=== PATIENT | male | born 1950 | race Caucasian/White ===

== ENCOUNTER 2021-11-30 15:18 | Inpatient (IN) ==
--- NOTE | 2021-11-30 16:04 | XRay Report ---
XR chest 1V portable CLINICAL HISTORY: Atypical chest pain TECHNIQUE: Single frontal radiograph of the chest was obtained. Comparison: Comparison is made to CT abdomen pelvis 07/10/2015 FINDINGS: No lines and tubes are seen. Cardiomegaly is noted. There is prominence and cephalization of the vasc ulature with Portia B lines seen. No evidence of pleural effusion or pneumothorax. IMPRESSION: Moderate pulmonary edema. Cardiomegaly. ACT 112: Negative or not required by law. Electronically signed by: Henok Queen M.D. 11/30/2021 4:03 PM
[2021-11-30] MEDS ORDERED: STAT IV Infusion **Titration per Protocol STA (16:05)
[2021-11-30] MEDS ORDERED: dilTIAZem HCl 5 MG/ML 5 ML VIAL IV STA (16:05)
--- NOTE | 2021-11-30 16:05 | Emergency Department Note ---
Impression & Plan Atrial tachycardia, Acute CHF ED Provider Note NAME: VIANNEY GLYNN AGE: 71 SEX: M : 1950 ARRIVES VIA: Walk-In INFORMANT: Patient ED PROVIDER(S): Daniel Bowman DO CHIEF COMPLAINT: Shortness of breath HPI: Patient is a 71-year-old male who presents to ER for shortness of breath. He notes this has been present for the past week. He follows with [facility] cardiology. Previous bypass. He notes he is more short of breath with lying flat or anytime he is up walking around. Denies any chest pain. No belly pain, nausea, vomiting, or diarrhea. No dysuria, urgency, or frequency. He does have persistent swelling of his left lower extremities which is unchanged. No other exacerbating or remitting factors. Patient was referred in from urgent care. ROS: See above HPI for pertinent positives & negatives. A total of 10 systems reviewed and were otherwise negative. PAST MEDICAL HISTORY:See Below PAST SURGICAL HISTORY:See Below FAMILY HISTORY:See Below SOCIAL HISTORY:See Below HOME MEDICATIONS:See Below ALLERGIES:See Below VITALS:See Below PHYSICAL EXAMINATION: GENERAL: Sitting up in bed, alert, well appearing, well nourished, no distress, non-toxic, obese EYE EXAM: normal conjunctiva. PERRL and EOM's grossly intact. OROPHARYNX: no exudate, no erythema, lips, buccal mucosa, and tongue normal and mucous membranes are moist NECK: supple, no nuchal rigidity, no adenopathy, non-tender LUNGS: Clear to auscultation. Normal chest wall mechanics HEART: no murmurs, S1 normal and S2 normal ABDOMEN: abdomen soft, non-tender, normo-active bowel sounds, no masses, no rebound or guarding. UPPER EXTREMITIES: upper extremities are grossly normal. LOWER EXTREMITIES: Pitting edema in the lower extremities NEURO EXAM: Normal sensorium, cranial nerves II-XII grossly intact, normal speech, no gross weakness of arms, no gross weakness of legs. MEDICAL DECISION MAKING: Patient is a 71-year-old male who presents ER for above-stated complaint. IV was established blood work was obtained. Labs show no significant leukocytosis or anemia. INR was unremarkable. BMP with a slightly elevated chloride. LFTs bilirubin was unremarkable. proBNP was elevated at 4000. Troponin was detectable but not positive. Covid influenza and RSV were negative. Chest x- ray with some cephalization. His EKG x2 initial appear to be A. fib versus atrial tachycardia with/sinus rhythm with intermittent SVT and the repeat showed a sinus rhythm with questionable SVT. This was reviewed with Dr. Landin who was also unclear as to the true underlying rhythm. Initially after the first EKG patient was given a Cardizem bolus and drip. I did stop this following the repeat EKG and discussed with cardiology. They recommended IV Lopressor 5 mg. They also recommended IV heparin drip in case this is intermittent A. fib. Patient had no bleeding risk factors I discussed this with him at bedside. Discussed with Isabella Sutton patient was admitted for further work-up. Patient remained on heparin upon mission. Triage Nursing notes reviewed. Limited review of prior medical records performed Vital Signs: reviewed and remarkable for HTN Differential diagnosis: Differential diagnoses includes but is not limited to pneumonia, bronchitis, COPD/Asthma exacerbation, pneumothorax, pulmonary embolism, congestive heart failure, acute coronary syndrome ER treatment provided: See below Diagnostics interpreted by me: ECG: Atrial tachycardia rate 139 PVCs present QTC 483 Septal leads No old to compare to EKG #2 Sinus rhythm 112 with intermittent couplets and triplets, PVCs present, right bundle branch block QTC 529 Cardiac Monitoring: An order was placed for continuous cardiac monitoring. The monitor shows a rate of 122 with sinus rhythm. Laboratory studies: As stated above and show below. Imaging studies: Chest x-ray with cephalization Consultation(s): Discussed with cardiology as stated above Discussed with Isabella busch as stated above Procedures: none Critical Care: I have personally spent 31 minutes of critical care time in the direct management of this patient. This includes bedside care, interpretation of diagnostic studies, and testing, discussion with consultants, patient, and family members, and other required patient management activities. This 31 minutes is in excess of all separately billable procedures. Past Med/Surg History Medical History (Updated 11/30/21 @ 20:53 by Daniel Bowman DO) CAD (coronary artery disease) DM type 2 (diabetes mellitus, type 2) Dyslipidemia HTN (hypertension) Kidney stone on left side RBBB (right bundle branch block with left anterior fascicular block) Surgical History H/O neck surgery H/O shoulder surgery S/P CABG x 3 Family History Brother Diabetes Mother Diabetes Social History (Updated 11/30/21 @ 18:52 by LESLIE Rose) Smoking Status: Former smoker Hx Alcohol Use: No Feels Safe at Home: Yes Allergies Allergies Allergy/AdvReac Type Severity Reaction Status Date / Time lisinopril Allergy Intermediate DRY Verified 11/30/21 16:02 CONSISTENT COUGH Home Meds Home Medications Medication Instructions Recorded Confirmed aspirin 81 mg tablet,delayed 81 mg PO DAILY 11/30/21 11/30/21 release ezetimibe 10 mg tablet (Zetia) 10 mg PO PM 11/30/21 11/30/21 metformin 500 mg tablet,extended 1,500 mg PO PM 11/30/21 11/30/21 release 24 hr metoprolol succinate 50 mg 50 mg PO DAILY 11/30/21 11/30/21 tablet,extended release 24 hr simvastatin 80 mg tablet 80 mg PO PM 11/30/21 11/30/21 telmisartan 40 mg tablet 40 mg PO DAILY 11/30/21 11/30/21 Results & Data (ED) Vital Signs Vital Signs - 24 hr 11/30/21 15:29 11/30/21 15:35 11/30/21 15:57 Temperature 36.9 C Temperature Source Temporal Artery Scan Pulse Rate 76 120 H Pulse Rate [Apical] Pulse Rate from SpO2 Sensor 124 H Pulse Rhythm [Apical] Respiratory Rate 20 15 Respiratory Effort / Characteristics Non-Labored Spontaneous Respiratory Depth Normal Blood Pressure 144/89 H Blood Pressure [Right Arm] Blood Pressure Mean 107 Blood Pressure Mean [Right Arm] Blood Pressure Position Sitting Pulse Oximetry 98 94 99 Oxygen Delivery Method Room Air Room Air Sepsis Recent Fever Within 48 Hours No Sepsis New/Unexplained Change in Mental Status N/A Sepsis Action Taken by Nursing No Action Required 11/30/21 16:00 11/30/21 16:10 11/30/21 16:20 Temperature Temperature Source Pulse Rate 121 H 101 H 106 H Pulse Rate [Apical] 113 H Pulse Rate from SpO2 Sensor 122 H 75 76 Pulse Rhythm [Apical] Regular Respiratory Rate 29 H 22 28 H Respiratory Effort / Characteristics Non-Labored Respiratory Depth Normal Blood Pressure Blood Pressure [Right Arm] 113/80 Blood Pressure Mean Blood Pressure Mean [Right Arm] 91 Blood Pressure Position Pulse Oximetry 97 97 96 Oxygen Delivery Method Room Air Sepsis Recent Fever Within 48 Hours Sepsis New/Unexplained Change in Mental Status Sepsis Action Taken by Nursing 11/30/21 16:21 11/30/21 16:25 11/30/21 16:27 Temperature Temperature Source Pulse Rate 110 H 117 H 100 H Pulse Rate [Apical] Pulse Rate from SpO2 Sensor 53 L 111 H 45 L Pulse Rhythm [Apical] Respiratory Rate 23 26 H 28 H Respiratory Effort / Characteristics Respiratory Depth Blood Pressure 113/80 118/76 117/76 Blood Pressure [Right Arm] Blood Pressure Mean 91 90 89 Blood Pressure Mean [Right Arm] Blood Pressure Position Pulse Oximetry 96 96 93 Oxygen Delivery Method Sepsis Recent Fever Within 48 Hours Sepsis New/Unexplained Change in Mental Status Sepsis Action Taken by Nursing 11/30/21 16:30 11/30/21 16:40 Temperature Temperature Source Pulse Rate 112 H 90 Pulse Rate [Apical] Pulse Rate from SpO2 Sensor 71 69 Pulse Rhythm [Apical] Respiratory Rate 21 30 H Respiratory Effort / Characteristics Respiratory Depth Blood Pressure 114/70 Blood Pressure [Right Arm] Blood Pressure Mean 84 Blood Pressure Mean [Right Arm] Blood Pressure Position Pulse Oximetry 93 96 Oxygen Delivery Method Sepsis Recent Fever Within 48 Hours Sepsis New/Unexplained Change in Mental Status Sepsis Action Taken by Nursing Laboratory Data Result diagrams: 11/30/21 16:05 11/30/21 16:05 Lab Results 11/30/21 11/30/21 11/30/21 Range/Units 16:05 16:05 16:05 WBC 6.88 (4.8-10.8) K/uL RBC 4.42 L (4.7-6.1) M/uL Hgb 13.4 L (14.0-18.0) g/dL Hct 42.6 (42-52) % MCV 96.4 (80-100) fL MCH 30.3 (25-34) pg MCHC 31.5 L (32-36) g/dL RDW Std Deviation 50.0 H (36.4-46.3) fL RDW Coeff of Eleuterio 14.2 (11.5-14.5) % Plt Count 231 (130-400) K/uL MPV 10.2 (7.4-10.4) fL Immature Gran % (Auto) 0.0 % Neut % (Auto) 73.9 % Lymph % (Auto) 16.7 % Murray % (Auto) 6.8 % Eos % (Auto) 2.2 % Baso % (Auto) 0.4 % Neut # (Auto) 5.08 (1.4-6.5) K/uL Lymph # (Auto) 1.15 L (1.2-3.4) K/uL Murray # (Auto) 0.47 (0.11-0.59) K/uL Eos # (Auto) 0.15 (0-0.5) K/uL Baso # (Auto) 0.03 (0-0.2) K/uL Immature Gran # (Auto) 0.00 (0.00-0.02) K/uL PT 11.0 (9.0-12.0) Seconds INR 1.1 (0.9-1.1) APTT 22.7 (21.0-31.0) Seconds PTT Ratio 0.9 Sodium 140 (136-145) mmol/L Potassium 4.6 (3.5-5.1) mmol/L Chloride 111 H (98-107) mmol/L Carbon Dioxide 24 (21-32) mmol/L Anion Gap 5.0 (3-11) BUN 31 H (7-18) mg/dl Creatinine 1.33 (0.6-1.4) mg/dl Est Cr Clr Drug Dosing 62.1 ml/min Est GFR ( Amer) 61.5 ml/min Est GFR (Non-Af Amer) 53.0 ml/min BUN/Creatinine Ratio 23.2 H (10-20) Glucose 186 H (70-99) mg/dl Calcium 9.4 (8.5-10.1) mg/dl Total Bilirubin 0.5 (0.2-1) mg/dl AST 14 L (15-37) U/L ALT 39 (12-78) Alkaline Phosphatase 76 (45-117) U/L Troponin I 0.020 (0-0.045) ng/ml NT-Pro-B Natriuret Pep (0-900) pg/ml Total Protein 7.2 (6.4-8.2) gm/dl Albumin 3.7 (3.4-5.0) gm/dl Globulin 3.5 (2.5-4.0) gm/dl Albumin/Globulin Ratio 1.1 (0.9-2) SARS-CoV-2 (PCR) (Negative) Influenza Type A (PCR) (Neg) Influenza Type B (PCR) (Neg) RSV (RT-PCR) (Neg) 11/30/21 11/30/21 Range/Units 16:05 16:05 WBC (4.8-10.8) K/uL RBC (4.7-6.1) M/uL Hgb (14.0-18.0) g/dL Hct (42-52) % MCV (80-100) fL MCH (25-34) pg MCHC (32-36) g/dL RDW Std Deviation (36.4-46.3) fL RDW Coeff of Eleuterio (11.5-14.5) % Plt Count (130-400) K/uL MPV (7.4-10.4) fL Immature Gran % (Auto) % Neut % (Auto) % Lymph % (Auto) % Murray % (Auto) % Eos % (Auto) % Baso % (Auto) % Neut # (Auto) (1.4-6.5) K/uL Lymph # (Auto) (1.2-3.4) K/uL Murray # (Auto) (0.11-0.59) K/uL Eos # (Auto) (0-0.5) K/uL Baso # (Auto) (0-0.2) K/uL Immature Gran # (Auto) (0.00-0.02) K/uL PT (9.0-12.0) Seconds INR (0.9-1.1) APTT (21.0-31.0) Seconds PTT Ratio Sodium (136-145) mmol/L Potassium (3.5-5.1) mmol/L Chloride (98-107) mmol/L Carbon Dioxide (21-32) mmol/L Anion Gap (3-11) BUN (7-18) mg/dl Creatinine (0.6-1.4) mg/dl Est Cr Clr Drug Dosing ml/min Est GFR ( Amer) ml/min Est GFR (Non-Af Amer) ml/min BUN/Creatinine Ratio (10-20) Glucose (70-99) mg/dl Calcium (8.5-10.1) mg/dl Total Bilirubin (0.2-1) mg/dl AST (15-37) U/L ALT (12-78) Alkaline Phosphatase (45-117) U/L Troponin I (0-0.045) ng/ml NT-Pro-B Natriuret Pep 4271 H (0-900) pg/ml Total Protein (6.4-8.2) gm/dl Albumin (3.4-5.0) gm/dl Globulin (2.5-4.0) gm/dl Albumin/Globulin Ratio (0.9-2) SARS-CoV-2 (PCR) NEGATIVE (Negative) Influenza Type A (PCR) Negative (Neg) Influenza Type B (PCR) Negative (Neg) RSV (RT-PCR) Negative (Neg) Administered Medications Heparin Sodium/Dextrose (Heparin Iv Adult Wt-Based Low-Dose With Bolus Protocol) 1 ea IV Q1H [facility]; Protocol Stop: 12/30/21 18:29 Last Admin: 11/30/21 19:12 Dose: Not Given Documented by: [id number] Heparin Sodium/Dextrose (Heparin Sodium/Dextrose) 25,000 units in 500 mls @ 20 mls/hr IV .Q24H [facility]; Protocol Stop: 12/30/21 18:29 Last Admin: 11/30/21 18:45 Dose: 1,000 units/hr, 20 mls/hr Documented by: [id number] Cosigned by: [id number] Discontinued Medications Diltiazem HCl (Diltiazem Hcl 5 Mg/Ml 5 Ml Vial) 10 mg IV NOW STA Stop: 11/30/21 16:06 Last Admin: 11/30/21 16:22 Dose: 10 mg Documented by: [id number] Cosigned by: [id number] Furosemide (Furosemide Inj 20 Mg/2 Ml Vial) 20 mg IV ONE ONE Stop: 11/30/21 16:48 Last Admin: 11/30/21 17:35 Dose: 20 mg Documented by: [id number] Furosemide (Furosemide Inj 20 Mg/2 Ml Vial) 20 mg IV ONE ONE Stop: 11/30/21 18:26 Last Admin: 11/30/21 18:49 Dose: Not Given Documented by: [id number] Furosemide (Furosemide 40 Mg/4 Ml Vial) Confirm Administered Dose 40 mg IV .STK- MED ONE Stop: 11/30/21 18:48 Last Admin: 11/30/21 18:48 Dose: 20 mg Documented by: [id number] Heparin Sodium (Porcine) (Heparin Sod (Porcine) 1000 Unit/Ml) 1 units IV NOW ONE Stop: 11/30/21 18:31 Last Admin: 11/30/21 18:44 Dose: 4,000 units Documented by: [id number] Cosigned by: [id number] Heparin Sodium (Porcine) (Heparin Sod (Porcine) 1000 Unit/Ml) 4,000 units IV NOW ONE Stop: 11/30/21 19:01 Last Admin: 11/30/21 19:01 Dose: Not Given Documented by: [id number] Heparin Sodium/Dextrose (Heparin Iv Adult Wt-Based Low-Dose With Bolus Protocol) 1 ea N/A NOW STA; Protocol Stop: 11/30/21 18:16 Last Admin: 11/30/21 18:45 Dose: 1 ea Documented by: [id number] Diltiazem HCl 125 mg/ Dextrose 125 mls @ 5 mls/hr IV .Q24H [facility]; Protocol Stop: 12/30/21 16:14 Last Titration: 11/30/21 17:39 Dose: 0 mg/hr, 0 mls/hr Documented by: [id number] Cosigned by: [id number] Titration: 11/30/21 17:10 Dose: 0 mg/hr, 0 mls/hr Documented by: [id number] Cosigned by: [id number] Admin: 11/30/21 16:38 Dose: 5 mg/hr, 5 mls/hr Documented by: [id number] Cosigned by: [id number] Metoprolol Tartrate (Metoprolol Tartrate 1 Mg/Ml Vial) 5 mg IV NOW STA Stop: 11/30/21 18:09 Last Admin: 11/30/21 18:26 Dose: 5 mg Documented by: [id number] Miscellaneous (Stat Iv Infusion Titration Per Protocol) 1 ea N/A NOW STA Stop: 11/30/21 16:06 Last Admin: 11/30/21 16:42 Dose: 1 ea Documented by: [id number] Imaging Data Radiologist's Impression: Chest X-Ray 11/30/21 15:35 XR chest 1V portable CLINICAL HISTORY: Atypical chest pain TECHNIQUE: Single frontal radiograph of the chest was obtained. Comparison: Comparison is made to CT abdomen pelvis 07/10/2015 FINDINGS: No lines and tubes are seen. Cardiomegaly is noted. There is prominence and cephalization of the vasculature with Portia B lines seen. No evidence of p leural effusion or pneumothorax. IMPRESSION: Moderate pulmonary edema. Cardiomegaly. ACT 112: Negative or not required by law. Electronically signed by: Henok Queen M.D. 11/30/2021 4:03 PM Discharge Plan Visit Data Chief Complaint: Arrhythmia/Palpitations Stated Complaint: IRREGULAR HEART BEAT ED Provider: Daniel Bowman Discharge Problem: Atrial tachycardia, Acute CHF
[2021-11-30 16:15] LABS: Basophils # (auto) 0.03 K/uL (0-0.2); Basophils % (auto) 0.4 %; Eosinophils # (auto) 0.15 K/uL (0-0.5); Eosinophils % (auto) 2.2 %; Hematocrit (blood only) 42.6 % (42-52); Hemoglobin 13.4 g/dL (14.0-18.0); Lymphocytes # (auto) 1.15 K/uL (1.2-3.4); Lymphocytes % (auto) 16.7 %; Mean Corpuscular Hemoglobin 30.3 pg (25-34); Mean Corpuscular Hgb Conc 31.5 g/dL (32-36); Mean Corpuscular Volume 96.4 fL (80-100); Mean Platelet Volume 10.2 fL (7.4-10.4); Monocytes # (auto) 0.47 K/uL (0.11-0.59); Monocytes % (auto) 6.8 %; Neutrophils # (auto) 5.08 K/uL (1.4-6.5); Neutrophils % (auto) 73.9 %; Platelet Count 231 K/uL (130-400); RDW Coefficient of Variation 14.2 % (11.5-14.5); Red Blood Count 4.42 M/uL (4.7-6.1); White Blood Count 6.88 K/uL (4.8-10.8)
[2021-11-30] MEDS ORDERED: dilTIAZem HCL 125 MG in DEXTROSE 5% 100 ML IV SCH (16:15)
[2021-11-30 16:33] LABS: INR 1.1 (0.9-1.1); Partial Thromboplastin Ratio 0.9; Partial Thromboplastin Time 22.7 Seconds (21.0-31.0)
[2021-11-30 16:37] LABS: Albumin Level 3.7 gm/dl (3.4-5.0); BUN Creatinine Ratio 23.2 (10-20); Calcium 9.4 mg/dl (8.5-10.1); Creatinine Clr Calc Pharmacy 62.1 ml/min; Est GFR (African American) 61.5 ml/min; Potassium 4.6 mmol/L (3.5-5.1)
[2021-11-30 16:41] LABS: Albumin Globulin Ratio 1.1 (0.9-2); Bilirubin,Total 0.5 mg/dl (0.2-1); Globulin 3.5 gm/dl (2.5-4.0); Total Protein 7.2 gm/dl (6.4-8.2); Troponin I 0.02 ng/ml (0-0.045)
[2021-11-30] MEDS ORDERED: FUROSEMIDE INJ 20 MG/2 ML VIAL IV ONE ×2 (16:47→18:25)
[2021-11-30 16:54] LABS: Influenza A virus by PCR Negative (Neg); Influenza B virus by PCR Negative (Neg); RSV by PCR Negative (Neg); SARS CoV2 RNA(COVID-19) InHosp NEGATIVE (Negative)
[2021-11-30] MEDS ORDERED: METOPROLOL TARTRATE 1 MG/ML VIAL IV STA (18:08)
[2021-11-30] MEDS ORDERED: Heparin IV Adult Wt-Based Low-Dose WITH Bolus Protocol STA (18:15)
[2021-11-30] MEDS ORDERED: HEPARIN SODIUM/DEXTROSE 25,000 UNITS/500 ML BAG IV SCH (18:30)
[2021-11-30] MEDS ORDERED: HEPARIN SOD (PORCINE) 1000 UNIT/ML IV ONE ×2 (18:30→19:00)
[2021-11-30] MEDS ORDERED: FUROSEMIDE 40 MG/4 ML VIAL IV ONE (18:47)
--- NOTE | 2021-11-30 19:01 | History & Physical Report ---
Date of Service November 30, 2021 Assessment & Plan (1) Tachycardia: Plan: -Admit to telemetry -Patient presenting by referral of [facility] for evaluation of tachycardia -In the ED, patient's heart rate is in the 130s. EKG shows RBBB and frequent ectopy -Patient given diltiazem 10 mg IV bolus and started on a drip -Case was discussed with cardiology by ED provider. Recommends stopping diltiazem and giving metoprolol 5 mg IV x 1 and starting metoprolol tartrate 25 mg PO q6h (patient on metoprolol succinate 50 mg daily) -Given possible atrial fibrillation, patient will be started on IV heparin drip (2) RBBB (right bundle branch block with left anterior fascicular block): Plan: -History of chronic RBBB (3) Acute CHF: Plan: -CXR shows pulmonary edema, patient reporting exertional shortness of breath, orthopnea, lower extremity edema, proBNP 4200 -? Tachycardia induced vs other -s/p Lasix 20 mg IV in the ED, give an additional Lasix 20 mg IV now -Continue Lasix 40 mg IV daily -Echo (4) CAD (coronary artery disease): Plan: -No reports of chest pain -Continue ASA, statin, Zetia, beta-cassie (5) HTN (hypertension): Plan: -Hold telmisartan while titrating metoprolol (6) DM type 2 (diabetes mellitus, type 2): Plan: -Hgb A1c 7.7 07/2021 -Hold oral agents and utilize NovoLog per protocol while hospitalized (7) DVT prophylaxis: Plan: -On IV heparin drip History of Present Illness Chief Complaint: Shortness of breath Primary Care Provider: Anselmo Junior MD 71-year-old male with PMH DM type II, CAD s/p CABG x 3 in 1999, and other problems listed below who presents to the ED by referral of [facility] for evaluation of tachycardia and shortness of breath. Patient notes worsening exertional shortness of breath over the past week or so. Also reports orthopnea. Patient has some lower extremity edema on exam however patient feels this is near baseline for him towards the end of the day. At [facility], patient was noted to be tachycardic and was referred to the ED for further evaluation. Patient denies chest pain and palpitations. Reports some mild ligh theadedness when standing too quickly. Denies dizziness, diaphoresis, syncopal event. No abdominal pain, nausea, vomiting, diarrhea. Denies urinary symptoms. In the ED, patient was tachycardic in the 130s. EKG shows an unchanged RBBB however with frequent ectopy. CXR shows pulmonary edema. Labs are unremarkable. Patient was given diltiazem 10 mg bolus and started on a drip, Lasix 20 mg IV. Allergies Allergy/AdvReac Type Severity Reaction Status Date / Time lisinopril Allergy Intermediate DRY Verified 11/30/21 16:02 CONSISTENT COUGH Home Medications Medication Instructions Recorded Confirmed Type aspirin 81 mg tablet,delayed 81 mg PO DAILY 11/30/21 11/30/21 History release ezetimibe 10 mg tablet (Zetia) 10 mg PO PM 11/30/21 11/30/21 History metformin 500 mg tablet,extended 1,500 mg PO PM 11/30/21 11/30/21 History release 24 hr metoprolol succinate 50 mg 50 mg PO DAILY 11/30/21 11/30/21 History tablet,extended release 24 hr simvastatin 80 mg tablet 80 mg PO PM 11/30/21 11/30/21 History telmisartan 40 mg tablet 40 mg PO DAILY 11/30/21 11/30/21 History Past Med/Surg History Medical History (Updated 11/30/21 @ 20:53 by Daniel Bowman DO) CAD (coronary artery disease) DM type 2 (diabetes mellitus, type 2) Dyslipidemia HTN (hypertension) Kidney stone on left side RBBB (right bundle branch block with left anterior fascicular block) Surgical History H/O neck surgery H/O shoulder surgery S/P CABG x 3 Family History Brother Diabetes Mother Diabetes Social History (Updated 11/30/21 @ 18:52 by LESLIE Rose) Smoking Status: Former smoker Second Hand Exposure: No; Do You Dip or Chew Tobacco: No; Tobacco Cessation Education Requested by Patient: No Hx Alcohol Use: No Hx Substance Use: No Preferred Language: Samoan Communication Ability Comment: Not applicable Mask Former Required: No Beliefs That Will Affect Care: [place] Current Living Situation: Spouse Feels Safe at Home: Yes Assistive Devices: None Review of Systems Review of Systems: ROS per HPI, all other systems reviewed and negative Physical Exam Constitutional: WD/WN, vitals as above Eyes: PERRL, conjunctivae normal, anicteric sclerae ENMT: external ear and nose normal, oropharynx normal Respiratory: normal respiratory effort; no respiratory distress Auscultation: + crackles (Left base) Cardiovascular: Rate/Rhythm: + tachycardic and + irregularly irregular Vessels: normal peripheral pulses Extremities: + edema (+1 edema BLE) Gastrointestinal (Abdomen): normal bowel sounds, soft, nontender, no hepatosplenomegaly Musculoskeletal: no cyanosis or clubbing, extremities motor strength 5/5 Skin: no rashes, warm and dry Neurologic: PERRL, EOMI, accommodation nl, no face palsy, no dysarthria Psychiatric: A+Ox3, euthymic affect Results & Data Results & Data ([facility]) Vital Signs (Past 12 Hours) Vital Signs Temp Pulse Pulse Resp BP BP Pulse Ox 11/30/21 18:26 120 H 130/71 11/30/21 16:40 90 30 H 96 11/30/21 16:30 112 H 21 114/70 93 11/30/21 16:27 100 H 28 H 117/76 93 11/30/21 16:25 117 H 26 H 118/76 96 11/30/21 16:21 110 H 23 113/80 96 11/30/21 16:20 106 H 113 H 28 H 113/80 96 11/30/21 16:10 101 H 22 97 11/30/21 16:00 121 H 29 H 97 11/30/21 15:57 120 H 15 99 11/30/21 15:35 94 11/30/21 15:29 36.9 C 76 20 144/89 H 98 Laboratory Results Short CBC 11/30/21 Range/Units 16:05 WBC 6.88 (4.8-10.8) K/uL Hgb 13.4 L (14.0-18.0) g/dL Hct 42.6 (42-52) % Plt Count 231 (130-400) K/uL BMP 11/30/21 16:05 Sodium 140 Potassium 4.6 Chloride 111 H Carbon Dioxide 24 BUN 31 H Creatinine 1.33 Glucose 186 H Calcium 9.4 Cardiac Enzymes 11/30/21 Range/Units 16:05 Troponin I 0.020 (0-0.045) ng/ml Liver Function 11/30/21 Range/Units 16:05 Total Bilirubin 0.5 (0.2-1) mg/dl AST 14 L (15-37) U/L ALT 39 (12-78) Alkaline Phosphatase 76 (45-117) U/L Albumin 3.7 (3.4-5.0) gm/dl Diagnostic Findings Chest X-Ray 11/30/21 15:35 XR chest 1V portable CLINICAL HISTORY: Atypical chest pain TECHNIQUE: Single frontal radiograph of the chest was obtained. Comparison: Comparison is made to CT abdomen pelvis 07/10/2015 FINDINGS: No lines and tubes are seen. Cardiomegaly is noted. There is prominence and cephalization of the vasculature with Portia B lines seen. No evidence of pleural effusion or pneumothorax. IMPRESSION: Moderate pulmonary edema. Cardiomegaly. ACT 112: Negative or not required by law. Electronically signed by: Henok Queen M.D. 11/30/2021 4:03 PM Code Status & VTE Plan VTE Prophylaxis Plan VTE Prophylaxis will be ordered: Yes Supervising Physician Co-Signing Physician Notes Pt seen and examined by me, laura coordinated w/ L. LESLIE Strickland, pls refer to her note above for further detail. 71 yo M male w/DM type II, CAD s/p CABG x 3 in 1999, who presents to the ED by referral of [facility] for evaluation of tachycardia and shortness of breath. Patient notes worsening exertional shortness of breath over the past week or so. Also reports orthopnea. Patient has some lower extremity edema on exam however patient feels this is near baseline for him towards the end of the day. Patient denies chest pain and palpitations. Reports some mild lightheadedness when standing too quickly. Denies dizziness, diaphoresis, sy ncopal event. No abdominal pain, nausea, vomiting, diarrhea. Denies urinary symptoms. In the ED, patient was tachycardic in the 130s. EKG shows an unchanged RBBB however with frequent ectopy. CXR shows pulmonary edema. Labs are unremarkable. Patient was given diltiazem 10 mg bolus and started on a drip, Lasix 20 mg IV. Currently he is sitting up in the chair, in no acute distress, breathing comfortably on room air. States he cannot lay flat/ is uncomfortable in bed. Patient's is at the bedside, also states that he has been snoring/breathing abnormally at night. Patient reports no history of sleep apnea. Lungs are mostly clear to auscultation bilaterally, with minimal basilar crackles, no wheezing noted. 1+ lower extremity edema. Patient is tachycardic, in low 100s, irregular. Abdomen soft, nontender, obese, positive bowel sounds. Skin is warm dry, well perfused. Patient was started on IV heparin, and metoprolol. Will obtain echocardiogram, and will further discuss with cardiology. MD Sandhya
[2021-11-30] MEDS: Heparin IV Adult Wt-Based Low-Dose WITH Bolus Protocol IV SCH (19:12)
[2021-11-30] MEDS ORDERED: GLUCAGON FOR INJ 1 MG VIAL SQ PRN (20:43)
[2021-11-30] MEDS ORDERED: ACETAMINOPHEN 325 MG TAB PO PRN (20:43)
[2021-11-30] MEDS ORDERED: DEXTROSE 50% 50 ML SYRINGE IV PRN (20:43)
[2021-11-30] MEDS ORDERED: GLUCOSE 40% GEL 15 GM TUBE PO PRN (20:43)
[2021-11-30] MEDS ORDERED: GLUCOSE 10 TABS/TUBE PO PRN (20:43)
[2021-11-30] MEDS ORDERED: CARBOHYDRATES FOR HYPOGLYCEMIA PO PRN (20:43)
[2021-11-30] MEDS: EZETIMIBE 10 MG TABLET PO SCH (23:42)
[2021-11-30] MEDS: METOPROLOL TARTRATE 25 MG TAB PO SCH (23:43)
[2021-11-30] MEDS: SIMVASTATIN 80 MG TAB PO SCH (23:43)
[2021-11-30] MEDS: INSULIN ASPART PER UNIT SC SCH (23:52)
[2021-12-01 01:10] LABS: Partial Thromboplastin Ratio 1.1; Partial Thromboplastin Time 28.2 Seconds (21.0-31.0)
[2021-12-01] MEDS: Heparin IV Adult Wt-Based Low-Dose WITH Bolus Protocol IV SCH ×6 (02:56→07:27)
[2021-12-01] MEDS: METOPROLOL TARTRATE 25 MG TAB PO SCH ×4 (03:12→20:37)
[2021-12-01 06:51] LABS: Hematocrit (blood only) 37.9 % (42-52); Hemoglobin 12.3 g/dL (14.0-18.0); Mean Corpuscular Hemoglobin 30.8 pg (25-34); Mean Corpuscular Hgb Conc 32.5 g/dL (32-36); Platelet Count 199 K/uL (130-400); RDW Standard Deviation 48.8 fL (36.4-46.3); Red Blood Count 3.99 M/uL (4.7-6.1); White Blood Count 7.26 K/uL (4.8-10.8)
--- NOTE | 2021-12-01 07:02 | Hospitalist Progress Note ---
Date of Service December 01, 2021 Assessment & Plan (1) Tachycardia: Plan: -Admitted to telemetry -Patient presenting by referral of [place] for evaluation of tachycardia -In the ED, patient's heart rate is in the 130s. EKG on admission shows RBBB and frequent ectopy -Patient given diltiazem 10 mg IV bolus and started on a drip -Case was discussed with cardiology by ED provider. Recommends stopping diltiazem and giving metoprolol 5 mg IV x 1 and starting metoprolol tartrate 25 mg PO q6h (patient on metoprolol succinate 50 mg daily) -Given possible atrial fibrillation, patient was started on IV heparin drip, plan to start Eliquis on DC - Overnight telemetry reveals episodes of atrial fibrillation/flutter as well as periods of sinus rhythm with frequent PACs/PVCs. Echo obtained - LV is moderately dilated. Mild concentric LVH. EF 25 to 30%. Severe global hypokinesis of LV. RV systolic function is reduced. LA is moderately dilated. Moderate mitral regurg. Mild tricuspid regurg. Estimated systolic pulmonary pressure is 46 mmHg. Dilated inferior vena cava with reduced collapsibility with sniff indicates an elevated right atrial pressure of 15 mmHg. (2) RBBB (right bundle branch block with left anterior fascicular block): Plan: -History of chronic RBBB (3) Acute CHF: Plan: Acute decompensated heart failure with reduced ejection fraction -CXR shows pulmonary edema, patient reporting exertional shortness of breath, orthopnea, lower extremity edema, proBNP 4200 -? Tachycardia induced vs other -s/p Lasix 20 mg IV in the ED, give an additional Lasix 20 mg IV now -Continue Lasix 40 mg IV daily -Echo -shows significantly reduced LV syst. function, EF 25 to 30% -Continue diuresis with Lasix - Discontinue ARB in favor of Entresto twice daily. Consider addition of Aldactone during hospitalization as blood pressure allows. - monitor I/Os, daily weights (4) CAD (coronary artery disease): Plan: -No reports of chest pain -Continue ASA, statin, Zetia, beta-cassie (5) HTN (hypertension): Plan: -Hold telmisartan while titrating metoprolol - plan to stop ARB, and start Entresto (6) DM type 2 (diabetes mellitus, type 2): Plan: -Hgb A1c 7.7 07/2021 -Hold oral agents and utilize NovoLog per protocol while hospitalized (7) DVT prophylaxis: Plan: -On IV heparin drip Admission and Anticipated Discharge Date Admission Date: November 30, 2021 Subjective Patient seen in a follow-up of arrhythmia, CHF exacerbation Currently patient is lying in bed, actually flat, resting Yesterday he was only able to sit in a chair, and laying flat was uncomfortable, made him short of breath Currently denies any chest pain palpitations, but continues to feel short of breath No fevers, chills, abdominal pain, nausea vomiting Review of Systems Review of Systems: All systems reviewed & are unremarkable except as noted in Subjective Physical Exam Physical Exam: Constitutional:L WD/WN, obese M in NAD Eyes: PERRL, EOMI ENMT: external ear and n ose normal, oropha rynx normal Respiratory: normal respiratory effort; no respir atory distress Au scultation: + min. basilar crackles, no wheezing, good air movement Cardiovascular:L Regular w/ ectopy , Extremities: + e russell (+1 edema BLE ) Gastrointestinal ( Abdomen): normal bowel sound s, soft, nontender , obese Musculoskeletal: extremities motor strength 5/5 Skin: no rashes, warm an d dry Neurologic: PERRL, EOMI, no fa ce palsy, no dysar thria, moves extre mities Psychiatric: A+Ox3, euthymic af fect Results & Data Results & Data ([facility]) Vital Signs (Past 12 Hours) Vital Signs Temp Pulse Resp BP Pulse Ox Pulse Ox 12/01/21 05:53 36.5 C 60 18 101/70 93 12/01/21 03:11 73 106/66 95 12/01/21 02:00 88 22 101/67 96 97 12/01/21 01:13 36.7 C 48 L 18 104/55 L 96 11/30/21 23:33 97 11/30/21 23:32 118 H 18 135/60 97 11/30/21 19:28 105 H 16 93/72 L 98 11/30/21 19:27 98 Laboratory Results 12/01/21 12/01/21 12/01/21 Range/Units 07:42 06:40 06:40 WBC (4.8-10.8) K/uL RBC (4.7-6.1) M/uL Hgb (14.0-18.0) g/dL Hct (42-52) % MCV (80-100) fL MCH (25-34) pg MCHC (32-36) g/dL RDW Std Deviation (36.4-46.3) fL RDW Coeff of Eleuterio (11.5-14.5) % Plt Count (130-400) K/uL MPV (7.4-10.4) fL Immature Gran % (Auto) % Neut % (Auto) % Lymph % (Auto) % [place] % (Auto) % Eos % (Auto) % Baso % (Auto) % Neut # (Auto) (1.4-6.5) K/uL Lymph # (Auto) (1.2-3.4) K/uL [place] # (Auto) (0.11-0.59) K/uL Eos # (Auto) (0-0.5) K/uL Baso # (Auto) (0-0.2) K/uL Immature Gran # (Auto) (0.00-0.02) K/uL PT (9.0-12.0) Seconds INR (0.9-1.1) APTT 31.2 H (21.0-31.0) Seconds PTT Ratio 1.2 Sodium 137 (136-145) mmol/L Potassium 4.7 (3.5-5.1) mmol/L Chloride 106 (98-107) mmol/L Carbon Dioxide 23 (21-32) mmol/L Anion Gap 7.0 (3-11) BUN 31 H (7-18) mg/dl Creatinine 1.38 (0.6-1.4) mg/dl Est Cr Clr Drug Dosing 59.8 ml/min Est GFR ( Amer) 58.8 ml/min Est GFR (Non-Af Amer) 50.7 ml/min BUN/Creatinine Ratio 22.8 H (10-20) Glucose 171 H (70-99) mg/dl POC Glucose 173 H (70-99) mg/dl Calcium 8.6 (8.5-10.1) mg/dl Total Bilirubin (0.2-1) mg/dl AST (15-37) U/L ALT (12-78) Alkaline Phosphatase (45-117) U/L Troponin I (0-0.045) ng/ml NT-Pro-B Natriuret Pep (0-900) pg/ml Total Protein (6.4-8.2) gm/dl Albumin (3.4-5.0) gm/dl Globulin (2.5-4.0) gm/dl Albumin/Globulin Ratio (0.9-2) SARS-CoV-2 (PCR) (Negative) Influenza Type A (PCR) (Neg) Influenza Type B (PCR) (Neg) RSV (RT-PCR) (Neg) 12/01/21 12/01/21 11/30/21 Range/Units 06:40 00:41 23:39 WBC 7.26 (4.8-10.8) K/uL RBC 3.99 L (4.7-6.1) M/uL Hgb 12.3 L (14.0-18.0) g/dL Hct 37.9 L (42-52) % MCV 95.0 (80-100) fL MCH 30.8 (25-34) pg MCHC 32.5 (32-36) g/dL RDW Std Deviation 48.8 H (36.4-46.3) fL RDW Coeff of Eleuterio 14.0 (11.5-14.5) % Plt Count 199 (130-400) K/uL MPV 10.0 (7.4-10.4) fL Immature Gran % (Auto) % Neut % (Auto) % Lymph % (Auto) % [place] % (Auto) % Eos % (Auto) % Baso % (Auto) % Neut # (Auto) (1.4-6.5) K/uL Lymph # (Auto) (1.2-3.4) K/uL [place] # (Auto) (0.11-0.59) K/uL Eos # (Auto) (0-0.5) K/uL Baso # (Auto) (0-0.2) K/uL Immature Gran # (Auto) (0.00-0.02) K/uL PT (9.0-12.0) Seconds INR (0.9-1.1) APTT 28.2 (21.0-31.0) Seconds PTT Ratio 1.1 Sodium (136-145) mmol/L Potassium (3.5-5.1) mmol/L Chloride (98-107) mmol/L Carbon Dioxide (21-32) mmol/L Anion Gap (3-11) BUN (7-18) mg/dl Creatinine (0.6-1.4) mg/dl Est Cr Clr Drug Dosing ml/min Est GFR ( Amer) ml/min Est GFR (Non-Af Amer) ml/min BUN/Creatinine Ratio (10-20) Glucose (70-99) mg/dl POC Glucose 98 (70-99) mg/dl Calcium (8.5-10.1) mg/dl Total Bilirubin (0.2-1) mg/dl AST (15-37) U/L ALT (12-78) Alkaline Phosphatase (45-117) U/L Troponin I (0-0.045) ng/ml NT-Pro-B Natriuret Pep (0-900) pg/ml Total Protein (6.4-8.2) gm/dl Albumin (3.4-5.0) gm/dl Globulin (2.5-4.0) gm/dl Albumin/Globulin Ratio (0.9-2) SARS-CoV-2 (PCR) (Negative) Influenza Type A (PCR) (Neg) Influenza Type B (PCR) (Neg) RSV (RT-PCR) (Neg) 11/30/21 11/30/21 11/30/21 Range/Units 16:05 16:05 16:05 WBC (4.8-10.8) K/uL RBC (4.7-6.1) M/uL Hgb (14.0-18.0) g/dL Hct (42-52) % MCV (80-100) fL MCH (25-34) pg MCHC (32-36) g/dL RDW Std Deviation (36.4-46.3) fL RDW Coeff of Eleuterio (11.5-14.5) % Plt Count (130-400) K/uL MPV (7.4-10.4) fL Immature Gran % (Auto) % Neut % (Auto) % Lymph % (Auto) % [place] % (Auto) % Eos % (Auto) % Baso % (Auto) % Neut # (Auto) (1.4-6.5) K/uL Lymph # (Auto) (1.2-3.4) K/uL [place] # (Auto) (0.11-0.59) K/uL Eos # (Auto) (0-0.5) K/uL Baso # (Auto) (0-0.2) K/uL Immature Gran # (Auto) (0.00-0.02) K/uL PT (9.0-12.0) Seconds INR (0.9-1.1) APTT (21.0-31.0) Seconds PTT Ratio Sodium 140 (136-145) mmol/L Potassium 4.6 (3.5-5.1) mmol/L Chloride 111 H (98-107) mmol/L Carbon Dioxide 24 (21-32) mmol/L Anion Gap 5.0 (3-11) BUN 31 H (7-18) mg/dl Creatinine 1.33 (0.6-1.4) mg/dl Est Cr Clr Drug Dosing 62.1 ml/min Est GFR ( Amer) 61.5 ml/min Est GFR (Non-Af Amer) 53.0 ml/min BUN/Creatinine Ratio 23.2 H (10-20) Glucose 186 H (70-99) mg/dl POC Glucose (70-99) mg/dl Calcium 9.4 (8.5-10.1) mg/dl Total Bilirubin 0.5 (0.2-1) mg/dl AST 14 L (15-37) U/L ALT 39 (12-78) Alkaline Phosphatase 76 (45-117) U/L Troponin I 0.020 (0-0.045) ng/ml NT-Pro-B Natriuret Pep 4271 H (0-900) pg/ml Total Protein 7.2 (6.4-8.2) gm/dl Albumin 3.7 (3.4-5.0) gm/dl Globulin 3.5 (2.5-4.0) gm/dl Albumin/Globulin Ratio 1.1 (0.9-2) SARS-CoV-2 (PCR) NEGATIVE (Negative) Influenza Type A (PCR) Negative (Neg) Influenza Type B (PCR) Negative (Neg) RSV (RT-PCR) Negative (Neg) 11/30/21 11/30/21 Range/Units 16:05 16:05 WBC 6.88 (4.8-10.8) K/uL RBC 4.42 L (4.7-6.1) M/uL Hgb 13.4 L (14.0-18.0) g/dL Hct 42.6 (42-52) % MCV 96.4 (80-100) fL MCH 30.3 (25-34) pg MCHC 31.5 L (32-36) g/dL RDW Std Deviation 50.0 H (36.4-46.3) fL RDW Coeff of Eleuterio 14.2 (11.5-14.5) % Plt Count 231 (130-400) K/uL MPV 10.2 (7.4-10.4) fL Immature Gran % (Auto) 0.0 % Neut % (Auto) 73.9 % Lymph % (Auto) 16.7 % [place] % (Auto) 6.8 % Eos % (Auto) 2.2 % Baso % (Auto) 0.4 % Neut # (Auto) 5.08 (1.4-6.5) K/uL Lymph # (Auto) 1.15 L (1.2-3.4) K/uL [place] # (Auto) 0.47 (0.11-0.59) K/uL Eos # (Auto) 0.15 (0-0.5) K/uL Baso # (Auto) 0.03 (0-0.2) K/uL Immature Gran # (Auto) 0.00 (0.00-0.02) K/uL PT 11.0 (9.0-12.0) Seconds INR 1.1 (0.9-1.1) APTT 22.7 (21.0-31.0) Seconds PTT Ratio 0.9 Sodium (136-145) mmol/L Potassium (3.5-5.1) mmol/L Chloride (98-107) mmol/L Carbon Dioxide (21-32) mmol/L Anion Gap (3-11) BUN (7-18) mg/dl Creatinine (0.6-1.4) mg/dl Est Cr Clr Drug Dosing ml/min Est GFR ( Amer) ml/min Est GFR (Non-Af Amer) ml/min BUN/Creatinine Ratio (10-20) Glucose (70-99) mg/dl POC Glucose (70-99) mg/dl Calcium (8.5-10.1) mg/dl Total Bilirubin (0.2-1) mg/dl AST (15-37) U/L ALT (12-78) Alkaline Phosphatase (45-117) U/L Troponin I (0-0.045) ng/ml NT-Pro-B Natriuret Pep (0-900) pg/ml Total Protein (6.4-8.2) gm/dl Albumin (3.4-5.0) gm/dl Globulin (2.5-4.0) gm/dl Albumin/Globulin Ratio (0.9-2) SARS-CoV-2 (PCR) (Negative) Influenza Type A (PCR) (Neg) Influenza Type B (PCR) (Neg) RSV (RT-PCR) (Neg) Medications Administered Current Inpatient Medications Acetaminophen (Acetaminophen 325 Mg Tab) 650 mg PO Q4H PRN PRN Reason: Pain or Fever Stop: 12/30/21 20:42 Aspirin (Aspirin 81 Mg Ectab) 81 mg PO DAILY GINA Stop: 12/31/21 08:59 Dextrose (Dextrose 50% 50 Ml Syringe) 25 - 50 ml IV UD PRN; Protocol PRN Reason: Hypoglycemia Protocol Stop: 12/30/21 20:42 Ezetimibe (Ezetimibe 10 Mg Tablet) 10 mg PO PM GINA Stop: 12/30/21 20:59 Last Admin: 11/30/21 23:42 Dose: 10 mg Documented by: Furosemide (Furosemide 40 Mg/4 Ml Vial) 40 mg IV DAILY GINA Stop: 12/31/21 08:59 Glucagon (Glucagon For Inj 1 Mg Vial) 1 mg SQ UD PRN; Protocol PRN Reason: Hypoglycemia Protocol Stop: 12/30/21 20:42 Glucose (Glucose 10 Tabs/Tube) 4 - 8 tabs PO UD PRN; Protocol PRN Reason: Hypoglycemia Protocol Stop: 12/30/21 20:42 Glucose (Glucose 40% Gel 15 Gm Tube) 15 - 30 gm PO UD PRN; Protocol PRN Reason: Hypoglycemia Protocol Stop: 12/30/21 20:42 Heparin Sodium/Dextrose (Heparin Iv Adult Wt-Based Low-Dose With Bolus Protocol) 1 ea IV Q1H GINA; Protocol Stop: 12/30/21 18:29 Last Admin: 12/01/21 05:59 Dose: Not Given Documented by: Heparin Sodium/Dextrose (Heparin Sodium/Dextrose) 25,000 units in 500 mls @ 20 mls/hr IV .Q24H GINA; Protocol Stop: 12/30/21 18:29 Last Titration: 12/01/21 06:59 Dose: 1,000 units/hr, 20 mls/hr Documented by: Insulin Aspart (Insulin Aspart Per Unit) 0 units SC ACHS [facility] Stop: 12/30/21 20:59 Last Admin: 11/30/21 23:52 Dose: Not Given Documented by: Metoprolol Tartrate (Metoprolol Tartrate 25 Mg Tab) 25 mg PO Q6H [facility] Stop: 12/30/21 21:29 Last Admin: 12/01/21 03:12 Dose: 25 mg Documented by: Miscellaneous (Carbohydrates For Hypoglycemia ) 15 - 30 gm PO UD PRN PRN Reason: Hypoglycemia Protocol Stop: 12/30/21 20:42 Simvastatin (Simvastatin 80 Mg Tab) 80 mg PO PM [facility] Stop: 12/30/21 20:59 Last Admin: 11/30/21 23:43 Dose: 80 mg Documented by: (1) Acute CHF Heart failure type: unspecified Qualified Code(s): I50.9 - Heart failure, unspecified
[2021-12-01 07:13] LABS: BUN Creatinine Ratio 22.8 (10-20); Calcium 8.6 mg/dl (8.5-10.1); Creatinine Clr Calc Pharmacy 59.8 ml/min; Est GFR (African American) 58.8 ml/min; Est GFR (Non-African American) 50.7 ml/min; Potassium 4.7 mmol/L (3.5-5.1)
[2021-12-01 07:22] LABS: Partial Thromboplastin Ratio 1.2; Partial Thromboplastin Time 31.2 Seconds (21.0-31.0)
[2021-12-01] MEDS ORDERED: HEPARIN SOD (PORCINE) 1000 UNIT/ML IV ONE (07:40)
[2021-12-01] MEDS: ASPIRIN 81 MG ECTAB PO SCH (07:53)
[2021-12-01] MEDS: FUROSEMIDE 40 MG/4 ML VIAL IV SCH (07:53)
[2021-12-01] MEDS: INSULIN ASPART PER UNIT SC SCH ×5 (07:55→20:34)
--- NOTE | 2021-12-01 09:23 | XRay Report ---
XR chest 2V PA/lateral HISTORY: Congestive heart failure. Shortness of breath. Follow-up. COMPARISON: Chest 11/30/2021. FINDINGS: No pneumothorax. The heart remains enlarged. There are poststernotomy changes. There is mil d central pulmonary vascular congestion without overt edema. Trace bilateral pleural effusions have i mproved. Degenerative changes within the thoracic spine. IMPRESSION: Interval improvement in the mild pulmonary vascular congestion and trace bilateral pleural effusions. ACT 112: Negative or not required by law. Electronically signed by: Calderon Diop M.D. 12/01/2021 9:22 AM
--- NOTE | 2021-12-01 10:44 | Cardiology Consultation ---
Date of Consultation December 01, 2021 Assessment & Plan (1) Acute heart failure with reduced ejection fraction and diastolic dysfunction: (2) Paroxysmal atrial fibrillation: (3) CAD (coronary artery disease): (4) RBBB (right bundle branch block with left anterior fascicular block): 71-year-old patient admitted with acute decompensated heart failure with reduced ejection fraction. Echocardiogram demonstrating a marked decline in LV systolic function. Continue IV diuretic therapy. Metoprolol titrated to 25 mg every 6 to improve rate/rhythm control. Discontinue ARB in favor of Entresto twice daily. Consider addition of Aldactone during hospitalization as blood pressure allows. Monitor fluid balance, daily weight, GFR, and electrolytes. Long-term anticoagulation recommended due to new onset atrial fibrillation. Continue IV heparin. Transition to Eliquis at time of discharge. Repeat ECG in a.m. History of Present Illness Reason for Consultation: CHF, atrial fibrillation Requesting Physician: Dr. Arthur Attending Physician: Armando Arthur MD History of Present Illness 71-year-old patient present to the emergency department with 1 week of progressive dyspnea on exertion. Patient reports orthopnea without weight gain. Denies palpitations or chest discomfort. In the ER chest x-ray demonstrating pulmonary edema. ECG with evidence of sinus rhythm and short bursts of paroxysmal atrial flutter versus atrial tachycardia and frequent premature ventricular complexes. Initially treated with intravenous Cardizem infusion however discontinued in the ER. Ultimately given 5 mg of intravenous Lopressor and oral metoprolol tartrate 25 mg daily. His outpatient dose of Toprol-XL is 50 mg daily. This has been increased to 25 mg every 6. Overnight telemetry reveals episodes of atrial fibrillation/flutter as well as periods of sinus rhythm with frequent PACs/PVCs. Intravenous heparin infusing. Denies history of A. fib in the past. Currently, patient feeling better with more than 2 L diuresis. Orthopnea improved. Repeat x-ray demonstrating improvement of pulmonary vascular congestion. Preliminary review of bedside echocardiogram demonstrates severe LV systolic dysfunction with ejection fraction of 25-30%. Allergies Allergy/AdvReac Type Severity Reaction Status Date / Time lisinopril Allergy Intermediate DRY Verified 11/30/21 16:02 CONSISTENT COUGH Home Medications Medication Instructions Recorded Confirmed Type aspirin 81 mg tablet,delayed 81 mg PO DAILY 11/30/21 11/30/21 History release ezetimibe 10 mg tablet (Zetia) 10 mg PO PM 11/30/21 11/30/21 History metformin 500 mg tablet,extended 1,500 mg PO PM 11/30/21 11/30/21 History release 24 hr metoprolol succinate 50 mg 50 mg PO DAILY 11/30/21 11/30/21 History tablet,extended release 24 hr simvastatin 80 mg tablet 80 mg PO PM 11/30/21 11/30/21 History telmisartan 40 mg tablet 40 mg PO DAILY 11/30/21 11/30/21 History Patient History Medical History CAD (coronary artery disease) DM type 2 (diabetes mellitus, type 2) Dyslipidemia HTN (hypertension) Kidney stone on left side RBBB (right bundle branch block with left anterior fascicular block) Surgical History H/O neck surgery H/O shoulder surgery S/P CABG x 3 Family History Brother Diabetes Mother Diabetes Social History Smoking Status: Former smoker Second Hand Exposure: No; Do You Dip or Chew Tobacco: No; Tobacco Cessation Education Requested by Patient: No Hx Alcohol Use: No Hx Substance Use: No Preferred Language: Macedonian Communication Ability Comment: Not applicable Powderer Required: No Beliefs That Will Affect Care: Cheondoism Current Living Situation: Spouse Feels Safe at Home: Yes Assistive Devices: None Review of Systems Review of Systems: All systems reviewed & are unremarkable except as noted in Subjective Physical Exam Constitutional: well developed, well nourished and + ill appearing; no acute distress Respiratory: normal respiratory effort; no respiratory distress, no labored breathing and no retractions Auscultation: + rales (Bases bilateral); no crackles, no rhonchi and no wheezes Cardiovascular: Rate/Rhythm: regular rate and regular rhythm Heart Sounds: normal S1 and normal S2; no murmur Vessels: + JVD and radial pulses present; no carotid bruit Extremities: + edema (Trace to mild bilateral ankle edema) Gastrointestinal (Abdomen): Inspection/Auscultation: abdomen normal to inspection and normal bowel sounds; abdomen not distended Percussion/Palpation: abdomen soft; abdomen nontender, no guarding and abdomen not rigid Neurologic: CN's II-XI intact bilaterally and moves all extremities; no focal motor deficits Motor/Sensory: no tremor Psychiatric: A+Ox3, euthymic affect Results & Data ([facility]) Vital Signs (Past 12 Hours) Vital Signs Temp Pulse Pulse Resp BP Pulse Ox Pulse Ox 12/01/21 08:00 74 12/01/21 07:30 36.6 C 69 18 115/76 96 12/01/21 05:53 36.5 C 60 18 101/70 93 12/01/21 03:11 73 106/66 95 12/01/21 02:00 88 22 101/67 96 97 12/01/21 01:13 36.7 C 48 L 18 104/55 L 96 11/30/21 23:33 97 11/30/21 23:32 118 H 18 135/60 97
[2021-12-01 14:26] LABS: Partial Thromboplastin Ratio 1.3; Partial Thromboplastin Time 33.6 Seconds (21.0-31.0)
[2021-12-01] MEDS: HEPARIN SODIUM/DEXTROSE 25,000 UNITS/500 ML BAG IV SCH (15:19)
[2021-12-01] MEDS: VALSARTAN/SACUBITRIL 26/24MG TAB PO SCH (20:37)
[2021-12-01] MEDS: EZETIMIBE 10 MG TABLET PO SCH (20:37)
[2021-12-01] MEDS: SIMVASTATIN 80 MG TAB PO SCH (20:37)
[2021-12-01 22:47] LABS: Partial Thromboplastin Time 51.9 Seconds (21.0-31.0)
[2021-12-02] MEDS: METOPROLOL TARTRATE 25 MG TAB PO SCH ×4 (03:37→22:15)
--- NOTE | 2021-12-02 05:38 | Electrocardiogram Report ---
Test Reason : Blood Pressure : / mmHG Vent. Rate : 139 BPM Atrial Rate : 046 BPM P-R Int : 208 ms QRS Dur : 118 ms QT Int : 318 ms P-R-T Axes : 069 068 260 degrees QTc Int : 483 ms Sinus complexes with probable atrial runs and PVCs Right bundle branch block Abnormal ECG When compared with ECG of 03-JUN-2013 11:08, ST now depressed in Lateral leads Confirmed by Cameron Torres ([id number]) on 12/02/2021 5:38:31 AM Referred By: REFERRED SELF Confirmed By:Cameron Torres
--- NOTE | 2021-12-02 05:45 | Electrocardiogram Report ---
Test Reason : Blood Pressure : / mmHG Vent. Rate : 112 BPM Atrial Rate : 040 BPM P-R Int : 206 ms QRS Dur : 134 ms QT Int : 388 ms P-R-T Axes : 065 053 008 degrees QTc Int : 529 ms Sinus rhythm with Premature ventricular complexes and possible PACs with aberrant conduction Right bundle branch block Abnormal ECG When compared with ECG of 30-NOV-2021 15:40, No significant change Confirmed by Cameron Torres ([id number]) on 12/02/2021 5:44:47 AM Referred By: REFERRED SELF Confirmed By:Cameron Torres
[2021-12-02 05:52] LABS: Hemoglobin 12.6 g/dL (14.0-18.0); Mean Corpuscular Hemoglobin 30.5 pg (25-34); Mean Corpuscular Hgb Conc 32.3 g/dL (32-36); Mean Corpuscular Volume 94.4 fL (80-100); Mean Platelet Volume 10.3 fL (7.4-10.4); Platelet Count 214 K/uL (130-400); RDW Coefficient of Variation 13.9 % (11.5-14.5); Red Blood Count 4.13 M/uL (4.7-6.1); White Blood Count 6.56 K/uL (4.8-10.8)
--- NOTE | 2021-12-02 06:12 | Electrocardiogram Report ---
Test Reason : Blood Pressure : / mmHG Vent. Rate : 084 BPM Atrial Rate : 084 BPM P-R Int : 198 ms QRS Dur : 132 ms QT Int : 430 ms P-R-T Axes : 063 046 002 degrees QTc Int : 508 ms Sinus rhythm with occasional Premature ventricular complexes Possible Left atrial enlargement Right bundle branch block Nonspecific T wave abnormality Abnormal ECG When compared with ECG of 30-NOV-2021 17:03, Less ectopy is now present Confirmed by Cameron Torres ([id number]) on 12/02/2021 6:12:25 AM Referred By: REFERRED SELF Confirmed By:Cameron Torres
--- NOTE | 2021-12-02 06:27 | Electrocardiogram Report ---
Test Reason : Blood Pressure : / mmHG Vent. Rate : 107 BPM Atrial Rate : 084 BPM P-R Int : 196 ms QRS Dur : 126 ms QT Int : 316 ms P-R-T Axes : 074 054 127 degrees QTc Int : 422 ms Sinus rhythm with frequent Premature ventricular complexes Possible Left atrial enlargement Right bundle branch block Nonspecific T wave abnormality Abnormal ECG When compared with ECG of 01-DEC-2021 08:52, No significant change Confirmed by Cameron Torres ([id number]) on 12/02/2021 6:27:35 AM Referred By: REFERRED SELF Confirmed By:Cameron Torres
[2021-12-02 06:29] LABS: Creatinine Clr Calc Pharmacy 58.5 ml/min; Est GFR (African American) 57.3 ml/min; Est GFR (Non-African American) 49.4 ml/min; Magnesium 2.2 mg/dl (1.8-2.4); Phosphorus 3.5 mg/dl (2.5-4.9); Potassium 4.6 mmol/L (3.5-5.1)
[2021-12-02 06:37] LABS: Partial Thromboplastin Ratio 2.5; Partial Thromboplastin Time 65.1 Seconds (21.0-31.0)
[2021-12-02] MEDS: HEPARIN SODIUM/DEXTROSE 25,000 UNITS/500 ML BAG IV SCH ×2 (06:44→22:21)
[2021-12-02] MEDS: ASPIRIN 81 MG ECTAB PO SCH (08:03)
[2021-12-02] MEDS: VALSARTAN/SACUBITRIL 26/24MG TAB PO SCH ×2 (08:03→22:14)
[2021-12-02] MEDS: FUROSEMIDE 40 MG/4 ML VIAL IV SCH (08:08)
--- NOTE | 2021-12-02 08:22 | Electrocardiogram Report ---
Test Reason : Blood Pressure : / mmHG Vent. Rate : 084 BPM Atrial Rate : 084 BPM P-R Int : 198 ms QRS Dur : 132 ms QT Int : 430 ms P-R-T Axes : 063 046 002 degrees QTc Int : 508 ms Sinus rhythm with occasional Premature ventricular complexes Possible Left atrial enlargement Right bundle branch block Nonspecific T wave abnormality Abnormal ECG When compared with ECG of 30-NOV-2021 17:03, Less ectopy is now present Confirmed by Cameron Torres ([id number]) on 12/02/2021 6:12:25 AM Also confirmed by Cameron Torres ([id number]), city editor Danny Chung ([id number]) on 12/02/2021 8:21:51 AM Referred By: REFERRED SELF Confirmed By:Cameron Torres
[2021-12-02] MEDS: INSULIN ASPART PER UNIT SC SCH ×4 (08:40→22:25)
[2021-12-02] MEDS ORDERED: METOPROLOL TARTRATE 25 MG TAB PO ONE (10:34)
--- NOTE | 2021-12-02 10:42 | Cardiology Progress Note ---
Date of Service December 02, 2021 Assessment & Plan (1) Acute heart failure with reduced ejection fraction and diastolic dys function: (2) Paroxysmal atrial fibrillation: (3) CAD (coronary artery disease): (4) RBBB (right bundle branch block with left anterior fascicular block): Plan: 71-year-old patient admitted with acute decompensated heart failure with reduced ejection fraction. Echocardiogram demonstrating decline in LV systolic function. Patient will receive dose of IV Lasix this morning then hold IV diuretic therapy tomorrow pending review of a.m. labs. Titrate metoprolol to 37.5 mg every 6 hours. Monitor telemetry. ARB transition to low-dose Entresto. Consider addition of Aldactone pending clinical course and follow-up lab studies. Monitor fluid balance, daily weight, GFR, and electrolytes. Long-term anticoagulation recommended due to new onset atrial fibrillation. Continue IV heparin. Transition to Eliquis at time of discharge. Case management consultation requested to assess cost. Reduced ejection fraction and risk of sudden cardiac discussed. Recommend LifeVest placement at discharge. Patient reluctant to proceed at this time. He wishes to consider further and give me his decision within 24 hours. Admission and Anticipated Discharge Date Admission Date: November 30, 2021 Subjective Patient seen and examined at the bedside. Fluid balance -3 L. Creatinine relatively stable, although, trending upward slightly. Denies palpitations or chest discomfort. Dyspnea improved. Previously noted orthopnea has resolved. Lower extremity edema unchanged. Telemetry reveals sinus rhythm, frequent PACs, intermittent prolonged episodes of atrial fibrillation with heart rate in the low 100s. Review of Systems Review of Systems: All systems reviewed & are unremarkable except as noted in Subjective Physical Exam Constitutional: well developed, well nourished and + ill appearing; no acute distress Respiratory: normal respiratory effort; no respiratory distress, no labored breathing and no retractions Auscultation: + rales (Bases bilateral); no crackles, no rhonchi and no wheezes Cardiovascular: Rate/Rhythm: + tachycardic; not irregularly irregular Heart Sounds: normal S1 and normal S2; no murmur Vessels: + JVD and radial pulses present; no carotid bruit Extremities: + edema (Trace to mild bilateral ankle edema) Gastrointestinal (Abdomen): Inspection/Auscultation: abdomen normal to inspection and normal bowel sounds; abdomen not distended Percussion/Palpation: abdomen soft; abdomen nontender, no guarding and abdomen not rigid Neurologic: CN's II-XI intact bilaterally and moves all extremities; no focal motor deficits Motor/Sensory: no tremor Psychiatric: A+Ox3, euthymic affect Results & Data ([facility]) Vital Signs (Past 12 Hours) Vital Signs Temp Pulse Pulse Resp BP Pulse Ox Pulse Ox 12/02/21 08:14 37.0 C 75 18 103/58 L 94 12/02/21 07:20 112 H 12/02/21 04:30 36.7 C 12/02/21 03:35 36.7 C 79 20 117/60 96 12/02/21 01:53 95 12/01/21 23:43 37.2 C 78 16 97/59 L 95 12/01/21 23:42 108 H
--- NOTE | 2021-12-02 13:30 | Hospitalist Progress Note ---
Date of Service December 02, 2021 Assessment & Plan (1) Tachycardia: Plan: -Admitted to telemetry -Patient presenting by referral of [facility] for evaluation of tachycardia -In the ED, patient's heart rate is in the 130s. EKG on admission shows RBBB and frequent ectopy -Patient given diltiazem 10 mg IV bolus and started on a drip -Case was discussed with cardiology by ED provider. Recommends stopping diltiazem and giving metoprolol 5 mg IV x 1 and starting metoprolol tartrate 25 mg PO q6h - > increase to 37.5 Q6h (patient on metoprolol succinate 50 mg daily) -Given possible atrial fibrillation, patient was started on IV heparin drip, plan to start Eliquis on DC - Overnight telemetry reveals episodes of atrial fibrillation/flutter as well as periods of sinus rhythm with frequent PACs/PVCs. Echo obtained - LV is moderately dilated. Mild concentric LVH. EF 25 to 30%. Severe global hypokinesis of LV. RV systolic function is reduced. LA is moderately dilated. Moderate mitral regurg. Mild tricuspid regurg. Estimated systolic pulmonary pressure is 46 mmHg. Dilated inferior vena cava with reduced collapsibility with sniff indicates an elevated right atrial pressure of 15 mmHg. (2) RBBB (right bundle branch block with left anterior fascicular block): Plan: -History of chronic RBBB (3) Acute CHF: Plan: Acute decompensated heart failure with reduced ejection fraction -CXR shows pulmonary edema, patient reporting exertional shortness of breath, orthopnea, lower extremity edema, proBNP 4200 -? Tachycardia induced vs other -s/p Lasix 20 mg IV in the ED, give an additional Lasix 20 mg IV now -Continue Lasix 40 mg IV daily -Echo -shows significantly reduced LV syst. function, EF 25 to 30% -Continue diuresis with Lasix - Discontinue ARB in favor of Entresto twice daily. Consider addition of Aldactone during hospitalization as blood pressure allows. - monitor I/Os, daily weights (4) CAD (coronary artery disease): Plan: -No reports of chest pain -Continue ASA, statin, Zetia, beta-cassie (5) HTN (hypertension): Plan: -Hold telmisartan while titrating metoprolol -stopped ARB, and started Entresto (6) DM type 2 (diabetes mellitus, type 2): Plan: -Hgb A1c 7.7 07/2021 -Hold oral agents and utilize NovoLog per protocol while hospitalized (7) DVT prophylaxis: Plan: -On IV heparin drip Admission and Anticipated Discharge Date Admission Date: November 30, 2021 Subjective Patient seen in a follow-up of arrhythmia, CHF exacerbation Currently patient is sitting up in chair, in NAD Says he is feeling much better already, breathing better Reports he was able to ambulate in hallways, also able to lie flat in bed Patient's is at the bedside and updated Currently denies any chest pain or palpitations No fevers, chills, abdominal pain, nausea vomiting Review of Systems Review of Systems: All systems reviewed & are unremarkable except as noted in Subjective Physical Exam Physical Exam: Constitutional:L WD/WN, obese M in NAD Eyes: PERRL, EOMI ENMT: external ear and n ose normal, oropha rynx normal Respiratory: normal respiratory effort; no respir atory distress Au scultation: + min. basilar crackles, no wheezing, good air movement Cardiovascular:L Regular w/ ectopy , Extremities: + e russell (+1 edema BLE ) Gastrointestinal ( Abdomen): normal bowel sound s, soft, nontender , obese Musculoskeletal: extremities motor strength 5/5 Skin: no rashes, warm an d dry Neurologic: PERRL, EOMI, no fa ce palsy, no dysar thria, moves extre mities Psychiatric: A+Ox3, euthymic af fect Results & Data Results & Data ([facility]) Vital Signs (Past 12 Hours) Vital Signs Temp Pulse Pulse Resp BP Pulse Ox Pulse Ox 12/02/21 12:03 36.8 C 77 19 100/70 96 12/02/21 08:14 37.0 C 75 18 103/58 L 94 12/02/21 07:20 112 H 12/02/21 04:30 36.7 C 12/02/21 03:35 36.7 C 79 20 117/60 96 12/02/21 01:53 95 Laboratory Results 12/02/21 12/02/21 12/02/21 Range/Units 11:05 07:06 05:24 WBC (4.8-10.8) K/uL RBC (4.7-6.1) M/uL Hgb (14.0-18.0) g/dL Hct (42-52) % MCV (80-100) fL MCH (25-34) pg MCHC (32-36) g/dL RDW Std Deviation (36.4-46.3) fL RDW Coeff of Eleuterio (11.5-14.5) % Plt Count (130-400) K/uL MPV (7.4-10.4) fL APTT 65.1 H* (21.0-31.0) Seconds PTT Ratio 2.5 Sodium (136-145) mmol/L Potassium (3.5-5.1) mmol/L Chloride (98-107) mmol/L Carbon Dioxide (21-32) mmol/L Anion Gap (3-11) BUN (7-18) mg/dl Creatinine (0.6-1.4) mg/dl Est Cr Clr Drug Dosing ml/min Est GFR ( Amer) ml/min Est GFR (Non-Af Amer) ml/min BUN/Creatinine Ratio (10-20) Glucose (70-99) mg/dl POC Glucose 199 H 161 H (70-99) mg/dl Calcium (8.5-10.1) mg/dl Phosphorus (2.5-4.9) mg/dl Magnesium (1.8-2.4) mg/dl 12/02/21 12/02/21 12/01/21 Range/Units 05:24 05:24 20:50 WBC 6.56 (4.8-10.8) K/uL RBC 4.13 L (4.7-6.1) M/uL Hgb 12.6 L (14.0-18.0) g/dL Hct 39.0 L (42-52) % MCV 94.4 (80-100) fL MCH 30.5 (25-34) pg MCHC 32.3 (32-36) g/dL RDW Std Deviation 48.0 H (36.4-46.3) fL RDW Coeff of Eleuterio 13.9 (11.5-14.5) % Plt Count 214 (130-400) K/uL MPV 10.3 (7.4-10.4) fL APTT 51.9 H* (21.0-31.0) Seconds PTT Ratio 2.0 Sodium 138 (136-145) mmol/L Potassium 4.6 (3.5-5.1) mmol/L Chloride 106 (98-107) mmol/L Carbon Dioxide 26 (21-32) mmol/L Anion Gap 6.0 (3-11) BUN 27 H (7-18) mg/dl Creatinine 1.41 H (0.6-1.4) mg/dl Est Cr Clr Drug Dosing 58.5 ml/min Est GFR ( Amer) 57.3 ml/min Est GFR (Non-Af Amer) 49.4 ml/min BUN/Creatinine Ratio 19.0 (10-20) Glucose 151 H (70-99) mg/dl POC Glucose (70-99) mg/dl Calcium 9.0 (8.5-10.1) mg/dl Phosphorus 3.5 (2.5-4.9) mg/dl Magnesium 2.2 (1.8-2.4) mg/dl 12/01/21 12/01/21 12/01/21 Range/Units 20:12 16:19 13:58 WBC (4.8-10.8) K/uL RBC (4.7-6.1) M/uL Hgb (14.0-18.0) g/dL Hct (42-52) % MCV (80-100) fL MCH (25-34) pg MCHC (32-36) g/dL RDW Std Deviation (36.4-46.3) fL RDW Coeff of Eleuterio (11.5-14.5) % Plt Count (130-400) K/uL MPV (7.4-10.4) fL APTT 33.6 H (21.0-31.0) Seconds PTT Ratio 1.3 Sodium (136-145) mmol/L Potassium (3.5-5.1) mmol/L Chloride (98-107) mmol/L Carbon Dioxide (21-32) mmol/L Anion Gap (3-11) BUN (7-18) mg/dl Creatinine (0.6-1.4) mg/dl Est Cr Clr Drug Dosing ml/min Est GFR ( Amer) ml/min Est GFR (Non-Af Amer) ml/min BUN/Creatinine Ratio (10-20) Glucose (70-99) mg/dl POC Glucose 129 H 162 H (70-99) mg/dl Calcium (8.5-10.1) mg/dl Phosphorus (2.5-4.9) mg/dl Magnesium (1.8-2.4) mg/dl Medications Administered Current Inpatient Medications Acetaminophen (Acetaminophen 325 Mg Tab) 650 mg PO Q4H PRN PRN Reason: Pain or Fever Stop: 12/30/21 20:42 Aspirin (Aspirin 81 Mg Ectab) 81 mg PO DAILY [facility] Stop: 12/31/21 08:59 Last Admin: 12/02/21 08:03 Dose: 81 mg Documented by: Dextrose (Dextrose 50% 50 Ml Syringe) 25 - 50 ml IV UD PRN; Protocol PRN Reason: Hypoglycemia Protocol Stop: 12/30/21 20:42 Ezetimibe (Ezetimibe 10 Mg Tablet) 10 mg PO PM [facility] Stop: 12/30/21 20:59 Last Admin: 12/01/21 20:37 Dose: 10 mg Documented by: Furosemide (Furosemide 40 Mg/4 Ml Vial) 40 mg IV DAILY [facility] Stop: 12/31/21 08:59 Last Admin: 12/02/21 08:08 Dose: 40 mg Documented by: Glucagon (Glucagon For Inj 1 Mg Vial) 1 mg SQ UD PRN; Protocol PRN Reason: Hypoglycemia Protocol Stop: 12/30/21 20:42 Glucose (Glucose 10 Tabs/Tube) 4 - 8 tabs PO UD PRN; Protocol PRN Reason: Hypoglycemia Protocol Stop: 12/30/21 20:42 Glucose (Glucose 40% Gel 15 Gm Tube) 15 - 30 gm PO UD PRN; Protocol PRN Reason: Hypoglycemia Protocol Stop: 12/30/21 20:42 Heparin Sodium/Dextrose (Heparin Sodium/Dextrose) 25,000 units in 500 mls @ 31 mls/hr IV .Q16H8M [facility]; Protocol Stop: 12/31/21 14:59 Last Titration: 12/02/21 07:05 Dose: 1,550 units/hr, 31 mls/hr Documented by: Insulin Aspart (Insulin Aspart Per Unit) 0 units SC ACHS [facility] Stop: 12/30/21 20:59 Last Admin: 12/02/21 11:41 Dose: Not Given Documented by: Metoprolol Tartrate (Metoprolol Tartrate 25 Mg Tab) 37.5 mg PO Q6H [facility] Stop: 01/01/22 15:59 Miscellaneous (Carbohydrates For Hypoglycemia ) 15 - 30 gm PO UD PRN PRN Reason: Hypoglycemia Protocol Stop: 12/30/21 20:42 Sacubitril/Valsartan (Valsartan/Sacubitril 26/24mg Tab) 1 tab PO BID [facility] Stop: 12/31/21 20:59 Last Admin: 12/02/21 08:03 Dose: 1 tab Documented by: Simvastatin (Simvastatin 80 Mg Tab) 80 mg PO PM [facility] Stop: 12/30/21 20:59 Last Admin: 12/01/21 20:37 Dose: 80 mg Documented by: (1) Acute CHF Heart failure type: unspecified Qualified Code(s): I50.9 - Heart failure, unspecified
[2021-12-02] MEDS: SIMVASTATIN 80 MG TAB PO SCH (22:14)
[2021-12-02] MEDS: EZETIMIBE 10 MG TABLET PO SCH (22:14)
[2021-12-03] MEDS ORDERED: VALSARTAN/SACUBITRIL 26/24MG TAB PO SCH
[2021-12-03] MEDS: METOPROLOL TARTRATE 25 MG TAB PO SCH ×2 (04:24→07:49)
[2021-12-03 05:44] LABS: Hematocrit (blood only) 39.8 % (42-52); Hemoglobin 13.1 g/dL (14.0-18.0); Mean Corpuscular Hemoglobin 30.8 pg (25-34); Mean Corpuscular Hgb Conc 32.9 g/dL (32-36); Mean Corpuscular Volume 93.6 fL (80-100); Mean Platelet Volume 9.9 fL (7.4-10.4); Platelet Count 217 K/uL (130-400); RDW Coefficient of Variation 13.7 % (11.5-14.5); RDW Standard Deviation 47.3 fL (36.4-46.3); Red Blood Count 4.25 M/uL (4.7-6.1); White Blood Count 5.96 K/uL (4.8-10.8)
[2021-12-03 06:16] LABS: Partial Thromboplastin Ratio 2.4
[2021-12-03 06:29] LABS: Calcium 9.2 mg/dl (8.5-10.1); Creatinine Clr Calc Pharmacy 62.6 ml/min; Est GFR (African American) 62.6 ml/min; Magnesium 2.2 mg/dl (1.8-2.4); Potassium 4.8 mmol/L (3.5-5.1)
[2021-12-03 06:30] LABS: Phosphorus 3.6 mg/dl (2.5-4.9)
[2021-12-03] MEDS: VALSARTAN/SACUBITRIL 26/24MG TAB PO SCH (07:49)
[2021-12-03] MEDS: ASPIRIN 81 MG ECTAB PO SCH (07:49)
[2021-12-03] MEDS: INSULIN ASPART PER UNIT SC SCH ×3 (08:26→16:32)
--- NOTE | 2021-12-03 09:05 | Hospitalist Progress Note ---
Date of Service December 03, 2021 Assessment & Plan (1) Tachycardia: Plan: -Admitted to telemetry -Patient presenting by referral of [employer] for evaluation of tachycardia -In the ED, patient's heart rate is in the 130s. EKG on admission shows RBBB and frequent ectopy -Case was discussed with cardiology. Metoprolol was titrated while inpatient, (on metoprolol succinate 50 mg daily) Will discharge on metoprolol succinate 100 mg in the morning and 50 mg in the evening -Given possible atrial fibrillation, patient was started on IV heparin drip, now switched to Eliquis 5 mg BID -telemetry shows episodes of atrial fibrillation/flutter as well as periods of sinus rhythm with frequent PACs/PVCs. Echo obtained - LV is moderately dilated. Mild concentric LVH. EF 25 to 30%. Severe global hypokinesis of LV. RV systolic function is reduced. LA is moderately dilated. Moderate mitral regurg. Mild tricuspid regurg. Estimated systolic pulmonary pressure is 46 mmHg. Dilated inferior vena cava with reduced collapsibility with sniff indicates an elevated right atrial pressure of 15 mmHg. (2) RBBB (right bundle branch block with left anterior fascicular block): Plan: -History of chronic RBBB (3) Acute CHF: Plan: Acute decompensated heart failure with reduced ejection fraction -CXR shows pulmonary edema, patient reporting exertional shortness of breath, orthopnea, lower extremity edema, proBNP 4200 -? Tachycardia induced vs other -Echo -shows significantly reduced LV syst. function, EF 25 to 30% - treated with IV lasix - switch to PO lasix 40 mg daily - Discontinue ARB in favor of Entresto twice daily. Consider addition of Aldactone during hospitalization as blood pressure allows. - monitor I/Os, daily weights (4) CAD (coronary artery disease): Plan: -No reports of chest pain -Continue ASA, statin, Zetia, beta-cassie (5) HTN (hypertension): Plan: -Hold telmisartan while titrating metoprolol -stopped ARB, and started Entresto (6) DM type 2 (diabetes mellitus, type 2): Plan: -Hgb A1c 7.7 07/2021 -Hold oral agents and utilize NovoLog per protocol while hospitalized (7) DVT prophylaxis: Plan: -On IV heparin drip - now switched to Eliquis Admission and Anticipated Discharge Date Admission Date: November 30, 2021 Subjective Patient seen in a follow-up of arrhythmia, CHF exacerbation Currently patient is sitting up in chair, in NAD Says he is feeling much better already, breathing better Ambulates in hallways, also able to lie flat in bed Currently denies any chest pain or palpitations No fevers, chills, abdominal pain, nausea vomiting Review of Systems Review of Systems: All systems reviewed & are unremarkable except as noted in Subjective Physical Exam Physical Exam: Constitutional:L WD/WN, obese M in NAD Eyes: PERRL, EOMI ENMT: external ear and n ose normal, oropha rynx normal Respiratory: normal respiratory effort; no respir atory distress Au scultation: + min. basilar crackles, no wheezing, good air movement Cardiovascular:L Regular w/ ectopy , Extremities: + e russell (+1 edema BLE ) Gastrointestinal ( Abdomen): normal bowel sound s, soft, nontender , obese Musculoskeletal: extremities motor strength 5/5 Skin: no rashes, warm an d dry Neurologic: PERRL, EOMI, no fa ce palsy, no dysar thria, moves extre mities Psychiatric: A+Ox3, euthymic af fect Results & Data Results & Data ([facility]) Vital Signs (Past 12 Hours) Vital Signs Temp Pulse Pulse Resp BP Pulse Ox 12/03/21 07:52 36.5 C 89 16 116/62 12/03/21 03:33 36.8 C 60 16 108/70 97 12/03/21 02:15 78 12/02/21 23:05 36.8 C 73 18 111/75 94 Laboratory Results 12/03/21 12/03/21 12/03/21 Range/Units 07:12 05:32 05:32 WBC (4.8-10.8) K/uL RBC (4.7-6.1) M/uL Hgb (14.0-18.0) g/dL Hct (42-52) % MCV (80-100) fL MCH (25-34) pg MCHC (32-36) g/dL RDW Std Deviation (36.4-46.3) fL RDW Coeff of Eleuterio (11.5-14.5) % Plt Count (130-400) K/uL MPV (7.4-10.4) fL APTT 64.0 H* (21.0-31.0) Seconds PTT Ratio 2.4 Sodium 138 (136-145) mmol/L Potassium 4.8 (3.5-5.1) mmol/L Chloride 106 (98-107) mmol/L Carbon Dioxide 27 (21-32) mmol/L Anion Gap 5.0 (3-11) BUN 26 H (7-18) mg/dl Creatinine 1.31 (0.6-1.4) mg/dl Est Cr Clr Drug Dosing 62.6 ml/min Est GFR ( Amer) 62.6 ml/min Est GFR (Non-Af Amer) 54.0 ml/min BUN/Creatinine Ratio 20.0 (10-20) Glucose 153 H (70-99) mg/dl POC Glucose 156 H (70-99) mg/dl Calcium 9.2 (8.5-10.1) mg/dl Phosphorus 3.6 (2.5-4.9) mg/dl Magnesium 2.2 (1.8-2.4) mg/dl 12/03/21 12/02/21 12/02/21 Range/Units 05:32 19:53 16:16 WBC 5.96 (4.8-10.8) K/uL RBC 4.25 L (4.7-6.1) M/uL Hgb 13.1 L (14.0-18.0) g/dL Hct 39.8 L (42-52) % MCV 93.6 (80-100) fL MCH 30.8 (25-34) pg MCHC 32.9 (32-36) g/dL RDW Std Deviation 47.3 H (36.4-46.3) fL RDW Coeff of Eleuterio 13.7 (11.5-14.5) % Plt Count 217 (130-400) K/uL MPV 9.9 (7.4-10.4) fL APTT (21.0-31.0) Seconds PTT Ratio Sodium (136-145) mmol/L Potassium (3.5-5.1) mmol/L Chloride (98-107) mmol/L Carbon Dioxide (21-32) mmol/L Anion Gap (3-11) BUN (7-18) mg/dl Creatinine (0.6-1.4) mg/dl Est Cr Clr Drug Dosing ml/min Est GFR ( Amer) ml/min Est GFR (Non-Af Amer) ml/min BUN/Creatinine Ratio (10-20) Glucose (70-99) mg/dl POC Glucose 145 H 131 H (70-99) mg/dl Calcium (8.5-10.1) mg/dl Phosphorus (2.5-4.9) mg/dl Magnesium (1.8-2.4) mg/dl 12/02/21 Range/Units 11:05 WBC (4.8-10.8) K/uL RBC (4.7-6.1) M/uL Hgb (14.0-18.0) g/dL Hct (42-52) % MCV (80-100) fL MCH (25-34) pg MCHC (32-36) g/dL RDW Std Deviation (36.4-46.3) fL RDW Coeff of Eleuterio (11.5-14.5) % Plt Count (130-400) K/uL MPV (7.4-10.4) fL APTT (21.0-31.0) Seconds PTT Ratio Sodium (136-145) mmol/L Potassium (3.5-5.1) mmol/L Chloride (98-107) mmol/L Carbon Dioxide (21-32) mmol/L Anion Gap (3-11) BUN (7-18) mg/dl Creatinine (0.6-1.4) mg/dl Est Cr Clr Drug Dosing ml/min Est GFR ( Amer) ml/min Est GFR (Non-Af Amer) ml/min BUN/Creatinine Ratio (10-20) Glucose (70-99) mg/dl POC Glucose 199 H (70-99) mg/dl Calcium (8.5-10.1) mg/dl Phosphorus (2.5-4.9) mg/dl Magnesium (1.8-2.4) mg/dl Medications Administered Current Inpatient Medications Acetaminophen (Acetaminophen 325 Mg Tab) 650 mg PO Q4H PRN PRN Reason: Pain or Fever Stop: 12/30/21 20:42 Aspirin (Aspirin 81 Mg Ectab) 81 mg PO DAILY [facility] Stop: 12/31/21 08:59 Last Admin: 12/03/21 07:49 Dose: 81 mg Documented by: Dextrose (Dextrose 50% 50 Ml Syringe) 25 - 50 ml IV UD PRN; Protocol PRN Reason: Hypoglycemia Protocol Stop: 12/30/21 20:42 Ezetimibe (Ezetimibe 10 Mg Tablet) 10 mg PO PM [facility] Stop: 12/30/21 20:59 Last Admin: 12/02/21 22:14 Dose: 10 mg Documented by: Furosemide (Furosemide 40 Mg/4 Ml Vial) 40 mg IV DAILY [facility]INA Stop: 12/31/21 08:59 Last Admin: 12/02/21 08:08 Dose: 40 mg Documented by: Glucagon (Glucagon For Inj 1 Mg Vial) 1 mg SQ UD PRN; Protocol PRN Reason: Hypoglycemia Protocol Stop: 12/30/21 20:42 Glucose (Glucose 10 Tabs/Tube) 4 - 8 tabs PO UD PRN; Protocol PRN Reason: Hypoglycemia Protocol Stop: 12/30/21 20:42 Glucose (Glucose 40% Gel 15 Gm Tube) 15 - 30 gm PO UD PRN; Protocol PRN Reason: Hypoglycemia Protocol Stop: 12/30/21 20:42 Heparin Sodium/Dextrose (Heparin Sodium/Dextrose) 25,000 units in 500 mls @ 31 mls/hr IV .Q16H8M [facility]; Protocol Stop: 12/31/21 14:59 Last Titration: 12/03/21 07:07 Dose: 1,550 units/hr, 31 mls/hr Documented by: Insulin Aspart (Insulin Aspart Per Unit) 0 units SC ACHS [facility] Stop: 12/30/21 20:59 Last Admin: 12/03/21 08:26 Dose: Not Given Documented by: Metoprolol Tartrate (Metoprolol Tartrate 25 Mg Tab) 37.5 mg PO Q6H [facility] Stop: 01/01/22 15:59 Last Admin: 12/03/21 07:49 Dose: 37.5 mg Documented by: Miscellaneous (Carbohydrates For Hypoglycemia ) 15 - 30 gm PO UD PRN PRN Reason: Hypoglycemia Protocol Stop: 12/30/21 20:42 Sacubitril/Valsartan (Valsartan/Sacubitril 26/24mg Tab) 1 tab PO BID [facility] Stop: 12/31/21 20:59 Last Admin: 12/03/21 07:49 Dose: 1 tab Documented by: Simvastatin (Simvastatin 80 Mg Tab) 80 mg PO PM [facility] Stop: 12/30/21 20:59 Last Admin: 12/02/21 22:14 Dose: 80 mg Documented by: (1) Acute CHF Heart failure type: unspecified Qualified Code(s): I50.9 - Heart failure, unspecified
[2021-12-03] MEDS ORDERED: APIXABAN 5 MG TABLET PO SCH (09:45)
--- NOTE | 2021-12-03 09:56 | Cardiology Progress Note ---
Date of Service December 03, 2021 Assessment & Plan (1) Acute heart failure with reduced ejection fraction and diastolic dys function: (2) Paroxysmal atrial fibrillation: (3) CAD (coronary artery disease): (4) RBBB (right bundle branch block with left anterior fascicular block): Plan: Discontinue metoprolol tartrate. Transition to Toprol-XL 150 mg daily. He will take medication in divided doses, 100 mg in a.m., 50 mg in the evening. Discontinue IV heparin. Transition to Eliquis 5 mg twice daily. First dose now. Discontinue IV furosemide. Transition to oral furosemide 40 mg daily. Indication for LifeVest discussed. Risk of sudden cardiac reviewed. Patient declines at this time. Agreeable to medical therapy with titration of beta-cassie and addition of Entresto. Repeat basic metabolic panel in 1 week with close cardiology follow-up. Recommend further ischemic evaluation as an outpatient with Lexiscan nuclear stress testing. Admission and Anticipated Discharge Date Admission Date: November 30, 2021 Subjective Patient seen and examined at the bedside. Feeling better today. Fluid balance negative 1.8 L. Renal function remains stable. Heart rate improved with titration of metoprolol to 37.5 mg every 6 hours. Tolerating Entresto. Review of Systems Review of Systems: All systems reviewed & are unremarkable except as noted in Subjective Physical Exam Constitutional: well developed, well nourished and + ill appearing; no acute distress Respiratory: normal respiratory effort; no respiratory distress, no labored breathing and no retractions Auscultation: + rales (Bases bilateral); no crackles, no rhonchi and no wheezes Cardiovascular: Rate/Rhythm: regular rhythm (With ectopy) Heart Sounds: normal S1 and normal S2; no murmur Vessels: + JVD and radial pulses present; no carotid bruit Extremities: + edema (Trace to mild bilateral ankle edema) Gastrointestinal (Abdomen): Inspection/Auscultation: abdomen normal to inspection and normal bowel sounds; abdomen not distended Percussion/Palpation: abdomen soft; abdomen nontender, no guarding and abdomen not rigid Neurologic: CN's II-XI intact bilaterally and moves all extremities; no focal motor deficits Motor/Sensory: no tremor Psychiatric: A+Ox3, euthymic affect Results & Data ([facility]) Vital Signs (Past 12 Hours) Vital Signs Temp Pulse Pulse Resp BP Pulse Ox 12/03/21 09:34 68 12/03/21 07:52 36.5 C 89 16 116/62 12/03/21 03:33 36.8 C 60 16 108/70 97 12/03/21 02:15 78 12/02/21 23:05 36.8 C 73 18 111/75 94
[2021-12-03] MEDS ORDERED: METOPROLOL SUCC 50MG EXT REL TAB PO SCH ×2 (11:00→21:00)
--- NOTE | 2021-12-03 12:47 | Electrocardiogram Report ---
Test Reason : Blood Pressure : / mmHG Vent. Rate : 106 BPM Atrial Rate : 085 BPM P-R Int : 220 ms QRS Dur : 136 ms QT Int : 410 ms P-R-T Axes : 074 063 -10 degrees QTc Int : 544 ms Sinus rhythm with 1st degree A-V block with frequent , and consecutive Premature ventricular complexe s Left atrial enlargement Non-specific intra-ventricular conduction block Nonspecific T wave abnormality Abnormal ECG When compared with ECG of 02-DEC-2021 06:33, No significant change was found Confirmed by Deni Genao ([id number]) on 12/03/2021 12:46:59 PM Referred By: REFERRED SELF Confirmed By:Deni Genao
--- NOTE | 2021-12-03 14:57 | Discharge Summary ---
Date of Service December 03, 2021 Admission HPI Per Admitting Provider 71-year-old male with PMH DM type II, CAD s/p CABG x 3 in 1999, and other problems listed below who presents to the ED by [facility] for evaluation of tachycardia and shortness of breath. Patient notes worsening exertional shortness of breath over the past week or so. Also reports orthopnea. Patient has some lower extremity edema on exam however patient feels this is near baseline for him towards the end of the day. At [facility], patient was noted to be tachycardic and was referred to the ED for further evaluation. Patient denies chest pain and palpitations. Reports some mild lightheadedness when standing too quickly. Denies dizziness, diaphoresis, syncopal event. No abdominal pain, nausea, vomiting, diarrhea. Denies urinary symptoms. In the ED, patient was tachycardic in the 130s. EKG shows an unchanged RBBB however with frequent ectopy. CXR shows pulmonary edema. Labs are unremarkable. Patient was given diltiazem 10 mg bolus and started on a drip, Lasix 20 mg IV. Admission Exam Per Admitting Provider Constitutional: WD/WN, vitals as above Eyes: PERRL, conjunctivae normal, anicteric sclerae ENMT: external ear and nose normal, oropharynx normal Respiratory: normal respiratory effort; no respiratory distress Auscultation: + crackles (Left base) Cardiovascular: Rate/Rhythm: + tachycardic and + irregularly irregular Vessel s: normal peripheral pulses Extremities: + edema (+1 edema BLE) Gastrointestinal (Abdomen): normal bowel sounds, soft, nontender, no hepatosplenomegaly Musculoskeletal: no cyanosis or clubbing, extremities motor strength 5/5 Skin: no rashes, warm and dry Neurologic: PERRL, EOMI, accommodation nl, no face palsy, no dysarthria Psychiatric: A+Ox3, euthymic affect Principal Diagnosis Acute heart failure with reduced ejection fraction and diastolic dysfunction Paroxysmal atrial fibrillation: CAD (coronary artery disease): RBBB (right bundle branch block with left anterior fascicular block): Discharge Exam Constitutional: WD/WN, obese M in NAD Eyes: PERRL, EOMI ENMT: external ear and nose normal, oropharynx normal Respiratory: normal respiratory effort; no respiratory distress Auscultation: + min. basilar crackles, no wheezing, good air movement Cardiovascular: Regular w/ ectopy , Extremities: + edema (+1 edema BLE) Gastrointestinal (Abdomen): normal bowel sounds, soft, nontender, obese Musculoskeletal: extremities motor strength 5/5 Skin: no rashes, warm and dry B Neurologic: PERRL, EOMI, no face palsy, no dysarthria, moves extremities Psychiatric: A+Ox3, euthymic affect Discharge Data Allergies Allergy/AdvReac Type Severity Reaction Status Date / Time lisinopril Allergy Intermediate DRY Verified 11/30/21 16:02 CONSISTENT COUGH Consultations 11/30/21 17:44 ED Decision to Admit Stat 11/30/21 20:43 Consult Cardiology Routine Hospital Course (1) Tachycardia: -Admitted to telemetry -Patient presenting by referral of [facility] for evaluation of tac hycardia -In the ED, patient's heart rate is in the 130s. EKG on admission shows RBBB and frequent ectopy -Case was discussed with cardiology. Metoprolol was titrated while inpatient, (on metoprolol succinate 50 mg daily) Will discharge on metoprolol succinate 100 mg in the morning and 50 mg in the evening -Given possible atrial fibrillation, patient was started on IV heparin drip, now switched to Eliquis 5 mg BID -telemetry shows episodes of atrial fibrillation/flutter as well as periods of sinus rhythm with frequent PACs/PVCs. Echo obtained - LV is moderately dilated. Mild concentric LVH. EF 25 to 30%. Severe global hypokinesis of LV. RV systolic function is reduced. LA is moderately dilated. Moderate mitral regurg. Mild tricuspid regurg. Estimated systolic pulmonary pressure is 46 mmHg. Dilated inferior vena cava with reduced collapsibility with sniff indicates an elevated right atrial pressure of 15 mmHg. (2) RBBB (right bundle branch block with left anterior fascicular block): -History of chronic RBBB (3) Acute CHF: Acute decompensated heart failure with reduced ejection fraction -CXR shows pulmonary edema, patient reporting exertional shortness of breath, orthopnea, lower extremity edema, proBNP 4200 -? Tachycardia induced vs other -Echo -shows significantly reduced LV syst. function, EF 25 to 30% - treated with IV lasix - switch to PO lasix 40 mg daily - Discontinue ARB in favor of Entresto twice daily. - monitor I/Os, daily weights After discharge, patient needs BMP in 1 week. (4) CAD (coronary artery disease): -No reports of chest pain -Continue ASA, statin, Zetia, beta-cassie (5) HTN (hypertension): -Hold telmisartan while titrating metoprolol -stopped ARB, and started Entresto (6) DM type 2 (diabetes mellitus, type 2): -Hgb A1c 7.7 07/2021 -Hold oral agents and utilize NovoLog per protocol while hospitalized (7) DVT prophylaxis: -On IV heparin drip - now switched to Eliquis Total Time Total Time Spent Total Time Spent (In Minutes): 40 Discharge Plan Discharge Items Patient Disposition: Home - Self-Care Reason For Visit: CHF Discharge Diagnosis: Acute heart failure with reduced ejection fraction and diastolic dysfunction Paroxysmal atrial fibrillation: CAD (coronary artery disease): RBBB (right bundle branch block with left anterior fascicular block): Activity: Per Instructions section Non-emergency contact: Primary Care Provider and Livestock Judging Coach Call non-emergency contact if: you have any medication questions and your symptoms worsen Follow-up/Referrals: Anselmo Junior MD [Primary Care Provider] - (Date & Time 12/06/2021 10:40 AM Provider Anselmo Junior MD Department Family [facility] ) Diet: Heart Healthy and Low Sodium (2gm) Fluids: 1800ml (7 cups) Addtl Attending Provider Instructions: Follow up with your primary care doctor, and skein dyer. The appointment with your primary care doctor was scheduled for December 06. You will be contacted about the appointment with cardiology. You were started on some new medications. Start taking Eliquis 5 mg twice a day, this is a blood thinner. Your metoprolol was increased, take 100 mg of metoprolol succinate in the morning and 50 mg of metoprolol succinate in the evening. Take furosemide 40 mg daily, and Entresto twice a day as prescribed. You will need your blood work, BMP, repeated in 1 week. Addtl Cytotechnologist Provider Instructions: Call your Primary Care doctor if any of the following symptoms or problems start or get worse: * Shortness of breath or difficulty breathing * Wake up at night short of breath * Chest pain * Cough * Swelling of your hands, feet, or legs * More fatigued or tired with your normal activity * Palpitations - sudden fast heart beats WEIGHT * Weigh yourself every morning after using the bathroom. * Use the same scale. * Wear the same amount of clothing. * Write your weight down on a chart. * Call your Primary Care doctor if you gain more than 2-3 pounds in 1-2 days. MEDICATIONS * Use this discharge instruction sheet for medication instructions. * Take your medications at the time your doctor ordered. * Do not skip a dose of your medicines. * If you miss a dose of medicine, take it as soon as possible, but DO NOT DOUBLE A DOSE. * Read your medicine information when you get home. * Know all of the side effects of your medicine. If in doubt, ask your pharmacist * Call your Primary Care doctor's office if you have any side effects. * Be sure all of your doctors know what medicine and herbs you take (including cold, flu, and herbal medicine). Take the following with you to your follow-up doctor appointments: * Weight Chart * Medication List * List of questions Do not drink excessive alcohol, beer or wine. Pending Studies at Discharge: No Stand-Alone Forms: [facility], Smoking Cessation Medications and DC Order Prescriptions: New Eliquis 5 mg Tablet 5 mg PO BID Qty: 60 RF: 0 Entresto 24-26 mg Tablet 1 tab PO BID Qty: 60 RF: 0 furosemide 40 mg Tablet 40 mg PO QAM Qty: 30 RF: 0 metoprolol succinate 50 mg Tablet Extended Release 24 Hr 100 mg PO QAM Qty: 30 RF: 0 Continued simvastatin 80 mg Tablet 80 mg PO PM RF: 0 aspirin 81 mg Tablet,Delayed Release (Dr/Ec) 81 mg PO DAILY RF: 0 metformin 500 mg Tablet Extended Release 24 Hr 1,500 mg PO PM RF: 0 ezetimibe [Zetia] 10 mg Tablet 10 mg PO PM RF: 0 Changed metoprolol succinate 50 mg tablet extended release 24 hr 50 mg PO HS Qty: 0 RF: 0 Discontinued telmisartan 40 mg tablet 40 mg PO DAILY RF: 0 Discharge Orders: Discharge Order (Routine); Ordered 12/03/21 Ordered By: Armando Arthur Admission Data Admit Date/Time: 11/30/21 17:54 Attending Provider: Armando Arthur Admit Provider: Armando Arthur Primary Care Provider: Anselmo Junior Other Providers: Armando Arthur ; Darin Landin Other Interventions: Discharge Summary Assessment (RN) Last Done: 12/03/21 13:40
[2021-12-04] MEDS ORDERED: FUROSEMIDE 40 MG TAB PO SCH (09:00)
== END 2021-12-03 17:29 | disposition home or self-care (01) | DRG 291 ==
LOC: ED 15:18 → EDINP 17:54 → 2S 12-01 05:53

== ENCOUNTER 2024-04-24 11:31 | Inpatient (IN) ==
--- OUTSIDE RECORDS SUMMARY | 2024-04-24 11:36 | External Medical Summary ---
Author Name Unknown Address Unknown Organization [facility] [address] [place] [address] Laboratory Report Ordering Provider Test Date Status NURIS SWANSON 01/04/2024 11:05:56 Final Observation Date Value Abnormality Reference (Units ) Status BUN 01/04/2024 11:05:56 32 Above high normal 6-20 (mg/dL) Final Creatinine 01/04/2024 11:05:56 1.6 Above high normal 0.6-1.2 (mg/dL) Final Glomerular filtration rate/1.73 sq M.predicted [Volume Rate/Area] in Serum, Plasma or Blood by Creatinine-based formula (CKD-EPI) 01/04/2024 11:05:56 46 Below low normal >=60 (mL/min) Final eGFR is calculated based on the CKD-EPI 2020 equation SODIUM 01/04/2024 11:05:56 141 135-146 (m mol/L) Final Potassium 01/04/2024 11:05:56 5.4 Above high normal 3. 5-5.1 (mmol/L) Final Cl 01/04/2024 11:05:56 104 98-107 (mm ol/L) Final CO2 01/04/2024 11:05:56 24 22-32 (mmo l/L) Final Anion gap 01/04/2024 11:05:56 13 7-15 (mmol /L) Final Glucose 01/04/2024 11:05:56 159 Above high normal 70 -120 (mg/dL) Final Calcium 01/04/2024 11:05:56 9.4 8.4-10.2 ( mg/dL) Final Performing Location [facility] [address] [place] [address]
--- OUTSIDE RECORDS SUMMARY | 2024-04-24 11:36 | External Medical Summary | Summary of Care ---
Author Name Unknown Organization [facility] Address [address] [facility] [place] [address] Phone [phone] Care Team Providers Care Flat Drier Name Role Phone Anselmo Junior MD Primary Care Provider + Reason for Visit * Reason Comments Outpatient Testing Encounter Details Date Type Department Care Team (Late st Contact Info) Description 01/04/2024 11:10 AM EST Laboratory Laboratory, [facility] [address] [facility] [place] [id number] [facility] [address] [place] [address] DM type 2 nursing care encounter (HCC); Type 2 diabetes mellitus with hemoglobin A1c goal of less than 8.0% ([facility]); Worsening renal function Allergies Active Allergy Reactions Criticality Noted Date Comments Lisinopril 08/09/2010 Nagging cough documented as of this encounter (statuses as of 01/04/2024) Medications Medication Sig Dispensed Refills Start Date End Date Status ASPIRIN 81 MG OR TBECIndications:Coron winston atherosclerosis 1 TABLET DAILY 30 0 08/08/2003 Active ONETOUCH ULTRASOFT LANCETS MISCIndications:DM type 2, goal A1c below 7 Use twice daily for type ll diabetes testing 1 Box Dosing Unit 11 02/06/2016 Active OneTouch Ultra In Vitro Strip (Glucose Blood)Indications:Typ e 2 diabetes mellitus with hemoglobin A1c goal of less than 8.0% ([facility]) USE TO TEST TWO TIMES A DAY 200 Strip 3 06/11/2023 07/18/202 4 Active Pioglitazone HCl 30 MG Oral Tablet (Actos)Indications:Ty pe 2 diabetes mellitus with hemoglobin A1c goal of less than 8.0% (HCC) Take 1 Tablet by mouth in the morning. 100 Tablet 1 10/07/2023 Active metFORMIN HCl ER 500 MG Oral Tablet Extended Release 24 Hour (Glucophage XR)Indications:Type 2 diabetes mellitus with hemoglobin A1c goal of less than 8.0% (HCC) Take 1 Tablet by mouth in the morning. 100 Tablet 0 10/07/2023 Active Empagliflozin 10 MG Oral Tablet (Jardiance)Indication s:Type 2 diabetes mellitus with hemoglobin A1c goal of less than 8.0% (HCC) Take 1 Tablet by mouth in the morning. 100 Tablet 0 10/07/2023 Active Ezetimibe 10 MG Oral Tablet (Zetia)Indications:Dy slipidemia, goal LDL below 70 Take 1 Tablet by mouth in the morning. 100 Tablet 3 10/07/2023 Active Simvastatin 80 MG Oral Tablet (Zocor)Indications:Dy slipidemia, goal LDL below 70 Take 1 Tablet by mouth every evening. 100 Tablet 3 10/07/2023 Active Rivaroxaban 20 MG Oral Tablet (Xarelto)Indications: PAF (paroxysmal atrial fibrillation) ([facility]),Paroxysmal atrial tachycardia Take 1 Tablet by mouth daily with dinner. 100 Tablet 3 10/07/2023 Active Metoprolol Succinate ER 100 MG Oral Tablet Extended Release 24 Hour (toPROL XL)Indications:Essent ial hypertension with goal blood pressure less than 140/90 TAKE ONE TABLET BY MOUTH IN THE MORNING 90 Tablet 3 10/12/2023 4 Active Metoprolol Succinate ER 50 MG Oral Tablet Extended Release 24 Hour (toPROL XL)Indications:Paroxy smal atrial tachycardia,Chronic systolic heart failure (HCC) TAKE ONE TABLET BY MOUTH EVERY MORNING 90 Tablet 3 12/01/2023 5 Active Entresto 24-26 MG Oral Tablet (sacubitril-valsartan 24-26 mg per tab)Indications:Chron ic systolic heart failure (HCC),Essential hypertension with goal blood pressure less than 140/90,PAF (paroxysmal atrial fibrillation) (HCC) TAKE ONE TABLET BY MOUTH IN THE MORNING AND TAKE ONE TABLET BY MOUTH AT BEDTIME 180 Tablet 3 12/16/2023 5 Active documented as of this encounter (statuses as of 01/04/2024) Active Problems Problem Noted Date Diagnosed Date MGUS (monoclonal gammopathy of unknown significa nce) 10/23/2023 Overview: 10/15 kappa IgA Obesity, morbid (more than 1 00 lbs over ideal weight or BMI > 40) 03/11/2023 Hypertensive heart disease w ith chronic systolic congestive heart failure 03/11/2023 Coronary artery disease invo lving coronary bypass graft of alturas heart without angina pectoris 02/18/2022 Chronic systolic heart failure 12/06/2021 Paroxysmal atrial tachycardia 12/02/2021 Overview: 12/14 ER Dyslipidemia, goal LDL below 100 02/07/2021 Type 2 diabetes mellitus wit h hemoglobin A1c goal of less than 8.0% 07/20/2018 History of nonmelanoma skin cancer 01/19/2018 Overview: recurrent BCC upper back 01/04 Well adult exam 08/03/2017 Overview: 10/15 MGUS kappa IGA--refer heme, renal.. 11/14 per heme, ck CBC Q6mo, has 1% risk progression per year. 08/14 FOB WNL 01/14 Cardiac cath: Severe Circle Vessel Disease. CLEANING-LAD is widely patent with good distal run-off and retrilling the proximal-mid LAD and small diagonals. LAD also gives collaterals to RCA and LCx. SVG-OM and SVG-RPDA are occluded at the ostium. Lexiscan December 12, 2021Gated analysis reveals global hypokinesis of the left ventricle with an estimated left ventricular ejection fraction of 31%. Overall this pharmacologic nuclear stress test is consistent with a dilated cardiomyopathy and reveals mild to moderate ischemia of the lateral and inferior lateral myocardium. These findings are most consistent with a multivessel distribution. Summer 2015 colon-tubular adenoma aftab 5y 2016 @[facility]-daughter did AAA screen--was WNL per pt. (no actual records.) S/P CABG (coronary artery bypass graft) 04/15/20 05 documented as of this encounter (statuses as of 01/04/2024) Resolved Problems Problem Noted Date Diagnosed Date Resolved Date Heart failure 12/06/2021 09/08/2022 Obesity, morbid (more than 1 00 lbs over ideal weight or BMI > 40) 05/07/2010 06/11/2020 Overview: Per Obesity Protocol, #19 ICD-10 update of inactive term Malignant neoplasm of skin of trunk 01/03/2010 01/19/2018 Overview: ICD-10 update of inactive term Dyslipidemia, goal LDL below 70 11/01/2009 02/04/2018 Overview: Per Lipid Taxonomy. Type 2 diabetes mellitus wit h hemoglobin A1c goal of less than 7.0% 09/20/2009 02/04/2018 Overview: Per Diabetes Taxonomy. ICD-10 update of inactive term Type 2 diabetes mellitus wit h hemoglobin A1c goal of less than 7.0% 06/27/2005 09/20/2009 Overview: Per Diabetes Taxonomy. ICD-10 update of inactive term ADVANCE DIRECTIVE INFORMATION 04/15/2005 06/10/2020 Overview: No, Advance Directive brochure given to patient. Calculus of ureter 02/09/2003 0 CERVICAL DISC DISPLACMNT 05/15/1999 Coronary artery disease invo lving alturas coronary artery of alturas heart without angina pectoris 02/18/2022 PURE HYPERCHOLESTEROLEM 10/23 Overview: Per Lipid Taxonomy. documented as of this encounter (statuses as of 01/04/2024) Immunizations Name Administration Dates Next Due COVID-19 mRNA, LNP-s, No Pre serve, 2-Dose Series (Moderna) 10/10/2021,01/30/2021,01/02/2021 COVID-19, MRNA-LNP, 23-24, P F, 50 MCG/0.5 mL, 12 YRS AND ABOVE, IM (MODERNA-Spikevax) 09/23/2023 COVID-19, mRNA, LNP-s, PF, B ooster, 100mcg/0.5mg (Moderna) 07/14/2022 Covid-19, Mrna, Lnp-s, Pf, B ivalent, 50 Mcg, IM, 12 yrs and above (Moderna) 10/08/2022 HEP A - Hepatitis A (Adult > 18 yrs) 03/02/2003, 08/31/2002 Hepatitis B, 20+ yrs 12/11/1993,01/28/1993,01/17 Pneumococcal Conjugate Vacc, 13 Valent (Prevnar) 08/09/2015 Pneumococcal Polysaccharide PPV23 (Pneumovax) 02/09/2017,06/02/2006 Seasonal Influenza, Split, I IV3, With Preserve, Inj 08/07/2009 TDAP (age 10 and older)(Boostrix) 08/11/2019 TDAP (age 11 and older)(Adacel) 02/08/2009 documented as of this encounter Social History Tobacco Use Types Packs/Day Years Used Date Smoking Tobacco: Former Cigarettes 13 0 11/23/1965 - 11/23/1978 Smokeless Tobacco: Former Comments:smoked ages 17-30 Alcohol Use Standard Drinks/Week Comments No 0 (1 standard drink = 0.6 oz pur e alcohol) PHQ-2 Answer Date Recorded PHQ Adult Total Score 0 10/07/2023 Hunger Vital Sign Answer Date Recorded Within the past 12 months, y ou worried that your food would run out before you got the money to buy more. Never true 03/11/20 23 Within the past 12 months, t he food you bought just didn't last and you didn't have money to get more. Never true 03/11/2023 Sex and Gender Information Value Date Recorded Sex Assigned at Male 09/19/2022 8:48 AM EDT Gender Identity Male 09/19/2022 8:48 AM EDT Sexual Orientation Straight 09/19/2022 8: 48 AM EDT Job Start Date Occupation Industry Not on file Not on file Not on file documented as of this encounter Plan of Treatment Upcoming Encounters Date Type Department Care Team (Late st Contact Info) Description 01/14/2024 11:40 AM EST Office Visit Family [facility] [address] [place] [address] Anselmo Junior MD [address] [place] [address] 04/27/2024 11:00 AM EDT Laboratory Laboratory, [facility] [place] [address] [facility] [place] [id number] Noemi Pinos [address] [facility] [place] [address] 05/04/2024 12:30 PM EDT Office Visit Hematology/Oncology [facility] [place] [address] [facility] [place] [id number] Brittny Ford MD [address] [facility] [place] [address] 08/16/2024 3:00 PM EDT Office Visit Nephrology, [facility] [address] [facility] [place] [address] Lana Miranda MD [address] [facility] [place] [address] Pending Results Name Type Priority Associated Diagnoses Date /Time HEMOGLOBIN A1C Lab Routine DM type 2 nursing care encounter (HCC) Type 2 diabetes mellitus with hemoglobin A1c goal of less than 8.0% ([facility]) 01/04/2024 11:05 AM EST BASIC METABOLIC PANEL Lab Routine Type 2 diabetes mellitus with hemoglobin A1c goal of less than 8.0% ([facility]) 01/04/2024 11:05 AM EST ALBUMIN / CREATININE RATIO, URINE Lab Routine Type 2 diabetes mellitus with hemoglobin A1c goal of less than 8.0% ([facility]) 01/04/2024 11:08 AM EST Scheduled Procedures Name Priority Associated Diagnoses Date/Ti me COLONOSCOPY FLEXIBLE PROXIMAL DIAGNOSTIC Recall History of colon polyps Health Maintenance Due Date Last Done Comments Cologuard 1994 Sigmoidoscopy 1994 Zoster Vaccines (1 of 2) 1999 B-12 01/05/2024 01/05/2023, 10/2 , 12/10/2021, Additional history exists Diabetic Foot Exam 03/11/2024 03/11/2023, 0 02/18/2022, 02/07/2021, Additional history exists HbA1c 03/28/2024 09/28/2023, 12/24, 09/11/2022, Additional history exists Depression Screening 10/07/2024 10/07/2023 Albumin/Creatinine Ratio 10/21/2024 023, 01/05/2023, 02/06/2022, Additional history exists Fecal Occult Blood Test 10/21/2024 10/21/20 23, 08/19/2022, 08/19/2022 GFR 11/04/2024 11/04/2023, 09/24, 09/28/2023, Additional history exists Diabetic Eye Exam 11/05/2024 11/05/2023 (Do ne elsewhere), 10/12/2023, 10/12/2023, Additional history exists Colonoscopy 06/11/2026 06/11/2016, 06/17/2006 Colorectal Cancer Screening 06/11/2026 DTaP,Tdap,and Td Vaccines (3 - Td or Tdap) 08/11/2029 08/11/2019, 02/08/2009 COLONOSCOPY-EVERY 5 YRS AGES 18-100 Discontinued 06/11/2016, 06/17/2006 Pneumococcal Vaccine: 65+ Years Completed 02/09/2017, 08/09/2015, 06/02/2006 COVID-19 Vaccine Completed 09/23/2023, , 07/14/2022, Additional history exists GARDASIL-HPV IMMUNIZATION SERIES Aged Out No longer eligible based on patient's age to complete this topic MENINGOCOCCAL (MENACTRA/MENVEO) Aged Out No longer eligible based on patient's age to complete this topic documented as of this encounter Medical Devices Implanted Type Area Perioperative Manager Device Identifier Shelf Expiration Date Model / Serial / Lot Lens Intraoc 19.5 - [id number] - [id number] Implanted:Qty: 1 on 07/03/2020 by Rivera Merritt MD at OR [facility] Left: Eye [employer] 02/20/2025 [id number] / [id number] / Lens Intraoc 19.5 - [id number] - [id number] Implanted:Qty: 1 on 07/10/2020 by Rivera Merritt MD at OR [facility] Right: Eye [employer] 02/20/2025 [id number] / [id number] / [id number] documented as of this encounter Visit Diagnoses Diagnosis DM type 2 nursing care encounter (HCC) Type II or unspecified type diabetes mellitus without mention of complication, not stated as uncontrolled Type 2 diabetes mellitus with hemoglobin A1c goal of less than 8.0% (HCC) Worsening renal function documented in this encounter Advance Directives Documents on File Type Date Recorded 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
--- OUTSIDE RECORDS SUMMARY | 2024-04-24 11:36 | External Medical Summary | Summary of Care ---
Author Name Unknown Organization [facility] Address [address] [facility] [place] [address] Phone [phone] Care Team Providers Care Manager Of Tax Name Role Phone Anselmo Junior MD Primary Care Provider + Reason for Visit * Reason Comments Medication Refill Encounter Details Date Type Department Care Team (Late st Contact Info) Description 11/29/2023 Refill Pharmacy Call Center [phone] [place] [phone] David Faith MD [address] [place] [address] Paroxysmal atrial tachycardia; Chronic systolic heart failure (HCC) Allergies Active Allergy Reactions Criticality Noted Date Comments Lisinopril 08/09/2010 Nagging cough documented as of this encounter (statuses as of 11/30/2023) Medications Medication Sig Dispensed Refills Start Date End Date Status ASPIRIN 81 MG OR TBECIndications:Coron winston atherosclerosis 1 TABLET DAILY 30 0 08/08/2003 Active ONETOUCH ULTRASOFT LANCETS MISCIndications:DM type 2, goal A1c below 7 Use twice daily for type ll diabetes testing 1 Box Dosing Unit 11 02/06/2016 Active Metoprolol Succinate ER 50 MG Oral Tablet Extended Release 24 Hour (toPROL XL)Indications:Paroxy smal atrial tachycardia,Chronic systolic heart failure (HCC) TAKE ONE TABLET BY MOUTH EVERY MORNING 90 Tablet 3 12/30/2022 Active Additional Information Patient taking differently:50 mg OralQ, Reported on 01/12/2023 Sacubitril-Valsartan 24-26 MG Oral Tablet (Entresto) TAKE ONE TABLET BY MOUTH IN THE MORNING AND TAKE ONE TABLET BY MOUTH AT BEDTIME 180 Tablet 3 12/10/2022 4 Active OneTouch Ultra In Vitro Strip (Glucose Blood)Indications:Typ e 2 diabetes mellitus with hemoglobin A1c goal of less than 8.0% (HCC) USE TO TEST TWO TIMES A DAY 200 Strip 3 06/11/2023 4 Active Pioglitazone HCl 30 MG Oral Tablet (Actos)Indications:Ty pe 2 diabetes mellitus with hemoglobin A1c goal of less than 8.0% ([facility]) Take 1 Tablet by mouth in the morning. 100 Tablet 1 10/07/2023 Active metFORMIN HCl ER 500 MG Oral Tablet Extended Release 24 Hour (Glucophage XR)Indications:Type 2 diabetes mellitus with hemoglobin A1c goal of less than 8.0% ([facility]) Take 1 Tablet by mouth in the [...] Oral Tablet (Xarelto)Indications: PAF (paroxysmal atrial fibrillation) (HCC),Paroxysmal atrial tachycardia Take 1 Tablet by mouth daily with dinner. 100 Tablet 3 10/07/2023 Active Metoprolol Succinate ER 100 MG Oral Tablet Extended Release 24 Hour (toPROL XL)Indications:Essent ial hypertension with goal blood pressure less than 140/90 TAKE ONE TABLET BY MOUTH IN THE MORNING 90 Tablet 3 10/12/2023 4 Active documented as of this encounter (statuses as of 11/30/2023) Active Problems Problem Noted Date Diagnosed Date MGUS (monoclonal gammopathy of unknown significa nce) 10/23/2023 Overview: 10/15 kappa IgA Obesity, morbid (more than 1 00 lbs over ideal weight or BMI > 40) 03/11/2023 Hypertensive heart disease w ith chronic systolic congestive heart failure 03/11/2023 Coronary artery disease invo lving coronary bypass graft of [place] heart without angina pectoris 02/18/2022 Chronic systolic [...] 08/14 FOB WNL 01/14 Cardiac cath: Severe [place] Vessel Disease. CLEANING-LAD is widely patent with [...] Summer 2015 colon-tubular adenoma aftab 5y 2016 @[place]-daughter did AAA screen--was WNL per pt. (no actual records.) S/P CABG (coronary artery bypass graft) 04/15/20 05 documented as of this encounter (statuses as of 11/30/2023) Resolved Problems Problem Noted Date Diagnosed Date [...] DISPLACMNT 05/15/1999 Coronary artery disease invo lving [place] coronary artery of [place] heart without angina pectoris 02/18/2022 PURE HYPERCHOLESTEROLEM 10/23 Overview: Per Lipid Taxonomy. documented as of this encounter (statuses as of 11/30/2023) Immunizations Name Administration Dates Next Due COVID-19 [...] on file documented as of this encounter Miscellaneous Notes * Telephone Encounter - Jennifer Hein, [facility] - 11/30/2023 2:04 PM ESTRefused Prescriptions: Disp Refills Metoprolol Succinate ER 50 MG Oral Tablet *90 Tab*3 Sig: TAKE ONE TABLET BY MOUTH EVERY MORNINGRefused By: JENNIFER HEINNReason for Refusal: Too soonReason for Refusal Comment: sent 10/12/23 90 3 documented in this encounter Plan of Treatment Upcoming Encounters Date Type Department Care Team (Late st Contact Info) Description 01/14/2024 11:40 AM EST Office Visit Family Practice [facility] [address] [facility] [place] [address] Anselmo Junior MD [address] [place] [address] 04/27/2024 11:00 AM EDT Laboratory Laboratory, [facility] [place] [phone] [facility] [address] [facility] [place] [address] 05/04/2024 12:30 PM EDT Office Visit Hematology/Oncology [facility] [address] [facility] [place] [address] Brittny Ford MD [address] [facility] [place] [address] 08/16/2024 3:00 PM EDT Office Visit Nephrology, [facility] [address] [facility] [place] [address] Lana Miranda MD [address] [facility] [place] [address] Scheduled Procedures Name Priority Associated Diagnoses Date/Ti me COLONOSCOPY FLEXIBLE PROXIMAL DIAGNOSTIC Recall History of colon polyps Health Maintenance Due Date Last Done Comments Cologuard 1994 Sigmoidoscopy 1994 Zoster Vaccines (1 of 2) 1999 Diabetic Eye Exam 10/02/2023 10/02/2022, , 05/20/2021, Additional history exists B-12 01/05/2024 01/05/2023, 08/24, 12/10/2021, Additional history exists Diabetic Foot Exam 03/11/2024 03/11/2023, 0 02/18/2022, 02/07/2021, Additional history exists HbA1c 03/28/2024 09/28/2023, 12/24, 09/11/2022, Additional history exists Depression Screening 10/07/2024 10/07/2023 Albumin/Creatinine Ratio 10/21/2024 023, 01/05/2023, 02/06/2022, Additional history exists Fecal Occult Blood Test 10/21/2024 10/21/2023, 08/19 GFR 11/04/2024 11/04/2023, 09/24, 09/28/2023, Additional history exists Colonoscopy 06/11/2026 06/11/2016, 06/17/2006 [...] this encounter Medical Devices Implanted Type Area Metal Precision Machine Assembler Device Identifier Shelf Expiration Date Model / Serial / Lot Lens Intraoc 19.5 - [id number] - [id number] Implanted:Qty: 1 on 07/03/2020 by Rivera Merritt MD at [facility] Left: Eye [employer] 02/20/2025 [id number] / [id number] / Lens Intraoc 19.5 - [id number] - [id number] Implanted:Qty: 1 on 07/10/2020 by Rivera Merritt MD at [facility] Right: Eye [employer] 02/20/2025 [id number] / [id number] / [id number] documented as of this encounter Visit Diagnoses Diagnosis Paroxysmal atrial tachycardia Paroxysmal supraventricular tachycardia Chronic systolic heart failure (HCC) Chronic systolic heart failure documented in this encounter Advance Directives Documents on File Type Date Recorded Patient Mac Developer Expl anation Advance Directives and Living Will 07/24/2005 LIVING WILL Power of Director Of Teacher Education 07/24/2005 [facility] P[facility] [employer] Care Teams Manager Of Tax Relationship Specialty Start Date End Date Anselmo Junior MD [address] [place] [address] PCP - General Family Medicine 08/03/17 documented as of this encounter
--- OUTSIDE RECORDS SUMMARY | 2024-04-24 11:36 | External Medical Summary | Summary of Care ---
Author Name Unknown Organization [facility] Address [address] [facility] [place] [address] Phone [phone] Care Team Providers Care Marble Installer Name Role Phone Anselmo Junior MD Primary Care Provider + Reason for Visit * Reason Comments Medication Refill Encounter Details Date Type Department Care Team (Late st Contact Info) Description 11/30/2023 Refill Pharmacy Call Center [phone] [place] [phone] Anselmo Junior MD [address] [place] [address] Paroxysmal atrial tachycardia; Chronic systolic heart failure (HCC) Allergies Active Allergy Reactions Criticality Noted Date Comments Lisinopril 08/09/2010 Nagging cough documented as of this encounter (statuses as of 12/01/2023) Medications Medication Sig Dispensed Refills Start Date End Date Status ASPIRIN 81 MG OR TBECIndications:Cristino nary atherosclerosis 1 TABLET DAILY 30 0 08/08/2003 Active ONETOUCH ULTRASOFT LANCETS MISCIndications:DM type 2, goal A1c below 7 Use twice daily for type ll diabetes testing 1 Box Dosing Unit 11 02/06/2016 Active Sacubitril-Valsartan 24-26 MG Oral Tablet (Entresto) TAKE ONE TABLET BY MOUTH TWICE DAILY 60 Tablet 0 12/03/2021 Active Sacubitril-Valsartan 24-26 MG Oral Tablet (Entresto) TAKE ONE TABLET BY MOUTH IN THE MORNING AND TAKE ONE TABLET BY MOUTH AT BEDTIME 180 Tablet 3 12/10/2022 4 Active OneTouch Ultra In Vitro Strip (Glucose Blood)Indications:Ty pe 2 diabetes mellitus with hemoglobin A1c goal of less than 8.0% (HCC) USE TO TEST TWO TIMES A DAY 200 Strip 3 06/11/2023 4 Active Pioglitazone HCl 30 MG Oral Tablet (Actos)Indications:T ype 2 diabetes mellitus with hemoglobin A1c goal [...] 10/07/2023 Active Empagliflozin 10 MG Oral Tablet (Jardiance)Indicatio ns:Type 2 diabetes mellitus with hemoglobin A1c goal of less than 8.0% (HCC) Take 1 Tablet by mouth in the morning. 100 Tablet 0 10/07/2023 Active Ezetimibe 10 MG Oral Tablet (Zetia)Indications:D yslipidemia, goal LDL below 70 Take 1 Tablet by mouth in the morning. 100 Tablet 3 10/07/2023 Active Simvastatin 80 MG Oral Tablet (Zocor)Indications:D yslipidemia, goal LDL below 70 Take 1 Tablet by mouth every evening. 100 Tablet 3 10/07/2023 Active Rivaroxaban 20 MG Oral Tablet (Xarelto)Indications :PAF (paroxysmal atrial fibrillation) ([facility]),Paroxysmal atrial tachycardia Take 1 Tablet by mouth daily with dinner. 100 Tablet 3 10/07/2023 Active Metoprolol Succinate ER 100 MG Oral Tablet Extended Release 24 Hour (toPROL XL)Indications:Essen tial hypertension with goal blood pressure less than 140/90 TAKE ONE TABLET BY MOUTH IN THE MORNING 90 Tablet 3 10/12/2023 4 Active Metoprolol Succinate ER 50 MG Oral Tablet Extended Release 24 Hour (toPROL XL)Indications:Parox ysmal atrial tachycardia,Chronic systolic heart failure (HCC) TAKE ONE TABLET BY MOUTH EVERY MORNING 90 Tablet 3 12/01/2023 5 Active Metoprolol Succinate ER 50 MG Oral Tablet Extended Release 24 Hour (toPROL XL)Indications:Parox ysmal atrial tachycardia,Chronic systolic heart failure (HCC) TAKE ONE TABLET BY MOUTH EVERY MORNING 90 Tablet 3 12/30/2022 4 Discontinue d(Refill) documented as of this encounter (statuses as of 12/01/2023) Active Problems Problem Noted Date Diagnosed Date MGUS (monoclonal gammopathy of unknown significa nce) 10/23/2023 Overview: 10/15 kappa IgA Obesity, morbid (more than 1 00 lbs over ideal weight or BMI > 40) 03/11/2023 Hypertensive heart disease w ith chronic systolic congestive heart failure 03/11/2023 Coronary artery disease invo lving coronary bypass graft of [place] heart without angina pectoris 02/18/2022 Chronic systolic [...] 08/14 FOB WNL 01/14 Cardiac cath: Severe [place] Vessel Disease. CLEANING-LAD is widely patent with [...] Summer 2015 colon-tubular adenoma aftab 5y 2016 @[place]-daughter did AAA screen--was WNL per pt. (no actual records.) S/P CABG (coronary artery bypass graft) 04/15/20 05 documented as of this encounter (statuses as of 12/01/2023) Resolved Problems Problem Noted Date Diagnosed Date [...] DISPLACMNT 05/15/1999 Coronary artery disease invo lving [place] coronary artery of [place] heart without angina pectoris 02/18/2022 PURE HYPERCHOLESTEROLEM 10/23 Overview: Per Lipid Taxonomy. documented as of this encounter (statuses as of 12/01/2023) Immunizations Name Administration Dates Next Due COVID-19 [...] encounter Miscellaneous Notes * Telephone Encounter - Karri Faith MD - 12/01/2023 11:36 AM ESTSigned Prescriptions: Disp Refills Metoprolol Succinate ER 50 MG Oral Tablet *90 Tab*3 Sig: TAKE ONE TABLET BY MOUTH EVERY MORNING Authorizing Provider: KARRI FAITH * Telephone Encounter - Anselmo Junior MD - 11/30/2023 11:04 PM EST Pending Prescriptions: Disp Refills Metoprolol Succinate ER 50 MG Oral Tablet *90 Tab*3 Sig: TAKE ONE TABLET BY MOUTH EVERY MORNING * Telephone Encounter - Anselmo Junior MD - 11/30/2023 11:04 PM EST Managed by Dr. Faith. documented in this encounter Plan of Treatment Upcoming Encounters Date Type Department Care Team (Late st Contact Info) Description 01/14/2024 11:40 AM EST Office Visit Family Practice [facility] [address] [place] [address] Anselmo Junior MD [address] [place] [address] 04/27/2024 11:00 AM EDT Laboratory Laboratory, [facility] [address] [place] [phone] Noemi Pino [address] [place] [address] 05/04/2024 12:30 PM EDT Office Visit Hematology/Oncology [facility] [place] [address] [facility] [place], [place] [address] Brittny Ford MD [address] [facility] [place] [address] 08/16/2024 3:00 PM EDT Office Visit Nephrology, [facility] [address] [facility] [address] [place], [place] [address] Lana Miranda MD [address] [facility] [address] [place], [place] [address] Scheduled Procedures Name Priority Associated Diagnoses Date/Ti [...] this encounter Medical Devices Implanted Type Area Fur Stylist Device Identifier Shelf Expiration Date Model / Serial / Lot Lens Intraoc 19.5 - [id number] - [id number] Implanted:Qty: 1 on 07/03/2020 by Rivera Merritt MD at [facility] Left: Eye [employer] 02/20/2025 [id number] / [id number] / Lens Intraoc 19.5 - [id number] - [id number] Implanted:Qty: 1 on 07/10/2020 by Rivera Merritt MD at [facility] Right: Eye [employer]OM[employer] 02/20/2025 [id number] / [id number] / [id number] documented as of this encounter Visit Diagnoses Diagnosis Paroxysmal atrial tachycardia Paroxysmal supraventricular tachycardia Chronic systolic heart failure (HCC) Chronic systolic heart failure documented in this encounter Advance Directives Documents on File Type Date Recorded 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
--- OUTSIDE RECORDS SUMMARY | 2024-04-24 11:36 | External Medical Summary | Summary of Care ---
Author Name Unknown Organization [facility] Address [address] [facility] [place] [address] Phone [phone] Care Team Providers Care Near Eastern Archaeology Lecturer Name Role Phone Anselmo Lawler MD Primary Care Provider + Reason for Visit * Reason Comments Chronic Kidney Disease (CKD) Encounter Details Date Type Department Care Team (Late st Contact Info) Description 01/25/2024 3:40 PM EST Office Visit Nephrology, [facility] [address] [facility] [place] [address] Lana Miranda MD [address] [facility] [place] [address] Stage 3 chronic kidney disease, unspecified whether stage 3a or 3b CKD (HCC)*; Worsening renal function; HTN, goal below 130/80; MGUS (monoclonal gammopathy of unknown significance); Chronic heart failure, unspecified heart failure type (HCC) Allergies Active Allergy Reactions Criticality Noted Date Comments Lisinopril 08/09/2010 Nagging cough documented as of this encounter (statuses as of 02/09/2024) Medications Medication Sig Dispensed Refills Start Date [...] hemoglobin A1c goal of less than 8.0% ([facility]) USE TO TEST TWO TIMES A DAY 200 Strip 3 06/11/2023 4 Active metFORMIN HCl ER 500 MG Oral Tablet Extended Release 24 Hour (Glucophage XR)Indications:Type 2 diabetes mellitus with hemoglobin A1c goal of less than 8.0% ([facility]) Take 1 Tablet by mouth [...] Oral Tablet (Xarelto)Indications: PAF (paroxysmal atrial fibrillation) ([facility]),Paroxysmal atrial tachycardia Take 1 Tablet [...] MORNING 90 Tablet 3 12/01/2023 5 Active Additional Information Patient taking differently: 50 mg HS, Reported on 01/25/2024 Entresto 24-26 MG Oral Tablet (sacubitril-valsartan 24-26 mg per tab)Indications:Chron ic systolic heart failure (HCC),Essential hypertension with goal blood pressure less than 140/90,PAF (paroxysmal atrial fibrillation) ([facility]) TAKE ONE TABLET BY MOUTH IN THE MORNING AND TAKE ONE TABLET BY MOUTH AT BEDTIME 180 Tablet 3 12/16/2023 5 Active Furosemide 40 MG Oral Tablet (Lasix) Take 1 Tablet by mouth as needed for Other (edema, sob). TAKES THREE TIMES A WEEK 0 Active Pioglitazone HCl 30 MG Oral Tablet (Actos)Indications:Ty pe 2 diabetes mellitus with hemoglobin A1c goal of less than 8.0% ([facility]) Take 1 Tablet by mouth in the morning. 100 Tablet 3 01/14/2024 Active Empagliflozin 10 MG Oral Tablet (Jardiance)Indication s:Type 2 diabetes mellitus with hemoglobin A1c goal of less than 8.0% (HCC) Take 1 Tablet by mouth in the morning. 100 Tablet 3 01/14/2024 Active documented as of this encounter (statuses as of 02/09/2024) Active Problems Problem Noted Date Diagnosed Date Chronic kidney disease, stage 3a 02/01/2024 Overview: Per CKD protocol Diabetes mellitus due to und erlying condition with stage 3a chronic kidney disease, with long-term current use of insulin 01/14/2024 MGUS (monoclonal gammopathy of unknown significa nce) 10/23/2023 Overview: 10/15 kappa IgA Obesity, morbid (more than 1 00 lbs over ideal weight or BMI > 40) 03/11/2023 Hypertensive heart disease w ith chronic systolic congestive heart failure 03/11/2023 Coronary artery disease invo lving coronary bypass graft of [place] heart without angina pectoris 02/18/2022 Chronic systolic [...] 08/14 FOB WNL 01/14 Cardiac cath: Severe [place] Vessel Disease. CLEANING-LAD is widely patent with [...] Summer 2015 colon-tubular adenoma aftab 5y 2016 @Dot-daughter did AAA screen--was WNL per pt. (no actual records.) S/P CABG (coronary artery bypass graft) 04/15/20 05 documented as of this encounter (statuses as of 02/09/2024) Resolved Problems Problem Noted Date Diagnosed Date [...] DISPLACMNT 05/15/1999 Coronary artery disease invo lving [place] coronary artery of [place] heart without angina pectoris 02/18/2022 PURE HYPERCHOLESTEROLEM 10/23 Overview: Per Lipid Taxonomy. documented as of this encounter (statuses as of 02/09/2024) Immunizations Name Administration Dates Next Due COVID-19 [...] 0 11/23/1965 - 11/23/1978 Smokeless Tobacco: Former Tobacco Cessation:Counseling Given: Not Answered Comments:smoked ages [age] Alcohol Use Standard Drinks/Week [...] on file documented as of this encounter Last Filed Vital Signs Vital Sign Reading Time Taken Comments Blood Pressure 114/68 01/25/2024 3:38 PM EST Pulse 76 01/25/2024 3:38 PM EST Temperature 36.4 C (97.6 F) 01/25/2024 3:38 PM ES T Respiratory Rate 18 01/25/2024 3:38 PM EST Oxygen Saturation 94% 01/25/2024 3:38 PM EST Inhaled Oxygen Concentration - - Weight 113.4 kg (250 lb) 01/25/2024 3:38 PM EST Height - - Body Mass Index 39.16 11/03/2023 10:00 AM EST documented in this encounter Patient Instructions * Patient Instructions* Lana Miranda MD - 01/25/2024 4:13 PM EST -no medication changes -avoid medicines like aleve, advil, ibuprofen, aspirin more than 81 mg daily and other NSAIDS whichare not good for kidney patients. Take only tylenol (acetaminophen) up to 2000 mg daily as needed for pain or as directed by your primary care provider. -get back into activity routine -eat a low sodium diet (less than 2000 mg or 1/2 tsp) daily -when you get labs for hematology in spring 2023, check my labs as well documented in this encounter Progress Notes * Lana Miranda MD - 01/25/2024 3:46 PM EST NEPHROLOGY CLINIC [place] [address] 01/25/2024, 3:46 PM Patient Name: Emerson Barraza BACKGROUND: 73 year old male presents for close in follow-up of rapidly worsening renal function inthe setting of recently diagnosed MGUS/IgA kappa gammopathy. PMH includes DM2 since at least 1999, HTN, CAD s/p CABG 1999, combined chronic systolic/diastolic HF w/ EF improved w/ GDMT to 50%; paroxysmal atrial tachycardia, chronic RBBB, Class 2 obesity. November 2022 had bout of a fib; upped metoprolol also w/ IgA kappa MGUS. Home blood pressure checks: upper arm cuff; follows w/ PCP and cardiology on this and checked for accuracy History of stones: 1982 most recently Family history of CKD or ESRD: N NSAID use: yes 09/2023 x few weeks daily Herbals/supplements: N Last hospital stay: ER visit August for SI pain [facility] Had R SI joint out of place in fall >> took 3X for chiropractor to get him through this; had ER visit w/ uncontrolled pain and ended up on ibuprofen x a few weeks carefully as a bridge. Was on ibuprofen w/ blood tests early last month. Saw cardiology late Sep 2023 Dr Faith > reported recent hip pain needing injection/ steroids/ ibuprofen course; no vol OL evident on eval and possible diuretic reduction contemplated > lasix 40mg daily x 5 days weekly and so now down to 3X weekly lasix. In a day drinks >3 X 8 glasses water ; also has coffee, milk, grape juice, lemonade. TODAY 01/25/2024: Saw hematology > MGUS for q 6 mo fu/. Started jardiance February 2023. Recent A1c abit better. Normally goes to [employer] but has not renewed membership/paperwork and normally eats 1 meal daily and lately 2 meals. has new mattress helping back recently. Working on drinking more water but not hitting target all the time. Walked stairs to 2econd floor in clinic, not elevator REVIEW OF SYSTEMS: No F/C, unintended wt gain frequently in winter w/ less activity, energy level and appetite acceptable No palpitations, angina, orthopnea, LE edema No cough, wheeze, or dyspnea No N/V/D/C/abd pain No dysuria, hematuria, nocturia >2X; no new or worrisome voiding symptoms No focal joint/muscle aches apart from back No inappropriate bleeding or bruising No tremor, seizures, focal or global weakness or paresthesias No orthostatic or presyncopal symptoms unless he changes position quickly; no falls Current Outpatient Medications Medication Sig Dispense Refill ASPIRIN 81 MG OR TBEC 1 TABLET DAILY 30 0 metFORMIN HCl ER 500 MG Oral Tablet Extended Release 24 Hour (Glucophage XR) Take 1 Tablet by mouthin the morning. 100 Tablet 0 Ezetimibe 10 MG Oral Tablet (Zetia) Take 1 Tablet by mouth in the morning. 100 Tablet 3 Simvastatin 80 MG Oral Tablet (Zocor) Take 1 Tablet by mouth every evening. 100 Tablet 3 Rivaroxaban 20 MG Oral Tablet (Xarelto) Take 1 Tablet by mouth daily with dinner. 100 Tablet 3 Metoprolol Succinate ER 100 MG Oral Tablet Extended Release 24 Hour (toPROL XL) TAKE ONE TABLET BY MOUTH IN THE MORNING 90 Tablet 3 Entresto 24-26 MG Oral Tablet (sacubitril-valsartan 24-26 mg per tab) TAKE ONE TABLET BY MOUTH IN THE MORNING AND TAKE ONE TABLET BY MOUTH AT BEDTIME 180 Tablet 3 Furosemide 40 MG Oral Tablet (Lasix) Take 1 Tablet by mouth as needed for Other (edema, sob). TAKESTHREE TIMES A WEEK Pioglitazone HCl 30 MG Oral Tablet (Actos) Take 1 Tablet by mouth in the morning. 100 Tablet 3 Empagliflozin 10 MG Oral Tablet (Jardiance) Take 1 Tablet by mouth in the morning. 100 Tablet 3 ONETOUCH ULTRASOFT LANCETS [facility] Use twice daily for type ll diabetes testing 1 Box Dosing Unit 11 OneTouch Ultra In Vitro Strip (Glucose Blood) USE TO TEST TWO TIMES A DAY 200 Strip 3 Metoprolol Succinate ER 50 MG Oral Tablet Extended Release 24 Hour (toPROL XL) TAKE ONE TABLET BY MOUTH EVERY MORNING (Patient taking differently: 1 Tablet at bedtime.) 90 Tablet 3 No current facility-administered medications for this visit. Review of patient's allergies indicates: Allergen Reactions Lisinopril Nagging cough PHYSICAL EXAMINATION: BP Readings from Last 6 Encounters: 01/25/24 114/68 01/14/24 110/60 11/03/23 117/76 11/02/23 130/67 10/21/23 122/74 10/07/23 120/66 Wt Readings from Last 6 Encounters: 01/25/24 113.4 kg (250 lb) 01/14/24 113.5 kg (250 lb 5 oz) 11/03/23 109.2 kg (240 lb 12.8 oz) 11/02/23 110.9 kg (244 lb 8 oz) 10/21/23 107.5 kg (237 lb) 10/07/23 108.6 kg (239 lb 8 oz) Pulse Readings from Last 6 Encounters: 01/25/24 76 01/14/24 66 11/03/23 81 11/02/23 64 10/21/23 72 10/07/23 71 NAD, oriented x 3 Normocephalic, atraumatic, eomi nonicteric sclerae MMM Supple neck RRR w/o m/g/r; no edema CTAB w/ reasonable air mvt NT abd, +BS, soft No cyanosis or clubbing No rash No tremor, focal or global weakness; fluent speech LABS: Recent Labs Units 01/04/24 1105 11/04/23 1057 10/21/23 0914 09/28/23 1155 SODIUM - [facility] mmol/L 141 138 138 143 POTASSIUM - [facility] mmol/L 5.4* 5.1 4.4 5.0 CHLORIDE - [facility] mmol/L 104 103 104 109* CO2 - [facility] mmol/L 24 25 22 20* BUN - [facility] mg/dL 32* 38* 30* 38* CREATININE - [facility] mg/dL 1.6* 1.8* 1.6* 1.9* ESTIMATED GLOMERULAR FILTRATION RATE - [facility] mL/min 46* 38* 45* 37* Latest Ref Rng 01/31/2019 02/06/2020 08/06/2020 02/04/2021 11/30/2021 12/10/2021 01/01/2022 NEPH-FLOW Bun 6 - 20 mg/dL 19 18 23 (H) 24 (H) 29 (H) 32 (H) Cr 0.6 - 1.2 mg/dL 1.0 1.0 1.0 1.1 1.33 (E) 1.5 (H) 1.5 (H) eGFR >=60 mL/min 64.3 53.0 (E) 48 (L) 49 (L) eGFR >60 >60.0 >60.0 >60.0 K 3.5 - 5.1 mmol/L 5.2 (H) 5.3 (H) 5.3 (H) 5.2 (H) 4.6 (E) 5.1 5.4 (H) Latest Ref Rng 01/06/2022 02/06/2022 01/05/2023 09/28/2023 10/21/2023 11/04/2023 NEPH-FLOW Bun 6 - 20 mg/dL 23 (H) 25 (H) 21 (H) 38 (H) 30 (H) 38 (H) Cr 0.6 - 1.2 mg/dL 1.5 (H) 1.3 (H) 1.3 (H) 1.9 (H) 1.6 (H) 1.8 (H) eGFR >=60 mL/min 50 (L) 59 (L) 61 37 (L) 45 (L) 38 (L) eGFR >60 K 3.5 - 5.1 mmol/L 4.9 5.0 5.4 (H) 5.0 4.4 5.1 Latest Reference Range & Units 02/06/20 11:58 01/06/22 09:10 WBC 4.00 - 10.80 K/uL 5.97 6.71 RBC 4.50 - 5.25 M/uL 4.72 HGB 14.0 - 16.8 g/dL 14.5 14.8 HCT 40.0 - 48.4 % 45.0 46.0 MCV 82.0 - 99.5 fL 93.5 PLT 140 - 400 K/uL 221 193 Recent Labs Units 01/04/24 1105 11/04/23 1057 10/21/23 0914 09/28/23 1155 CALCIUM - [facility] mg/dL 9.4 9.4 9.6 9.3 Recent Labs Units 01/04/24 1105 09/28/23 1155 01/05/23 1106 09/11/22 1107 HEMOGLOBIN A1C - [facility] % 7.4* 8.6* 8.2* 7.3* Recent Labs Units 01/04/24 1108 11/04/23 1107 10/21/23 0918 01/05/23 1111 ALBUMIN/CREATININE RATIO, HIDE mg/g Creat Uninterpretable Albumin/Creatinine ratio due to very low albumin and creatinine values. -- -- -- ALBUMIN / CREATININE RATIO, URINE - [facility] mg/g Creat -- -- 17 <22 PROTEIN/ CREATININE RATIO, URINE - [facility] mg/g -- <143 -- -- Recent Labs Units 11/04/23 1107 CLARITY, URINE - [facility] Clear GLUCOSE, URINE - [facility] mg/dL >=1000* BILIRUBIN, URINE - [facility] Negative KETONE, URINE - [facility] mg/dL Negative SPECIFIC GRAVITY, URINE - [facility] 1.010 BLOOD, URINE - [facility] Negative PH, URINE - [facility] Units 6.0 PROTEIN, URINE - [facility] mg/dL Negative PROTEIN, RANDOM URINE - [facility] mg/dL <4 UROBILINOGEN, URINE - [facility] mg/dL Normal NITRITE, URINE - [facility] Negative ESTERASE, URINE - [facility] Negative BACTERIA, URINE - [facility] /HPF 0-25 WBC, URINE - [facility] /HPF 0-2 RBC, URINE - [facility] /HPF 0-2 TTE March 2022 There is a small size basal inferior, basal inferoseptal scar, LVEF lower limit of normal 50-54%, improved compared to the previous ejection fraction as measured at the time for nuclear stress test November,. ASSESSMENT AND PLAN: Stage 3 chronic kidney disease, unspecified whether stage 3a or 3b CKD (HCC) (Primary) - PTH - 25-HYDROXY VITAMIN D - PHOSPHORUS - BASIC METABOLIC PANEL - HGB Worsening renal function HTN, goal below 130/80 MGUS (monoclonal gammopathy of unknown significance) Chronic heart failure, unspecified heart failure type (HCC) Follow Up: Return in about 8 months (around 09/26/2024) for clinic visit w/ . | For: clinic visit w/ | Check-out note: only waitlist CKD3B most likely versus CKD 3 w/ no albuminuria w/ progressive renal dysfunction, faster than expected including since fall 2022, likely d/t challenging HF issues -cont jardiance -cont entresto > ? If needs dose adjustment -f/u labs as below BP w/ acceptable control -cont toprol, entresto Cont MGUS care w/ heme Patient Instructions -no medication changes -avoid medicines like aleve, advil, ibuprofen, aspirin more than 81 mg daily and other NSAIDS whichare not good for kidney patients. Take only tylenol (acetaminophen) up to 2000 mg daily as needed for pain or as directed by your primary care provider. -get back into activity routine -eat a low sodium diet (less than 2000 mg or 1/2 tsp) daily -when you get labs for hematology in spring 2023, check my labs as well Lana Miranda MD Nephrology, [address] [address] CC: Ref: SELF[[id number]] [address] ADDRESS AVAILABLE None (office) None (fax) PCP: ANSELMO LAWLER [address] [place] [address] [phone] This chart was completed in part utilizing [employer] Speech Voice Recognition Software. Randomword insertions, pronoun errors, and incomplete sentences are an occasional consequence of this system due to software limitations, and ambient noise. Any questions or concerns about the content, text, or information contained within the body of this dictation should be directly addressed to the provider for clarification. documented in this encounter Nursing Notes * Jennifer Casteloln RN - 01/25/2024 3:41 PM EST Follow up visit today. No recent illness or hospital stays. States he does monitor bps at home and they have been on target. Denies any edema. documented in this encounter Plan of Treatment Upcoming Encounters Date Type Department Care Team (Late st Contact Info) Description 04/27/2024 11:00 AM EDT Laboratory Laboratory, [facility] [place] [address] [place] [id number] Noemi Pino [address] [place] [address] 05/04/2024 12:30 PM EDT Office Visit Hematology/Oncology [facility] [address] [place], [place] [id number] Brittny Ford MD [address] [facility] [place] [address] 09/20/2024 1:40 PM EDT Office Visit Family Practice [facility] [address] [place] [address] Anselmo Lawler MD [address] [place] [address] 12/13/2024 10:40 AM EST Office Visit Nephrology, [facility] [address] [place] [address] Lana Miranda MD [address] [facility] [place] [address] Scheduled Orders Name Type Priority Associated Diagnoses Orde r Schedule PTH Lab Routine Stage 3 chronic kidney disease, unspecified whether stage 3a or 3b CKD (HCC) Ordered: 02/09/2024 25-HYDROXY VITAMIN D Lab Routine Stage 3 chronic kidney disease, unspecified whether stage 3a or 3b CKD (HCC) Ordered: 02/09/2024 PHOSPHORUS Lab Routine Stage 3 chronic kidney disease, unspecified whether stage 3a or 3b CKD (HCC) Ordered: 02/09/2024 BASIC METABOLIC PANEL Lab Routine Stage 3 chronic kidney disease, unspecified whether stage 3a or 3b CKD (HCC) Ordered: 02/09/2024 HGB Lab Routine Stage 3 chronic kidney disease, unspecified whether stage 3a or 3b CKD (HCC) Ordered: 02/09/2024 Scheduled Procedures Name Priority Associated Diagnoses Date/Ti me COLONOSCOPY FLEXIBLE PROXIMAL DIAGNOSTIC Recall History of colon polyps Health Maintenance Due Date Last Done Comments Cologuard 1994 Sigmoidoscopy 1994 Zoster Vaccines (1 of 2) 1999 CKD HGB USE SMARTSET 24902 01/06/202301/06, 11/30/2021, 02/06/2020, Additional history exists CKD PHOS USE SMARTSET 39211 01/06/2023 01/06/2022 B-12 01/05/2024 01/05/2023, 08/24, 12/10/2021, Additional history exists Diabetic Foot Exam 03/11/2024 03/11/2023, 0 02/18/2022, 02/07/2021, Additional history exists GFR 07/04/2024 01/04/2024, 10/23, 10/21/2023, Additional history exists HbA1c 07/04/2024 01/04/2024, 04/2023, 01/05/2023, Additional history exists Depression Screening 10/07/2024 10/07/2023 Fecal Occult Blood Test 10/21/2024 10/21/20 23, 08/19/2022, 08/19/2022 Diabetic Eye Exam 11/05/2024 11/05/2023 (Do ne elsewhere), 10/12/2023, 10/12/2023, Additional history exists Albumin/Creatinine Ratio 01/04/2025 024, 10/21/2023, 01/05/2023, Additional history exists Colonoscopy 06/11/2026 06/11/2016, 06/17/2006 [...] this encounter Medical Devices Implanted Type Area Manual Training Teacher Device Identifier Shelf Expiration Date Model / Serial / Lot Lens Intraoc 19.5 - [id number] - [id number] Implanted:Qty: 1 on 07/03/2020 by Rivera Merritt MD at OR [facility] Left: Eye [employer] 02/20/2025 [id number] / [id number] / Lens Intraoc 19.5 - [id number] - [id number] Implanted:Qty: 1 on 07/10/2020 by Rivera Merritt MD at OR [facility] Right: Eye [employer] 02/20/2025 [id number] / [id number] / [id number] documented as of this encounter Visit Diagnoses Diagnosis Stage 3 chronic kidney disease, unspecified whether stage 3a or 3b CKD (HCC)- Primary Worsening renal function HTN, goal below 130/80 Unspecified essential hypertension MGUS (monoclonal gammopathy of unknown significance) Monoclonal paraproteinemia Chronic heart failure, unspecified heart failure type (HCC) documented in this encounter Advance Directives Documents on File Type Date Recorded Patient Fish Flipper Expl anation Advance Directives and Living Will 07/24/2005 LIVING WILL Power of Sole Conforming Machine Operator 07/24/2005 [facility] Care Teams Near Eastern Archaeology Lecturer Relationship Specialty Start Date End Date Anselmo Lawler MD [address] [place] [address] PCP - General Family Medicine 08/03/17 documented as of this encounter"
--- OUTSIDE RECORDS SUMMARY | 2024-04-24 11:36 | External Medical Summary | Summary of Care ---
Author Name Unknown Organization [facility] Address [address] [facility] [place] [address] Phone [phone] Care Team Providers Care Robotics Application Engineer Name Role Phone Anselmo Junior MD Primary Care Provider + Reason for Visit * Reason Comments Medication Refill Encounter Details Date Type Department Care Team (Late st Contact Info) Description 12/16/2023 Refill Cardiology, [facility] [address] [place] [address] David Faith MD [address] [place] [address] Chronic systolic heart failure (HCC)*; Essential hypertension with goal blood pressure less than 140/90; PAF (paroxysmal atrial fibrillation) (HCC) Allergies Active Allergy Reactions Criticality Noted Date Comments Lisinopril 08/09/2010 Nagging cough documented as of this encounter (statuses as of 12/16/2023) Medications Medication Sig Dispensed Refills Start Date [...] TWICE DAILY 60 Tablet 0 12/03/2021 Active OneTouch Ultra In Vitro Strip (Glucose [...] Oral Tablet (Xarelto)Indications :PAF (paroxysmal atrial fibrillation) (HCC),Paroxysmal atrial tachycardia Take [...] 5 Active Entresto 24-26 MG Oral Tablet (sacubitril-valsarta n 24-26 mg per tab)Indications:Composition Tile Layer candace systolic heart failure (HCC),Essential hypertension with goal blood pressure less than 140/90,PAF (paroxysmal atrial fibrillation) (HCC) TAKE ONE TABLET BY MOUTH IN THE MORNING AND TAKE ONE TABLET BY MOUTH AT BEDTIME 180 Tablet 3 12/16/2023 5 Active Sacubitril-Valsartan 24-26 MG Oral Tablet (Entresto) TAKE ONE TABLET BY MOUTH IN THE MORNING AND TAKE ONE TABLET BY MOUTH AT BEDTIME 180 Tablet 3 12/10/2022 4 Discontinue d(Refill) documented as of this encounter (statuses as of 12/16/2023) Active Problems Problem Noted Date Diagnosed Date MGUS (monoclonal gammopathy of unknown significa nce) 10/23/2023 Overview: 10/15 kappa IgA Obesity, morbid (more than 1 00 lbs over ideal weight or BMI > 40) 03/11/2023 Hypertensive heart disease w ith chronic systolic congestive heart failure 03/11/2023 Coronary artery disease invo lving coronary bypass graft of [place] heart without angina pectoris 02/18/2022 Chronic systolic [...] 08/14 FOB WNL 01/14 Cardiac cath: Severe [place] Vessel Disease. CLEANING-LAD is widely patent with [...] as of this encounter (statuses as of 12/16/2023) Resolved Problems Problem Noted Date Diagnosed Date [...] DISPLACMNT 05/15/1999 Coronary artery disease invo lving [place] coronary artery of [place] heart without angina pectoris 02/18/2022 PURE HYPERCHOLESTEROLEM 10/23 Overview: Per Lipid Taxonomy. documented as of this encounter (statuses as of 12/16/2023) Immunizations Name Administration Dates Next Due COVID-19 [...] encounter Miscellaneous Notes * Telephone Encounter - Josh Cheema CRNP - 12/16/2023 8:48 AM EST Signed Prescriptions: Disp Refills Entresto 24-26 MG Oral Tablet (sacubitril-*180 Ta*3 Sig: TAKE ONE TABLET BY MOUTH IN THE MORNING AND TAKE ONE TABLET BY MOUTH AT BEDTIME Authorizing Provider: JOSH CHEEMA * Telephone Encounter - Colleen Rasmussen COT - 12/16/2023 8:46 AM ESTPending Prescriptions: Disp Refills Entresto 24-26 MG Oral Tablet (sacubitril-*180 Ta*3 Sig: TAKE ONE TABLET BY MOUTH IN THE MORNING AND TAKE ONE TABLET BY MOUTH AT BEDTIME * Telephone Encounter - Colleen Rasmussen COT - 12/16/2023 8:45 AM EST Did you pend patient's preferred pharmacy and medication before forwarding?yes Pharmacy: [facility] Pending Prescriptions: Disp Refills Entresto 24-26 MG Oral Tablet (sacubitril*180 Ta*3 Sig: TAKE ONE TABLET BY MOUTH IN THE MORNING AND TAKE ONE TABLET BY MOUTH AT BEDTIME Last Visit: 10/21/2023 (in office), 02/15/2020 (telemedicine) Next Visit: Visit date not found If no future appointments scheduled, and last appointment is greater than a year ago, please schedule patient for a follow-up appointment Last date the medication was ordered: 12-10-2022 Is this request for a controlled substance?No Urine Drug Screen:No results found for this or any previous visit. Patient Phone Numbers Labs: Lab Results Component Value Date/Time CREAT 1.8 (H) 11/04/2023 10:57 AM CREAT 1.33 11/30/2021 12:00 AM CREAT 1.0 08/06/2020 12:41 PM POTASSIUM 5.1 11/04/2023 10:57 AM POTASSIUM 4.6 11/30/2021 12:00 AM POTASSIUM 5.3 (H) 08/06/2020 12:41 PM TSH 2.69 01/31/2013 11:30 AM LDLCALC 57 12/10/2021 10:51 AM LDLCALC UNINTERPRETABLE RESULT 01/31/2019 12:19 PM LDLDIRECT 68 09/28/2023 11:55 AM LDLDIRECT 73 02/06/2020 11:59 AM LDLDIRECT 89 01/29/2009 10:56 AM ALT 14 09/28/2023 11:55 AM ALT 26 02/04/2017 02:02 PM HGBA1C 8.6 (H) 09/28/2023 11:55 AM HGBA1C 6.8 (H) 08/06/2020 12:41 PM documented in this encounter Plan of Treatment Upcoming Encounters Date Type Department Care Team (Late st Contact Info) Description 01/14/2024 11:40 AM EST Office Visit Family Practice [facility] [address] [place] [address] Anselmo Junior MD [address] [place] [address] 04/27/2024 11:00 AM EDT Laboratory Laboratory, [facility] [address] [place] [phone] Noemi Pino [facility] [address] [place] [address] 05/04/2024 12:30 PM EDT [facility] [place] [address] [facility] [place] [address] Brittny Ford MD [address] [facility] [place] [address] 08/16/2024 3:00 PM EDT Office Visit Nephrology, [facility] [address] [facility] [place] [address] Lana Miranda MD [address] [facility] [place] [address] Scheduled Procedures Name Priority Associated Diagnoses Date/Ti me COLONOSCOPY FLEXIBLE PROXIMAL DIAGNOSTIC Recall History of colon polyps Health Maintenance Due Date Last Done Comments Cologuard 1994 Sigmoidoscopy 1994 Zoster Vaccines (1 of 2) 1999 B-12 01/05/2024 01/05/2023, 08/24, 12/10/2021, Additional history exists Diabetic Foot Exam 03/11/2024 03/11/2023, 0 02/18/2022, 02/07/2021, Additional history exists HbA1c 03/28/2024 09/28/2023, 12/24, 09/11/2022, Additional history exists Depression Screening 10/07/2024 10/07/2023 Albumin/Creatinine Ratio 10/21/2024 023, 01/05/2023, 02/06/2022, Additional history exists Fecal Occult Blood Test 10/21/2024 10/21/2023, 08/19 GFR 11/04/2024 11/04/2023, 09/24, 09/28/2023, Additional history exists Diabetic Eye Exam 11/05/2024 11/05/2023 (Do ne elsewhere), 10/02/2022, 10/02/2021, Additional history exists Colonoscopy 06/11/2026 06/11/2016, 06/17/2006 [...] this encounter Medical Devices Implanted Type Area Auto Glass Installer Device Identifier Shelf Expiration Date Model / Serial / Lot Lens Intraoc 19.5 - [id number] - [id number] Implanted:Qty: 1 on 07/03/2020 by Rivera Merritt MD at [facility] Left: Eye BAUSCH & LOMB 02/20/2025 [id number] / [id number] / Lens Intraoc 19.5 - [id number] - [id number] Implanted:Qty: 1 on 07/10/2020 by Rivera Merritt MD at [facility] Right: Eye BAUSCH & LOMB 02/20/2025 [id number] / [id number] / [id number] documented as of this encounter Visit Diagnoses Diagnosis Chronic systolic heart failure (HCC)- Primary Chronic systolic heart failure Essential hypertension with goal blood pressure less than 140/90 PAF (paroxysmal atrial fibrillation) (HCC) Atrial fibrillation documented in this encounter Advance Directives Documents on File Type Date Recorded Patient Installation Drafter Expl anation Advance Directives and Living Will 07/24/2005 LIVING WILL Power of Machining Technician 07/24/2005 [facility] POWER OF TERMINAL GAUGER Care Teams Robotics Application Engineer Relationship Specialty Start Date End Date Anselmo Junior MD [address] [place] [address] PCP - General Family Medicine 08/03/17 documented as of this encounter
--- OUTSIDE RECORDS SUMMARY | 2024-04-24 11:36 | External Medical Summary | Summary of Care ---
Author Name Unknown Organization [facility] Address [address] [facility] [place] [address] Phone [phone] Care Team Providers Care Print Buyer Name Role Phone Anselmo Junior MD Primary Care Provider + Reason for Visit * Reason Comments Medication Refill Encounter Details Date Type Department Care Team (Late st Contact Info) Description 11/29/2023 Refill Pharmacy Call Center [phone] [place] [address] David Faith MD [address] [place] [address] Paroxysmal atrial tachycardia; Chronic systolic heart failure [...] hemoglobin A1c goal of less than 8.0% ([facility]) Take 1 Tablet by mouth in the morning. 100 Tablet 1 10/07/2023 Active metFORMIN HCl ER 500 MG Oral Tablet Extended Release 24 Hour (Glucophage XR)Indications:Type 2 diabetes mellitus with hemoglobin A1c goal of less than 8.0% ([facility]) Take 1 Tablet by mouth in the [...] disease invo lving coronary bypass graft of [place] heart without angina pectoris 02/18/2022 Chronic systolic [...] 08/14 FOB WNL 01/14 Cardiac cath: Severe [place] Vessel Disease. CLEANING-LAD is widely patent with [...] Summer 2015 colon-tubular adenoma aftab 5y 2016 @[place]-daughter did AAA screen--was WNL per pt. (no [...] DISPLACMNT 05/15/1999 Coronary artery disease invo lving [place] coronary artery of [place] heart without angina pectoris 02/18/2022 PURE HYPERCHOLESTEROLEM [...] Notes * Telephone Encounter - Jennifer Hein, [facility] - 11/30/2023 2:04 PM ESTRefused Prescriptions: Disp [...] 11:40 AM EST Office Visit Family Practice [facility] [address] [facility] [place] [address] Anselmo Junior MD [address] [place] [address] 04/27/2024 11:00 AM EDT Laboratory Laboratory, [facility] [address] [facility] [place] [phone] [facility] [address] [facility] [place] [address] 05/04/2024 12:30 PM EDT Office Visit Hematology/Oncology [facility] [address] [facility] [place] [address] Brittny Ford MD [address] [facility] [place] [address] 08/16/2024 3:00 PM EDT Office Visit Nephrology, [facility] [address] [facility] [place] [address] Lana Miranda MD [address] [facility] [place] [address] Scheduled Procedures Name Priority Associated Diagnoses Date/Ti [...] this encounter Medical Devices Implanted Type Area Audio Visual Design Engineer Device Identifier Shelf Expiration Date Model / Serial / Lot Lens Intraoc 19.5 - [id number] - [id number] Implanted:Qty: 1 on 07/03/2020 by Rivera Merritt MD at [facility] Left: Eye BAUSCH & LOMB 02/20/2025 [id number] / [id number] / Lens Intraoc 19.5 - [id number] - [id number] Implanted:Qty: 1 on 07/10/2020 by Rivera Merritt MD at [facility] Right: Eye BAUSCH & LOMB 02/20/2025 [id number] / [id number] / [id number] documented as of this encounter Visit Diagnoses Diagnosis Paroxysmal atrial tachycardia Paroxysmal supraventricular tachycardia Chronic systolic heart failure (HCC) Chronic systolic heart failure documented in this encounter Advance Directives Documents on File Type Date Recorded Patient Fat Purification Worker Expl anation Advance Directives and Living Will 07/24/2005 LIVING WILL Power of Steam Service Inspector 07/24/2005 [facility] POWER OF CHIEF ENGINEER RESEARCH Care Teams Print Buyer Relationship Specialty Start Date End Date Anselmo Junior MD [address] [place] [address] PCP - General Family Medicine 08/03/17 documented as of this encounter
--- OUTSIDE RECORDS SUMMARY | 2024-04-24 11:36 | External Medical Summary | Summary of Care ---
Author Name Unknown Organization [facility] Address [address] [place] [address] Phone [phone] Care Team Providers Care Airframe Technician Name Role Phone Anselmo Junior MD Primary Care Provider + Reason for Referral * Evaluate & Treat - Unlimited Visits (Within 3 days (urgent)) - Authorized Specialty Diagnoses / Procedures Referred By Contac t Referred To Contact Orthopaedic Surgery / Orthopedics Diagnoses Hip pain, unspecified laterality Anselmo Junior MD [address] [place] [address] Referral ID Status Reason Start Date Expiration Date Visits Requested Visits Authorized [id number] Authorized Specialty Services Required 08/12/[phone] Question Answer Referral Priority Within 3 days (urgent) What body part is the patient being seen for? Hip What condition is the patient being seen for? Sprain/Strain/Tear/Other Comments Acute severe flare of hip pain s/p chiro treatment of SI joint. [facility] to ER , [facility]50/10[facility] Reason for Visit * Reason Onset Date Comments Med Request 08/11/2023 Pt requesting pa in medicine non opoid Encounter Details Date Type Department Care Team (Late st Contact Info) Description 08/11/2023 Telephone Family Practice [facility] [address] [place] [address] Anselmo Junior MD [address] [place] [phone] Med Request (Pt requesting pain medicine n... Allergies Active Allergy Reactions Criticality Noted Date Comments Lisinopril 08/09/2010 Nagging cough documented as of this encounter (statuses as of 11/10/2023) Medications Medication Sig Dispensed Refills Start Date End Date Status ASPIRIN 81 MG OR TBECIndications:Cristino nary atherosclerosis 1 TABLET DAILY 30 0 3 Active ONETOUCH ULTRASOFT LANCETS MISCIndications:DM type 2, goal A1c below 7 Use twice daily for type ll diabetes testing 1 Box Dosing Unit 11 6 Active Sacubitril-Valsartan 24-26 MG Oral Tablet (Entresto) TAKE ONE TABLET BY MOUTH TWICE DAILY 60 Tablet 0 2 Active Metoprolol Succinate ER 50 MG Oral Tablet Extended Release 24 Hour (toPROL XL)Indications:Parox ysmal atrial tachycardia,Chronic systolic heart failure (HCC) TAKE ONE TABLET BY MOUTH EVERY MORNING 90 Tablet 3 3 12/30/19 24 Active Additional Information Patient taking differently:50 mg OralQ-1999, Reported on 01/12/2023 Sacubitril-Valsartan 24-26 MG Oral Tablet (Entresto) TAKE ONE TABLET BY MOUTH IN THE MORNING AND TAKE ONE TABLET BY MOUTH AT BEDTIME 180 Tablet 3 3 12/24/19 24 Active OneTouch Ultra In Vitro Strip (Glucose Blood)Indications:Ty pe 2 diabetes mellitus with hemoglobin A1c goal of less than 8.0% (HCC) USE TO TEST TWO TIMES A DAY 200 Strip 3 3 06/09/20 24 Active Metoprolol Succinate ER 50 MG Oral Tablet Extended Release 24 Hour (toPROL XL) TAKE 2 TABLETS (100MG) BY MOUTH EVERY MORNING 30 Tablet 0 2 10/13/20 23 Discontinu ed(Medicat ion List Clean Up) Furosemide 40 MG Oral Tablet (Lasix) TAKE ONE TABLET BY MOUTH EVERY MORNING 30 Tablet 0 2 10/13/20 23 Discontinu ed(Medicat ion List Clean Up) Empagliflozin 10 MG Oral Tablet (Jardiance)Indicatio ns:Type 2 diabetes mellitus with hemoglobin A1c goal of less than 8.0% ([facility]) TAKE ONE TABLET BY MOUTH EVERY MORNING 100 Tablet 1 3 09/16/20 23 Discontinu ed(Refill) metFORMIN HCl ER 500 MG Oral Tablet Extended Release 24 Hour (Glucophage XR)Indications:Type 2 diabetes mellitus with hemoglobin A1c goal of less than 8.0% ([facility]) TAKE TWO TABLETS BY MOUTH EVERY MORNING 200 Tablet 0 3 10/07/20 23 Discontinu ed(Refill) Ezetimibe 10 MG Oral Tablet (Zetia)Indications:D yslipidemia, goal LDL below 70 TAKE ONE TABLET BY MOUTH EVERY DAY 100 Tablet 0 3 10/07/20 23 Discontinu ed(Refill) Simvastatin 80 MG Oral Tablet (Zocor)Indications:D yslipidemia, goal LDL below 70 TAKE ONE TABLET BY MOUTH EVERY EVENING 100 Tablet 3 3 10/07/20 23 Discontinu ed(Refill) Furosemide 40 MG Oral Tablet (Lasix)Indications:C hronic systolic heart failure ([facility]) TAKE ONE TABLET BY MOUTH FIVE DAYS PER WEEK AND DIRECTED 90 Tablet 3 2 10/13/20 23 Discontinu ed(Medicat ion List Clean Up) Rivaroxaban 20 MG Oral Tablet (Xarelto)Indications :PAF (paroxysmal atrial fibrillation) ([facility]),Paroxysmal atrial tachycardia TAKE ONE TABLET BY MOUTH WITH DINNER 90 Tablet 3 2 10/07/20 23 Discontinu ed(Refill) Metoprolol Succinate ER 100 MG Oral Tablet Extended Release 24 Hour (toPROL XL)Indications:Essen tial hypertension with goal blood pressure less than 140/90 TAKE ONE TABLET BY MOUTH IN THE MORNING 90 Tablet 3 2 10/10/20 23 Discontinu ed(Refill) oxyCODONE-Acetaminop hen 5-325 MG Oral Tablet (Percocet) take 2 tablets by mouth every 6 hours As Needed for pain 20 Tablet 0 3 10/21/20 23 Discontinu ed(End of Procedure) documented as of this encounter (statuses as of 11/10/2023) Active Problems Problem Noted Date Diagnosed Date MGUS (monoclonal gammopathy of unknown significa nce) 10/23/2023 Overview: 10/15 kappa IgA Obesity, morbid (more than 1 00 lbs over ideal weight or BMI > 40) 03/11/2023 Hypertensive heart disease w ith chronic systolic congestive heart failure 03/11/2023 Coronary artery disease invo lving coronary bypass graft of [place] heart without angina pectoris 02/18/2022 Chronic systolic [...] 08/14 FOB WNL 01/14 Cardiac cath: Severe [place] Vessel Disease. CLEANING-LAD is widely patent with [...] Summer 2015 colon-tubular adenoma aftab 5y 2016 @[place]-daughter did AAA screen--was WNL per pt. (no actual records.) S/P CABG (coronary artery bypass graft) 04/15/20 05 documented as of this encounter (statuses as of 11/10/2023) Resolved Problems Problem Noted Date Diagnosed Date [...] DISPLACMNT 05/15/1999 Coronary artery disease invo lving [place] coronary artery of [place] heart without angina pectoris 02/18/2022 PURE HYPERCHOLESTEROLEM 10/23 Overview: Per Lipid Taxonomy. documented as of this encounter (statuses as of 11/10/2023) Immunizations Name Administration Dates Next Due COVID-19 mRNA, LNP-s, No Pre serve, 2-Dose Series (Moderna) 10/10/2021,01/30/2021,01/02/2021 COVID-19, mRNA, LNP-s, PF, B ooster, 100mcg/0.5mg [...] encounter Miscellaneous Notes * Telephone Encounter - Parker Bernardo OSA - 08/12/2023 2:33 PM EDT Called pt, scheduled ortho referral * Telephone Encounter - Ann Bryant LPN - 08/12/2023 2:27 PM EDT Patient aware and verbalized understanding * Telephone Encounter - Anselmo Junior MD - 08/12/2023 2:08 PM EDT Urgent ortho referral signed. Nursing--for xarelto, it's not ideal to use OTC naproxen with his xarelto, but if tylenol isn't helping, then it's ok to use for short term for pain. Will try to get him in quickly to ortho as well * Telephone Encounter - Araseli Paul LPN - 08/12/2023 1:03 PM EDT Pt was told because a--fib he can't take anti inflammatories, so would that include naproxen? Says he cannot take advil either. He was told he could only take Tylenol. * Telephone Encounter - Anselmo Junior MD - 08/11/2023 4:46 PM EDT Would use OTC naproxen 1-2 pills twice a day if helpful until seen in office * Telephone Encounter - Araseli Paul LPN - 08/11/2023 4:26 PM EDT Has ED follow up, but not until next week. Please advise. * Telephone Encounter - Pebbles Ovalle OSA - 08/11/2023 4:16 PM EDT Pt was seen at ED [facility] and was prescribed percocet for hip pain, pt is requesting a medication that is not opoid and can help with his hip pain which cause difficulty walking. documented in this encounter Plan of Treatment Upcoming Encounters Date Type Department Care Team (Late st Contact Info) Description 01/14/2024 11:40 AM EST Office Visit Family Practice [facility] [address] [facility] [place] [address] Anselmo Junior MD [address] [place] [address] 04/27/2024 11:00 AM EDT Laboratory Laboratory, [facility] [address] [facility] [phone] [facility] [address] [facility] [place] [address] 05/04/2024 12:30 PM EDT Office Visit Hematology/Oncology [facility] 200 [facility] [place] [address] Brittny Ford MD [address] [facility] [place] [address] 08/16/2024 3:00 PM EDT Office Visit Nephrology, [facility] [address] [facility] [address] [place] [address] Lana Miranda MD [address] [facility] [place] [address] Scheduled Procedures Name Priority Associated Diagnoses Date/Ti me COLONOSCOPY FLEXIBLE PROXIMAL DIAGNOSTIC Recall History of colon polyps Scheduled Referrals Name Type Priority Associated Diagnoses Orde r Schedule ORTHOPAEDICS REFERRAL OP Referral Within 3 days (urgent) Hip pain, unspecified laterality Ordered: 08/12/2023 Health Maintenance Due Date Last Done Comments [...] this encounter Medical Devices Implanted Type Area Executive Assistant To General Counsel Device Identifier Shelf Expiration Date Model / Serial / Lot Lens Intraoc 19.5 - [id number] - [id number] Implanted:Qty: 1 on 07/03/2020 by Rivera Merritt MD at [facility] Left: Eye BAUSCH & LOMB 02/20/2025 [id number] / [id number] / Lens Intraoc 19.5 - [id number] - [id number] Implanted:Qty: 1 on 07/10/2020 by Rivera Merritt MD at [facility] Right: Eye BAUSCH & LOMB 02/20/2025 [id number] / [id number] / [id number] documented as of this encounter Visit Diagnoses Diagnosis Hip pain, unspecified laterality- Primary documented in this encounter Advance Directives Documents on File Type Date Recorded Patient Rug Cleaner Expl anation Advance Directives and Living Will 07/24/2005 LIVING WILL Power of Asphalt Tamper 07/24/2005 [facility] POWER OF AFLOAT CRYPTOLOGIC MANAGER Care Teams Airframe Technician Relationship Specialty Start Date End Date Anselmo Junior MD [address] [place] [address] PCP - General Family Medicine 08/03/17 documented as of this encounter
--- OUTSIDE RECORDS SUMMARY | 2024-04-24 11:36 | External Medical Summary ---
Author Name Unknown Address Unknown Organization K01:[facility] [place] [address] [facility] [address] Laboratory Report Ordering Provider Test Date Status NURIS SWANSON 01/04/2024 11:05:56 Final Observation Date Value Abnormality Reference (Units ) Status HbA1C 01/04/2024 11:05:56 7.4 Above high normal 4. 0-5.6 (%) Final The use of HbA1c to monitor glycemic status is based on normal hemoglobin and HbA composition. This test should not be used in patients with abnormal hemoglobin that affects the half life of the red blood cell or the in vivo glycation rates. Glucose, estimated average 01/04/2024 11:05:56 166 Above high normal <126 (mg/dL) Hilario busch Performing Location [facility] [address] [place] [address]
--- OUTSIDE RECORDS SUMMARY | 2024-04-24 11:36 | External Medical Summary | Summary of Care ---
Author Name Unknown Organization [facility] Address [address] [facility] [place] [address] Phone [phone] Care Team Providers Care Unix Manager Name Role Phone Anselmo Junior MD Primary Care Provider + Reason for Visit * Reason Comments Return Visit 3 month return Encounter Details Date Type Department Care Team (Late st Contact Info) Description 01/14/2024 11:20 AM EST Office Visit [facility] [address] [place] [address] Anselmo Junior MD [address] [place] [address] MGUS (monoclonal gammopathy of unknown significance)*; Dyslipidemia, goal LDL below 100; Coronary artery disease involving coronary bypass graft of [place] heart without angina pectoris; Type 2 diabetes mellitus with hemoglobin A1c goal of less than 8.0% ([facility]); S/P CABG (coronary artery bypass graft); Chronic systolic heart failure ([facility]); 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, with long-term current use of insulin ([facility]) Allergies Active Allergy Reactions Criticality Noted Date Comments Lisinopril 08/09/2010 Nagging cough documented as of this encounter (statuses as of 01/14/2024) Medications Medication Sig Dispensed Refills Start Date [...] Oral Tablet (Xarelto)Indications :PAF (paroxysmal atrial fibrillation) ([facility]),Paroxysmal atrial tachycardia Take 1 Tablet by [...] Oral Tablet (sacubitril-valsarta n 24-26 mg per tab)Indications:Alternative Dispute Resolution Mediator candace systolic heart failure (HCC),Essential hypertension with [...] 01/14/2024 Active Empagliflozin 10 MG Oral Tablet (Jardiance)Indicatio ns:Type 2 diabetes mellitus with hemoglobin A1c goal of less than 8.0% (HCC) Take 1 Tablet by mouth in the morning. 100 Tablet 3 01/14/2024 Active Pioglitazone HCl 30 MG Oral Tablet (Actos)Indications:T ype 2 diabetes mellitus with hemoglobin A1c goal of less than 8.0% (HCC) Take 1 Tablet by mouth in the morning. 100 Tablet 1 10/07/2023 4 Discontinue d(Refill) Empagliflozin 10 MG Oral Tablet (Jardiance)Indicatio ns:Type 2 diabetes mellitus with hemoglobin A1c goal of less than 8.0% (HCC) Take 1 Tablet by mouth in the morning. 100 Tablet 0 10/07/2023 4 Discontinue d(Refill) documented as of this encounter (statuses as of 01/14/2024) Active Problems Problem Noted Date Diagnosed Date Diabetes mellitus due to und erlying condition [...] disease invo lving coronary bypass graft of [place] heart without angina pectoris 02/18/2022 Chronic systolic [...] 08/14 FOB WNL 01/14 Cardiac cath: Severe [place] Vessel Disease. CLEANING-LAD is widely patent with [...] Summer 2015 colon-tubular adenoma aftab 5y 2016 @[place]-daughter did AAA screen--was WNL per pt. (no actual records.) S/P CABG (coronary artery bypass graft) 04/15/20 05 documented as of this encounter (statuses as of 01/14/2024) Resolved Problems Problem Noted Date Diagnosed Date [...] DISPLACMNT 05/15/1999 Coronary artery disease invo lving [place] coronary artery of [place] heart without angina pectoris 02/18/2022 PURE HYPERCHOLESTEROLEM 10/23 Overview: Per Lipid Taxonomy. documented as of this encounter (statuses as of 01/14/2024) Immunizations Name Administration Dates Next Due COVID-19 [...] money to buy more. Never true 03/11/20 Within the past 12 months, t he [...] Sign Reading Time Taken Comments Blood Pressure 110/60 01/14/2024 11:23 AM EST Pulse 66 01/14/2024 11:23 AM EST Temperature - - Respiratory Rate 20 01/14/2024 11:23 AM EST Oxygen Saturation 96% 01/14/2024 11:23 AM EST Inhaled Oxygen Concentration - - Weight 113.5 kg (250 lb 5 oz) 01/14/2024 11:23 A M EST Height - - Body Mass Index 39.2 11/03/2023 10:00 AM EST documented in this encounter Progress Notes * Anselmo Junior MD - 01/14/2024 1:18 PM EST SUBJECTIVE: Emerson Barraza is a 73 year old male here for Return Visit (3 month return) . Here for follow-up. Appreciate renal and Hematology consult. Was diagnosed with MGUS. Does not wantto follow up with Hematology again but is willing to do follow-up labs. His labs this month show that his kidney function is slightly improved in his overall stable. He has not been going to the gym lately but is planning to go back to [employer]. He is bowling twice a week. No fever, chills, chest pain, shortness of breath, headache, nausea, vomit, diarrhea, constipation or vision changes No polyuria/dipsia. Physical: BP 110/60 | Pulse 66 | Resp 20 | Wt 113.5 kg (250 lb 5 oz) | SpO2 96% | BMI 39.20 kg/m | BSA 2.32m General-No apparent Distress Head, Eyes, Ears, Nose, Throat--Normocephalic, atraumatic Neck-Supple Lymph-no lymphadenopathy Lungs-Clear to Auscultation bilaterally Cardiovascular--Regular rate & Rhythm, +s1, s2, no murmur Abdomen-soft, nontender, nondistended + bowel sounds Extremities--no edema Neuro-alert & oriented x3 (D47.2) MGUS (monoclonal gammopathy of unknown significance) (primary encounter diagnosis) Plan: rec heme f/u--he declined. So we will monitor labs . Consider reconsult prn He is aware has risk of progression to malignancy (E78.5) Dyslipidemia, goal LDL below 100 Plan: cont mgmt (I25.810) Coronary artery disease involving coronary bypass graft of [place] heart without angina pectoris Plan: cont medm gmt (E11.9) Type 2 diabetes mellitus with hemoglobin A1c goal of less than 8.0% (HCC) Plan: Pioglitazone HCl 30 MG Oral Tablet (Actos), Empagliflozin 10 MG Oral Tablet (Jardiance) Cont actos--doing well Cont jardiance (Z95.1) S/P CABG (coronary artery bypass graft) Plan: cont medm gmt (I50.22) Chronic systolic heart failure (HCC) Plan: cont med mgmt (E08.22, N18.31, Z79.4) 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, with long-term current use of insulin (HCC) Plan: at goal contmgmt (This note was completed using the dictation program Fluency Direct. As such, there may be misspellings, word substitutions, or other variations that should not change the essence of the clinical content of this encounter note.If there is need for further clarification, please direct questions to the provider listed above.) Anselmo Juinor MD documented in this encounter Nursing Notes * Ladan RedmondNABIL rodriguez - 01/14/2024 11:23 AM EST The patient has been properly identified by confirmation of name and date of . Chief Complaint Patient presents with Return Visit 3 month return documented in this encounter Plan of Treatment Upcoming Encounters Date Type Department Care Team (Late st Contact Info) Description 01/25/2024 3:40 PM EST Office Visit Nephrology, [facility] [address] [facility] [place] [address] Lana Miranda MD [address] [facility] [place] [address] 04/27/2024 11:00 AM EDT Laboratory Laboratory, [facility] [address] [facility] [place] [phone] PinoNoemi krishnan [facility] [address] [facility] [place] [address] 05/04/2024 12:30 PM EDT Office Visit Hematology/Oncology [facility] [address] [facility] [place] [phone] Brittny Ford MD [address] [facility] [place] [address] 09/20/2024 1:40 PM EDT Office Visit Family Practice [facility] [address] [facility] [place] [address] Anselmo Junior MD [address] [facility] [place] [address] Scheduled Procedures Name Priority Associated Diagnoses Date/Ti me COLONOSCOPY FLEXIBLE PROXIMAL DIAGNOSTIC Recall History of colon polyps Health Maintenance Due Date Last Done Comments Cologuard 1994 Sigmoidoscopy 1994 Zoster Vaccines (1 of 2) 1999 CKD HGB USE SMARTSET 15012 01/06/202301/06, 11/30/2021, 02/06/2020, Additional history exists CKD PHOS USE SMARTSET 18585 01/06/2023 01/06/2022 B-12 01/05/2024 01/05/2023, 08/24, 12/10/2021, [...] this encounter Medical Devices Implanted Type Area Reconstructive Surgeon Device Identifier Shelf Expiration Date Model / Serial / Lot Lens Intraoc 19.5 - [id number] - [id number] Implanted:Qty: 1 on 07/03/2020 by Rivera Merritt MD at OR [facility] Left: Eye [employer] 02/20/2025 [id number] / [id number] / Lens Intraoc 19.5 - [id number] - [id number] Implanted:Qty: 1 on 07/10/2020 by Rivera Merritt MD at [facility] Right: Eye [employer] LOMB 02/20/2025 [id number] / [id number] / [id number] documented as of this encounter Visit Diagnoses Diagnosis MGUS (monoclonal gammopathy of unknown significance)- Primary Monoclonal paraproteinemia Dyslipidemia, goal LDL below 100 Other and unspecified hyperlipidemia Coronary artery disease involving coronary bypass graft of [place] heart without angina pectoris Type 2 diabetes mellitus with hemoglobin A1c goal of less than 8.0% (HCC) S/P CABG (coronary artery bypass graft) Postsurgical aortocoronary bypass status Chronic systolic heart failure (HCC) Chronic systolic heart failure 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
--- OUTSIDE RECORDS SUMMARY | 2024-04-24 11:36 | External Medical Summary ---
Author Name Unknown Address Unknown Organization K01:LABORATORY [facility] - [address] [place] [address] Laboratory Report Ordering Provider Test Date Status NURIS SWANSON 01/04/2024 11:08:38 Final Normal: <30 mg/g creatinine< br/>High: 30-300 mg/g creatinine
Very High: >300 mg/g creatinine
Nephrotic: >2200 mg/g creatinine Observation Date Value Abnormality Reference (Units) Status Albumin, Urine 01/04/2024 11:08:38 <1.20 (mg/dL) Final Creatinine, Urine 01/04/2024 11:08:38 33 (mg/dL) Final ALBUMIN/CREATININE RATIO, HIDE 01/04/2024 11:08:38 Uninterpretable Albumin/Creatinine ratio due to very low albumin and creatinine values. <30 (mg/g Creat) Final Performing Location LABORATORY [facility] - [address] [place] [address]
--- OUTSIDE RECORDS SUMMARY | 2024-04-24 11:36 | External Medical Summary | Summary of Care ---
Author Name Unknown Organization [facility] Address [address] [facility] [place] [address] Phone [phone] Care Team Providers Care Asp Net C Developer Name Role Phone Anselmo Junior MD Primary Care Provider + Reason for Visit * Reason Onset Date Comments Health Maintenance 02/08/2024 Encounter Details Date Type Department Care Team (Late st Contact Info) Description 02/08/2024 Telephone Family Practice [facility] [address] [place] [address] Anselmo Junior MD [address] [place] [id number] Health Maintenance Allergies Active Allergy Reactions Criticality Noted Date Comments Lisinopril 08/09/2010 Nagging cough documented as of this encounter (statuses as of 02/08/2024) Medications Medication Sig Dispensed Refills Start Date [...] as of this encounter (statuses as of 02/08/2024) Active Problems Problem Noted Date Diagnosed Date [...] disease invo lving coronary bypass graft of [place] heart without angina pectoris 02/18/2022 Chronic systolic [...] 08/14 FOB WNL 01/14 Cardiac cath: Severe [place] Vessel Disease. CLEANING-LAD is widely patent with [...] as of this encounter (statuses as of 02/08/2024) Resolved Problems Problem Noted Date Diagnosed Date [...] DISPLACMNT 05/15/1999 Coronary artery disease invo lving [place] coronary artery of [place] heart without angina pectoris 02/18/2022 PURE HYPERCHOLESTEROLEM 10/23 Overview: Per Lipid Taxonomy. documented as of this encounter (statuses as of 02/08/2024) Immunizations Name Administration Dates Next Due COVID-19 [...] encounter Miscellaneous Notes * Telephone Encounter - Nenita Vidales LPN - 02/08/2024 11:28 AM EDT Care Gaps Comprehensive Care Outreach Last Office/Telemedicine Visit: 01/14/2024 (in office), Visit date not found (telemedicine) Next Office Visit: 09/20/2024 Hemoglobin AIC Results: Lab Results Component Value Date/Time HEMOGLOBIN A1C - [facility] 7.4 (H) 01/04/2024 11:05 AM HEMOGLOBIN A1C - [facility] 8.6 (H) 09/28/2023 11:55 AM HEMOGLOBIN A1C - [facility] 8.2 (H) 01/05/2023 11:06 AM HEMOGLOBIN A1C - [facility] 6.8 (H) 08/06/2020 12:41 PM HEMOGLOBIN A1C - [facility] 6.8 (H) 02/06/2020 11:59 AM HEMOGLOBIN A1C - [facility] 8.1 (H) 08/04/2019 11:57 AM BP Readings from Last 1 Encounters: 01/25/24 114/68 Reviewed Health Maintenance below: Health Maintenance Topic Date Due Zoster Vaccines (1 of 2) Never done CKD HGB USE SMARTSET 05398 01/06/2023 CKD PHOS USE SMARTSET 11342 01/06/2023 B-12 01/05/2024 Diabetic Foot Exam 03/11/2024 HbA1c 07/04/2024 GFR 07/04/2024 Labs now and aug Care Gap Outreach Action Taken: Left message documented in this encounter Plan of Treatment Upcoming Encounters Date Type Department Care Team (Late st Contact Info) Description 04/27/2024 11:00 AM EDT Laboratory Laboratory, [facility] [place] [address] [place] [phone] Noemi Pino [address] [place] [address] 05/04/2024 12:30 PM EDT Office Visit Hematology/Oncology Willie Casarez [place] [address] [facility] [place] [phone] Brittny Ford MD [address] [facility] [place] [address] 09/20/2024 1:40 PM EDT Office Visit Family Practice [facility] [address] [place] [address] Anselmo Junior MD [address] [place] [address] 12/13/2024 10:40 AM EST Office Visit Nephrology, [facility] Casarez [address] [facility] [place] [address] Lana Miranda MD [address] [facility] [place] [address] Scheduled Procedures Name Priority Associated Diagnoses Date/Ti me COLONOSCOPY FLEXIBLE PROXIMAL DIAGNOSTIC Recall History of colon polyps Health Maintenance Due Date Last Done Comments Cologuard 1994 Sigmoidoscopy 1994 Zoster Vaccines (1 of 2) 1999 CKD HGB USE SMARTSET 01383 01/06/202301/06, 11/30/2021, 02/06/2020, Additional history exists CKD PHOS USE SMARTSET 73749 01/06/2023 01/06/2022 B-12 01/05/2024 01/05/2023, 08/24, 12/10/2021, Additional history exists Diabetic Foot Exam 03/11/2024 03/11/2023, 0 02/18/2022, 02/07/2021, Additional history exists GFR 07/04/2024 01/04/2024, 10/23, 10/21/2023, Additional history exists HbA1c 07/04/2024 01/04/2024, 1104/2023, 01/05/2023, Additional history exists Depression Screening 10/07/2024 [...] this encounter Medical Devices Implanted Type Area Winder Helper Device Identifier Shelf Expiration Date Model / Serial / Lot Lens Intraoc 19.5 - [id number] - [id number] Implanted:Qty: 1 on 07/03/2020 by Rivera Merritt MD at OR [facility] Left: Eye [employer]USCH [employer] LOMB 02/20/2025 [id number] / [id number] / Lens Intraoc 19.5 - [id number] - [id number] Implanted:Qty: 1 on 07/10/2020 by Rivera Merritt MD at OR [facility] Right: Eye BAUSCH [employer] LOMB 02/20/2025 [id number] / [id number] / [id number] documented as of this encounter Advance Directives Documents on File Type Date Recorded Patient 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
--- OUTSIDE RECORDS SUMMARY | 2024-04-24 11:37 | External Medical Summary | Summary of Care ---
Author Name Unknown Organization [facility] Address [address] [facility] [place] [address] Phone [phone] Care Team Providers Care Social Sciences Professor Name Role Phone Anselmo Junior MD Primary Care Provider + Encounter Details Date Type Department Care Team (Late st Contact Info) Description 11/10/2023 Population Health External Data Unspecified Department Allergies Active Allergy Reactions Criticality Noted Date [...] TWICE DAILY 60 Tablet 0 12/03/2021 Active Metoprolol Succinate ER 50 MG Oral Tablet Extended Release 24 Hour (toPROL XL)Indications:Paroxy smal atrial tachycardia,Chronic systolic heart failure (HCC) TAKE ONE TABLET BY MOUTH EVERY MORNING 90 Tablet 3 12/30/2022 4 Active Additional Information Patient taking differently:50 mg OralQPM-1999, Reported on 01/12/2023 Sacubitril-Valsartan 24-26 MG Oral [...] hemoglobin A1c goal of less than 8.0% ([facility]) Take 1 Tablet by mouth in the morning. 100 Tablet 1 10/07/2023 Active metFORMIN HCl ER 500 MG Oral Tablet Extended Release 24 Hour (Glucophage XR)Indications:Type 2 diabetes mellitus with hemoglobin A1c goal of less than 8.0% ([facility]) Take 1 Tablet by mouth in the morning. 100 Tablet 0 10/07/2023 Active Empagliflozin 10 MG Oral Tablet (Jardiance)Indication s:Type 2 diabetes mellitus with hemoglobin A1c goal of less than 8.0% ([facility]) Take 1 Tablet by mouth in [...] Oral Tablet (Xarelto)Indications: PAF (paroxysmal atrial fibrillation) ([facility]),Paroxysmal atrial tachycardia Take 1 Tablet by [...] disease invo lving coronary bypass graft of [place] heart without angina pectoris 02/18/2022 Chronic systolic [...] 08/14 FOB WNL 01/14 Cardiac cath: Severe [place] Vessel Disease. CLEANING-LAD is widely patent with [...] Summer 2015 colon-tubular adenoma aftab 5y 2016 @[place]-daughter did AAA screen--was WNL per pt. (no [...] DISPLACMNT 05/15/1999 Coronary artery disease invo lving [place] coronary artery of [place] heart without angina pectoris 02/18/2022 PURE HYPERCHOLESTEROLEM [...] 11:40 AM EST Office Visit Family Practice [facility] [address] [place] [address] Anselmo Junior MD [address] [place] [address] 04/27/2024 11:00 AM EDT Laboratory Laboratory, [facility] [address] [place] [phone] Noemi Pino [facility] [address] [place] [address] 05/04/2024 12:30 PM EDT Office Visit Hematology/Oncology [facility] [place] [address] [facility] [address] [place] [address] Brittny Ford MD [address] [facility] [address] [place], [place] [address] 08/16/2024 3:00 PM EDT Office Visit Nephrology, [facility] [address] [facility] [address] [place], [place] [address] Lana Miranda MD [address] [facility] [address] [place], [place] [address] Scheduled Procedures Name Priority Associated Diagnoses Date/Ti [...] this encounter Medical Devices Implanted Type Area Pulper Operator Device Identifier Shelf Expiration Date Model / Serial / Lot Lens Intraoc 19.5 - [id number] - [id number] Implanted:Qty: 1 on 07/03/2020 by Rivera Merritt MD at OR [facility] Left: Eye [employer]USCH [employer] LOMB 02/20/2025 [id number] / [id number] / Lens Intraoc 19.5 - [id number] - [id number] Implanted:Qty: 1 on 07/10/2020 by Rivera Merritt MD at OR [facility] Right: Eye BAUSCH [employer] LOMB 02/20/2025 [id number] / [id number] / [id number] documented as of this encounter Advance Directives Documents on File Type Date Recorded 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
--- OUTSIDE RECORDS SUMMARY | 2024-04-24 11:37 | External Medical Summary ---
Author Name Unknown Address Unknown Organization K01:LABORATORY [facility] - [address] [place] [address] Laboratory Report Ordering Provider Test Date Status STEFFANIE CORLEY 11/04/2023 11:07:48 Final Normal: <150 mg/ g creatinine
High: 150-500 mg/g creatinine
Very High: >500 mg/g creatinine
Nephrotic: >3000 mg/g creatinine Observation Date Value Abnormality Reference (Units ) Status Protein/Creatinine [Ratio] in Urine 11/04/2023 11:07:48 <143 <150 (mg/g ) Final Protein, Urine 11/04/2023 11:07:48 <4 (mg/dL) Final Creatinine, Urine 11/04/2023 11:07:48 28 (mg/dL) Final Performing Location LABORATORY [facility] - [address] [place] [address]
--- OUTSIDE RECORDS SUMMARY | 2024-04-24 11:37 | External Medical Summary ---
Author Name Unknown Address Unknown Organization K01:[facility] [place] [address] [facility] [place] [address] Laboratory Report Ordering Provider Test Date Status STEFFANIE CORLEY 11/04/2023 11:07:48 Final Observation Date Value Abnormality Reference (Units ) Status Color of Urine by Auto 11/04/2023 11:07:48 Colorless Colorless, Light Yellow, Yellow, Dark Yellow Final Clarity, Urine 11/04/2023 11:07:48 Clear Clear Final Glucose [Mass/volume] in Urine by Automated test strip 11/04/2023 11:07:48 >=1000 Abnormal Negative (mg/dL) Final Bilirubin.total [Presence] in Urine by Automated test strip 11/04/2023 11:07:48 Negative Negative Final Ketones [Mass/volume] in Urine by Automated test strip 11/04/2023 11:07:48 Negative Negative (mg/dL) Final Specific gravity, Urine 11/04/2023 11:07:48 1.010 1.003-1.030 Final Hemoglobin [Presence] in Urine by Automated test strip 11/04/2023 11:07:48 Negative Negative Final pH, Urine 11/04/2023 11:07:48 6.0 5.0-7.5 (Units) Final Protein [Mass/volume] in Urine by Automated test strip 11/04/2023 11:07:48 Negative Negative (mg/dL) Final Urobilinogen [Mass/volume] in Urine by Automated test strip 11/04/2023 11:07:48 Normal Normal (mg/dL) Final Nitrite [Presence] in Urine by Automated test strip 11/04/2023 11:07:48 Negative Negative Final Leukocyte esterase [Presence] in Urine by Automated test strip 11/04/2023 11:07:48 Negative Negative Final RBC, Urine 11/04/2023 11:07:48 0-2 0-2 (/HPF) Final WBC, Urine 11/04/2023 11:07:48 0-2 0-2 (/HPF) Final Bacteria [#/area] in Urine sediment by Microscopy high power field 11/04/2023 11:07:48 0-25 0-25 (/HPF) Final Performing Location LAB[facility] [place] [facility] [address] [facility] [address]
--- OUTSIDE RECORDS SUMMARY | 2024-04-24 11:37 | External Medical Summary | Summary of Care ---
Author Name Unknown Organization [facility] Address [address] [place] [place] [address] Phone [phone] Care Team Providers Care Service Center Specialist Name Role Phone Anselmo Junior MD Primary Care Provider + Reason for Visit * Reason Comments NEW PATIENT * Evaluate & Treat - Unlimited Visits (Within 30 days (routine)) - Authorized Specialty Diagnoses / Procedures Referred By Fco t Referred To Contact Hematology/Oncology / Hematology Oncology Diagnoses MGUS (monoclonal gammopathy of unknown significance) Acute renal failure superimposed on stage 3b chronic kidney disease, unspecified acute renal failure type (HCC) Anselmo Junior MD [address] [facility] [place] [address] Referral ID Status Reason Start Date Expiration Date Visits Requested Visits Authorized [id number] Authorized Specialty Services Required 10/23/[phone] Encounter Details Date Type Department Care Team (Late st Contact Info) Description 11/03/2023 10:00 AM EST Office Visit Hematology/Oncology Willie Casarez [place] [address] [place] [address] Brittny Ford MD [address] [place] [address] MGUS (monoclonal gammopathy of unknown significance)* Allergies Active Allergy Reactions Criticality Noted Date Comments Lisinopril 08/09/2010 Nagging cough documented as of this encounter (statuses as of 11/03/2023) Medications Medication Sig Dispensed Refills Start Date End Date Status ASPIRIN 81 MG OR TBECIndications:Coron winston atherosclerosis 1 TABLET DAILY 30 0 08/08/2003 Active ONETOUCH ULTRASOFT RALPH MISCIndications:DM type 2, goal A1c below 7 [...] as of this encounter (statuses as of 11/03/2023) Active Problems Problem Noted Date Diagnosed Date MGUS (monoclonal gammopathy of unknown significa nce) 10/23/2023 Overview: 10/15 kappa IgA Obesity, morbid (more than 1 00 lbs over ideal weight or BMI > 40) 03/11/2023 Hypertensive heart disease w ith chronic systolic congestive heart failure 03/11/2023 Coronary artery disease invo lving coronary bypass graft of minto heart without angina pectoris 02/18/2022 Chronic systolic heart failure 12/06/2021 Paroxysmal atrial tachycardia 12/02/2021 Overview: 12/14 ER Dyslipidemia, goal LDL below 100 02/07/2021 Type 2 diabetes mellitus wit h hemoglobin A1c goal of less than 8.0% 07/20/2018 History of nonmelanoma skin cancer 01/19/2018 Overview: recurrent BCC upper back 01/04 Well adult exam 08/03/2017 Overview: 10/15 MGUS kappa IGA--refer heme, renal 08/14 FOB WNL 01/14 Cardiac cath: Severe [place] Vessel Disease. CLEANING-LAD is widely patent with [...] as of this encounter (statuses as of 11/03/2023) Resolved Problems Problem Noted Date Diagnosed Date [...] DISPLACMNT 05/15/1999 Coronary artery disease invo lving minto coronary artery of minto heart without angina pectoris 02/18/2022 PURE HYPERCHOLESTEROLEM 10/23 Overview: Per Lipid Taxonomy. documented as of this encounter (statuses as of 11/03/2023) Immunizations Name Administration Dates Next Due COVID-19 [...] Sign Reading Time Taken Comments Blood Pressure 117/76 11/03/2023 10:00 AM EST Pulse 81 11/03/2023 10:00 AM EST Temperature 36.9 C (98.4 F) 11/03/2023 1 0:00 AM EST Respiratory Rate - - Oxygen Saturation 93% 11/03/2023 10: 00 AM EST Inhaled Oxygen Concentration - - Weight 109.2 kg (240 lb 12.8 oz) 2022 10:00 AM EST Height 170.2 cm (5' 7") 11/03/2023 10:0 0 AM EST Body Mass Index 37.71 11/03/2023 10:00 AM EST documented in this encounter Progress Notes * Brittny Ford MD - 11/03/2023 10:09 AM EST Outpatient Consult Note Data Source: Patient, Epic record. 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 Patient had issues with back pain few months ago and he took ibuprofen. He also has a history of congestive heart failure and was treated with Lasix. Currently he is taking Lasix 40 mg three times a week. Overall clinically he is stable without any new symptoms of complain. His back pain is stable. He denies any headache, dizziness, chest pain, shortness breath palpitation abdominal pain or distention, bleeding, bruising, nausea, vomiting fever, night sweats, weight loss, new bone pain. Recent blood test were done on 10/21/2023 which shows creatinine 1.6 with the rest of the electrolytes in normal range and calcium was normal. Protein electrophoresis revealed presence of the paraprotein with quantity less than 0.5 grams/dL. Serum immunofixation is positive for monoclonal IgG kappagammopathy. IgA level was 590, IgG was 672 and IgM was 31. [place] light chain was 30.65 and lambda was 14.5 and the ratio was 2.11. Last CBC was done on 06/01 which shows WBC count of 6.7, hemoglobin 14.8 and platelet count 193. Patient denies smoking or drinking. Family history is negative for any hematologic oncology problem. Past Medical History: Diagnosis Date Aortocoronary bypass status 04/15/2005 Calculus of ureter 02/09/2003 CERVICAL DISC DISPLACMNT 05/15/1999 Chronic systolic heart failure (HCC) 12/06/2021 Coronary artery disease involving coronary bypass graft of minto heart without angina pectoris 02/18/2022 CORONARY ATHEROSCLEROSIS OF UNSPECIFIED TYPE OF VESSEL, [place] OR GRAFT DM type 2, goal HbA1c < 8% ([facility]) 09/20/2009 Per Diabetes Taxonomy. ICD-10 update of inactive term Dyslipidemia, goal LDL below 70 11/01/2009 Per Lipid Taxonomy. History of nonmelanoma skin cancer 01/19/2018 recurrent BCC upper back 01/04 MGUS (monoclonal gammopathy of unknown significance) 10/23/202310/15 kappa IgA Obesity, morbid (more than 100 lbs over ideal weight or BMI > 40) ([facility]) 05/07/2010 Per Obesity Protocol, #19 ICD-10 update of inactive term Paroxysmal atrial tachycardia 12/02/202112/14 ER Current Outpatient Medications Medication Sig Dispense Refill ASPIRIN 81 MG OR TBEC 1 TABLET DAILY 30 0 ONETOUCH ULTRASOFT LANCETS MISC Use twice daily for type ll diabetes testing 1 Box Dosing Unit 11 Sacubitril-Valsartan 24-26 MG Oral Tablet (Entresto) TAKE ONE TABLET BY MOUTH TWICE DAILY 60 Tablet0 Metoprolol Succinate ER 50 MG Oral Tablet Extended Release 24 Hour (toPROL XL) TAKE ONE TABLET BY MOUTH EVERY MORNING (Patient taking differently: Take 1 Tablet by mouth every evening.) 90 Tablet 3 Sacubitril-Valsartan 24-26 MG Oral Tablet (Entresto) TAKE ONE TABLET BY MOUTH IN THE MORNING AND TAKE ONE TABLET BY MOUTH AT BEDTIME 180 Tablet 3 OneTouch Ultra In Vitro Strip (Glucose Blood) USE TO TEST TWO TIMES A DAY 200 Strip 3 Pioglitazone HCl 30 MG Oral Tablet (Actos) Take 1 Tablet by mouth in the morning. 100 Tablet 1 metFORMIN HCl ER 500 MG Oral Tablet Extended Release 24 Hour (Glucophage XR) Take 1 Tablet by mouthin the morning. 100 Tablet 0 Empagliflozin 10 MG Oral Tablet (Jardiance) Take 1 Tablet by mouth in the morning. 100 Tablet 0 Ezetimibe 10 [...] MOUTH IN THE MORNING 90 Tablet 3 No current facility-administered medications for this visit. Social History Socioeconomic History Marital status: Spouse name: Not on file Number of children: Not on file Years of education: Not on file Highest education level: Not on file Occupational History Occupation: retired-[employer] Employer: [employer] Tobacco Use Smoking status: Former Years: 13 Types: Cigarettes Start date: 11/23/1965 Quit date: 11/23/1978 Years since quittin.9 Smokeless tobacco: Former Tobacco comments: smoked ages [age] Vaping Use Vaping Use: Never used Substance and Sexual Activity Alcohol use: No Drug use: No Sexual activity: Not on file Comment: silva in [place] Other Topics Concern Not on file Social History Narrative Likes-time granddaughter, camps/rec w/her over summer She lives in [place] 14 yo ('22) 4 other granddaughters. Likes bowling 2x/ wk, [employer]. Social Determinants of Health Financial Resource Strain: Not on file Food Insecurity: No Food Insecurity (03/11/2023) Hunger Vital Sign Worried About Running Out of Food in the Last Year: Never true Ran Out of Food in the Last Year: Never true Transportation Needs: Not on file Physical Activity: Not on file Stress: Not on file Social Connections: Not on file Intimate Partner Violence: Not on file Housing Stability: Not on file Family History Problem Relation Age of Onset Diabetes Mother Diabetes Brother Mental Disorder Mother age 90- dementia REVIEW OF SYSTEMS: General: No Fever, chills, night sweats, or weight loss. HEENT: No change in visual acuity, blurred or double vision. No epistaxis, facial pain, nasal discharge or change in hearing. Denies dysphagia, no muscosal ulceration, or sores noted. Cardiovascular: No chest pain, LOPEZ, or palpitations Respiratory: No shortness of breath, cough, hemoptysis, or pleuritic chest pain Gastrointestinal: No abdominal pain, nausea, vomiting, diarrhea, rectal pain or bleeding Genitourinary: Denies Hematuria or dysuria Musculoskeletal: Stable back pain Skin: No skin rash or lesions noted Neurologic: No numbness, weakness, neuropathic pain or change in cognitive function Psychiatric: No vegetative signs of depression Endocrine: No symptoms of hypothyroidism or hyperglycemia Hematologic: No bleeding or lymph nodes noted As mentioned above, all other systems were reviewed in full and are unremarkable. Review of patient's allergies indicates: Allergen Reactions Lisinopril Nagging cough PHYSICAL EXAMINATION: General Appearance: Healthy appearing patient in no acute distress BP 117/76 (BP Site: Left Arm, BP Position: Sitting, BP Cuff Size: Regular) | Pulse 81 | Temp 36.9 C (98.4 F) | Ht 1.702 m (5' 7") | Wt 109.2 kg (240 lb 12.8 oz) | SpO2 93% | BMI 37.71 kg/m | BSA 2.27 m Vitals were reviewed. HEENT: No oral or pharyngeal masses, ulceration or thrush noted, no sinus tenderness. Neck is supple with no thyromegaly or JVD noted. Lymph Nodes: No lymphadenopathy noted in the occipital, pre and post auricular, cervical, supra andinfraclavicular, axillary, epitrochlear, inguinal, and popliteal region. Lungs/Thorax: Clear to auscultation, no accessory muscles of respiration being used. Heart: Regular rate and rhythm, normal S1, S2. Abdomen: Soft, nontender, bowel sounds present, no appreciable hepatosplenomegaly, no palpable masses Extremeties: Good pulses bilaterally, no peripheral edema. Skin: Normal skin tone with no rash, petechiae, ecchymosis noted. Musculoskeletal: No pain on palpation over bony prominence, no edema, no evidence of gout, no jointor bony deformity ASSESSMENT: 73-year-old with completed past medical history including coronary artery disease status post bypass grafting in 1999, history of congestive heart failure cardiomyopathy, atrial fibrillation, diabetes, hypertension, CKD and hyperlipidemia was referred with recent diagnosis of IgA kappa gammopathy. P anisa had blood test done for the evaluation of CKD. IgA level was elevated with mild increase in the kappa light chain with normal kappa and lambda ratio. Patient has IgA kappa gammopathy (MGUS). The reasons for kidney problem is multifactorial includinghistory of hypertension, diabetes, CHF, back pain and use of ibuprofen and medication like Lasix. Discussed with the patient in detail about the diagnosis reviewed all the available blood test result with him. He is a monoclonal gammopathy of undetermined significance and at this point the best option is to continue to monitor the patient clinically. He continues to be at risk for disease progre ssion. The risk progression is 1% per year. At this point the best option is to continue to monitorthe patient clinically and repeat his blood tests in 6 months. After detailed discussion he agreed proceed with requested blood test. PLAN: As above. He will return clinic for follow-up in 6 months with CBC, CMP and myeloma panel. The patient voiced understanding of all of the above. All questions and concerns were addressed in an apparently satisfactory manner. Brittny Ford MD (This note was completed using the dictation program Fluency Direct. As such, there may be misspellings, word substitutions, or other variations that should not change the essence of the clinical content of this encounter note. If there is need for further clarification, please direct questions to me.) documented in this encounter Nursing Notes * Jose Raul Faith, MED ASSIST - 11/03/2023 10:01 AM EST Patient identified by name and date of . Do you have any concerns about pain management for today's visit? No Living Will or Advance Directive for Health Care as noted on problem list. My [facility] is a way you can talk to your provider online through e-mail. Would you like to sign up? I can activate it for you? ALREADY ACTIVE BP 117/76 (BP Site: Left Arm, BP Position: Sitting, BP Cuff Size: Regular) | Pulse 81 | Temp 36.9 C (98.4 F) | Ht 1.702 m (5' 7") | Wt 109.2 kg (240 lb 12.8 oz) | SpO2 93% | BMI 37.71 kg/m | BSA 2.27 m Patient was instructed to not get up on the exam table/exam chair until directed and assisted by their provider; patient is to remain seated in the chair/ wheelchair/ exam table/ exam chair for fall prevention and safety reasons. Patient is aware to have assistance to step down off exam table/exam chair with personnel. Patient voiced full comprehension of instructions. documented in this encounter Plan of Treatment Upcoming Encounters Date Type Department Care Team (Late st Contact Info) Description 11/04/2023 11:00 AM EST Laboratory Laboratory, [facility] [address] [place] [phone] Noemi Pino [address] [place] [address] 01/14/2024 11:40 AM EST Office Visit Family Practice [facility] [address] [place] [address] Anselmo Junior MD [address] [place] [address] 04/27/2024 11:00 AM EDT Laboratory Laboratory, [facility] [address] [place] [phone] [facility]emi [facility]ino [facility] [place] [address] 05/04/2024 12:30 PM EDT Office Visit Hematology/Oncology Willie Casarez [place] [address] [place] [address] Brittny Ford MD [address] [place] [address] [address] 08/16/2024 3:00 PM EDT Office Visit Nephrology, Willie Casarez [address] [place] [address] [address] Lana Miranda MD [address] [facility] [place], [place] [address] Scheduled Orders Name Type Priority Associated Diagnoses Orde r Schedule CBC WITH WBC DIFFERENTIAL Lab Routine MGUS (monoclonal gammopathy of unknown significance) Expected: 05/09/2024, Expires: 09/19/2024 COMPREHENSIVE METABOLIC PANEL Lab Routine MGUS (monoclonal gammopathy of unknown significance) Expected: 05/09/2024, Expires: 09/19/2024 IMMUNOGLOBULIN QUANTITATIVE Lab Routine MGUS (monoclonal gammopathy of unknown significance) Expected: 05/09/2024, Expires: 09/19/2024 SERUM FREE LIGHT CHAINS Lab Routine MGUS (monoclonal gammopathy of unknown significance) Expected: 05/09/2024, Expires: 09/19/2024 SERUM PROTEIN ELECTROPHORESIS REFLEX PROFILE Lab Routine MGUS (monoclonal gammopathy of unknown significance) Expected: 05/09/2024, Expires: 09/19/2024 URINE IMMUNOFIXATION, BENCE TELLEZ PROTEIN, RANDOM URINE Lab Routine MGUS (monoclonal gammopathy of unknown significance) Expected: 05/09/2024, Expires: 09/19/2024 KAPPA/LAMBDA LIGHT CHAINS, FREE WITH RATIO, RANDOM URINE Lab Routine MGUS (monoclonal gammopathy of unknown significance) Expected: 05/09/2024, Expires: 09/19/2024 Scheduled Procedures Name Priority Associated Diagnoses Date/Ti [...] Occult Blood Test 10/21/2024 10/21/2023, 08/19 GFR 10/21/2024 10/21/2023, 11/0 04/2023, 01/05/2023, Additional history exists Colonoscopy 06/11/2026 06/11/2016, [...] this encounter Medical Devices Implanted Type Area Public Relations Studies Director Device Identifier Shelf Expiration Date Model / Serial / Lot Lens Intraoc 19.5 - [id number] - [id number] Implanted:Qty: 1 on 07/03/2020 by Rivera Merritt MD at OR [facility] Left: Eye [employer]USCH [employer] LOMB 02/20/2025 [id number] / [id number] / Lens Intraoc 19.5 - [id number] - [id number] Implanted:Qty: 1 on 07/10/2020 by Rivera Merritt MD at OR [facility] Right: Eye BAUSCH & LOMB 02/20/2025 [id number] / [id number] / [id number] documented as of this encounter Visit Diagnoses Diagnosis MGUS (monoclonal gammopathy of unknown significance)- Primary Monoclonal paraproteinemia documented in this encounter Advance Directives Documents on File Type Date Recorded Patient Account Resolution Analyst Expl anation Advance Directives and Living Will 07/24/2005 LIVING WILL Power of Business Intelligence Consultant 07/24/2005 [facility] POWER OF BUSINESS PROCESS MANAGER Care Teams Service Center Specialist Relationship Specialty Start Date End Date Anselmo Junior MD [address] [place] [address] PCP - General Family Medicine 08/03/17 documented as of this encounter
--- OUTSIDE RECORDS SUMMARY | 2024-04-24 11:37 | External Medical Summary | Summary of Care ---
Author Name Unknown Organization [facility] Address [address] [facility] [place] [address] Phone [phone] Care Team Providers Care Executive Administrative Asst Name Role Phone Anselmo Junior MD Primary Care Provider + Reason for Visit * Reason Comments Outpatient Testing Encounter Details Date Type Department Care Team (Late st Contact Info) Description 11/04/2023 11:00 AM EST Laboratory [facility], [facility] [address] [facility] [place] [phone] [facility] [address] [place] [address] Arrived Allergies Active Allergy Reactions Criticality Noted Date Comments Lisinopril 08/09/2010 Nagging cough documented as of this encounter (statuses as of 11/04/2023) Medications Medication Sig Dispensed Refills Start Date [...] goal of less than 8.0% ([facility]) USE TO TEST TWO TIMES A DAY 200 Strip 3 06/11/2023 4 Active Pioglitazone HCl 30 MG Oral Tablet (Actos)Indications:Ty pe 2 diabetes mellitus with hemoglobin A1c goal of less than 8.0% ([facility]) Take 1 Tablet by mouth in the morning. 100 Tablet 1 10/07/2023 Active metFORMIN HCl ER 500 MG Oral Tablet Extended Release 24 Hour (Glucophage XR)Indications:Type 2 diabetes mellitus with hemoglobin A1c goal of less than 8.0% ([facility]) Take 1 Tablet by mouth in the morning. 100 Tablet 0 10/07/2023 Active Empagliflozin 10 MG Oral Tablet (Jardiance)Indication s:Type 2 diabetes mellitus with hemoglobin A1c goal of less than 8.0% ([facility]) Take 1 Tablet by mouth [...] Oral Tablet (Xarelto)Indications: PAF (paroxysmal atrial fibrillation) ([facility]),Paroxysmal atrial tachycardia Take 1 Tablet by mouth daily with dinner. 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 CLEANING-LAD is widely patent with [...] Summer 2015 colon-tubular adenoma aftab 5y 2016 @[place]-daughter did AAA screen--was WNL per pt. (no actual records.) S/P CABG (coronary artery bypass graft) 04/15/20 05 documented as of this encounter (statuses as of 11/04/2023) Resolved Problems Problem Noted Date Diagnosed Date [...] DISPLACMNT 05/15/1999 Coronary artery disease invo lving [place] coronary artery of [place] heart without angina pectoris 02/18/2022 PURE HYPERCHOLESTEROLEM 10/23 Overview: Per Lipid Taxonomy. documented as of this encounter (statuses as of 11/04/2023) Immunizations Name Administration Dates Next Due COVID-19 [...] 11:40 AM EST Office Visit Family Practice [facility] [address] [place] [address] Anselmo Junior MD [address] [place] [address] 04/27/2024 11:00 AM EDT Laboratory Laboratory, [facility] [phone] Noemi Pino [facility] [address] [facility] [place] [address] 05/04/2024 12:30 PM EDT Office Visit Hematology/Oncology [facility] [address] [facility] [place] [address] Brittny Ford MD [address] [facility] [place] [address] 08/16/2024 3:00 PM EDT Office Visit Nephrology, [facility] [address] [facility] [place] [address] Lana Miranda MD [address] [facility] [place] [address] Scheduled Procedures Name Priority Associated Diagnoses Date/Ti [...] this encounter Medical Devices Implanted Type Area Group Leader Semiconductor Processing Device Identifier Shelf Expiration Date Model / Serial / Lot Lens Intraoc 19.5 - [id number] - [id number] Implanted:Qty: 1 on 07/03/2020 by Rivera Merritt MD at OR [facility] Left: Eye [employer] LOMB 02/20/2025 [id number] / [id number] / Lens Intraoc 19.5 - [id number] - [id number] Implanted:Qty: 1 on 07/10/2020 by Rivera Merritt MD at OR [facility] Right: Eye [employer]USCH [employer] LOMB 02/20/2025 [id number] / [id number] / [id number] documented as of this encounter Advance Directives Documents on File Type Date Recorded Patient Building Insulation Installer Expl anation Advance Directives and Living Will 07/24/2005 LIVING WILL Power of Dedicated Driver 07/24/2005 [facility] POWER OF SENIOR ARCHITECT Care Teams Executive Administrative Asst Relationship Specialty Start Date End Date Anselmo Junior MD [address] [place] [address] PCP - General Family Medicine 08/03/17 documented as of this encounter
--- OUTSIDE RECORDS SUMMARY | 2024-04-24 11:37 | External Medical Summary ---
Author Name Unknown Address Unknown Organization [facility] [address] [place] [address] Laboratory Report Ordering Provider Test Date Status STEFFANIE CORLEY 11/04/2023 10:57:11 Final Observation Date Value Abnormality Reference (Units ) Status BUN 11/04/2023 10:57:11 38 Above high normal 6-20 (mg/dL) Final Creatinine 11/04/2023 10:57:11 1.8 Above high normal 0.6-1.2 (mg/dL) Final Glomerular filtration rate/1.73 sq M.predicted [Volume Rate/Area] in Serum, Plasma or Blood by Creatinine-based formula (CKD-EPI) 11/04/2023 10:57:11 38 Below low normal >=60 (mL/min) Final eGFR is calculated based on the CKD-EPI 2020 equation SODIUM 11/04/2023 10:57:11 138 135-146 (m mol/L) Final Potassium 11/04/2023 10:57:11 5.1 3.5-5.1 (m mol/L) Final Cl 11/04/2023 10:57:11 103 98-107 (mm ol/L) Final CO2 11/04/2023 10:57:11 25 22-32 (mmo l/L) Final Anion gap 11/04/2023 10:57:11 10 7-15 (mmol /L) Final Glucose 11/04/2023 10:57:11 168 Above high normal 70 -120 (mg/dL) Final Calcium 11/04/2023 10:57:11 9.4 8.4-10.2 ( mg/dL) Final Performing Location [facility] [address] [place] [address]
--- OUTSIDE RECORDS SUMMARY | 2024-04-24 11:37 | External Medical Summary | Summary of Care ---
Author Name Unknown Organization [facility] Address [address] [place] [address] Phone [phone] Care Team Providers Care Public Service Officer Name Role Phone Anselmo Lawler MD Primary Care Provider + Reason for Visit * Reason Comments NEW PATIENT * Evaluate & Treat - Unlimited Visits (Within 30 days (routine)) - Authorized Specialty Diagnoses / Procedures Referred By Fco hidalgo Referred To Contact Nephrology Diagnoses MGUS (monoclonal gammopathy of unknown significance) Acute renal failure superimposed on stage 3b chronic kidney disease, unspecified acute renal failure type (HCC) Anselmo Lawler MD [address] [place] [address] Referral ID Status Reason Start Date Expiration Date Visits Requested Visits Authorized [id number] Authorized Specialty Services Required 10/23/[id number] Encounter Details Date Type Department Care Team (Late st Contact Info) Description 11/02/2023 1:00 PM EST Office Visit Nephrology, [facility] [address] [place] [address] Lana Miranda MD [address] [place] [address] Worsening renal function*; HTN, goal below 130/80; Abnormal plasma protein test Allergies Active Allergy Reactions Criticality Noted Date Comments Lisinopril 08/09/2010 Nagging cough documented as of this encounter (statuses as of 11/09/2023) Medications Medication Sig Dispensed Refills Start Date End Date Status ASPIRIN 81 MG OR TBECIndications:Coron [place] atherosclerosis 1 TABLET DAILY 30 0 08/08/2003 Active ONETOUCH ULTRASOFT LANCGERARDO MISCIndications:DM type 2, goal A1c below 7 [...] as of this encounter (statuses as of 11/09/2023) Active Problems Problem Noted Date Diagnosed Date [...] 08/14 FOB WNL 01/14 Cardiac cath: Severe [place] Vessel Disease. CLEANING-LAD is widely patent with [...] as of this encounter (statuses as of 11/09/2023) Resolved Problems Problem Noted Date Diagnosed Date [...] as of this encounter (statuses as of 11/09/2023) Immunizations Name Administration Dates Next Due COVID-19 [...] Sign Reading Time Taken Comments Blood Pressure 130/67 11/02/2023 12:54 PM EST Pulse 64 11/02/2023 12:54 PM EST Temperature 36.3 C (97.4 F) 11/02/2023 12:[address] Respiratory Rate - - Oxygen Saturation - - Inhaled Oxygen Concentration - - Weight 110.9 kg (244 lb 8 oz) 11/02/2023 12:54 P M EST Height 172.7 cm (5' 7.99") 11/02/2023 12:[address] Body Mass Index 37.18 11/02/2023 12:54 PM EST documented in this encounter Patient Instructions * Patient Instructions* Lana Miranda MD - 11/02/2023 1:44 PM EST -no medication changes today -labs w/in the week blood and urine; after that get labs before December 2023 appt w/ Dr Rodriguez -avoid medicines like aleve, advil, ibuprofen, aspirin more than 81 mg daily and other NSAIDS whichare not good for kidney patients. Take only tylenol (acetaminophen) up to 3000 mg daily as needed for pain or as directed by your primary care provider. -keep working at getting active again -increase WATER intake to at least 48 oz most days documented in this encounter Progress Notes * Lana Miranda MD - 11/02/2023 1:07 PM EST NEPHROLOGY CLINIC NOTE [facility]phrology[facility] [facility] [address] 11/02/2023, 1:07 PM Patient Name: Emerson Barraza Emerson Barraza is a 73 year old male being seen in consultation today in Nephrology clinic, at the request of Anselmo Lawler MD for MGUS. Past Medical History: Diagnosis Date Aortocoronary bypass status 04/15/2005 Calculus of ureter 02/09/2003 CERVICAL DISC DISPLACMNT 05/15/1999 Chronic systolic heart failure (HCC) 12/06/2021 Coronary artery disease involving coronary bypass graft of [place] heart without angina pectoris 02/18/2022 CORONARY ATHEROSCLEROSIS OF UNSPECIFIED TYPE OF VESSEL, [place] OR GRAFT DM type 2, goal HbA1c < 8% ([facility]) 09/20/2009 Per Diabetes Taxonomy. ICD-10 update of inactive term Dyslipidemia, goal LDL below 70 11/01/2009 Per Lipid Taxonomy. History of nonmelanoma skin cancer 01/19/2018 recurrent BCC upper back 01/04 MGUS (monoclonal gammopathy of unknown significance) 10/23/202310/15 kappa IgA Obesity, morbid (more than 100 lbs over ideal weight or BMI > 40) ([facility]) 05/07/2010 Per Obesity Protocol, #19 ICD-10 update of inactive term Paroxysmal atrial tachycardia 12/02/202112/14 ER Patient Active Problem List Diagnosis Code S/P CABG (coronary artery bypass graft) Z95.1 Well adult exam Z00.00 History of nonmelanoma skin cancer Z85.828 Type 2 diabetes mellitus with hemoglobin A1c goal of less than 8.0% ([facility]) E11.9 Dyslipidemia, goal LDL below 100 E78.5 Paroxysmal atrial tachycardia I47.19 Chronic systolic heart failure ([facility]) I50.22 Coronary artery disease involving coronary bypass graft of [place] heart without angina pectoris I25.810 Obesity, morbid (more than 100 lbs over ideal weight or BMI > 40) ([facility]) E66.01 Hypertensive heart disease with chronic systolic congestive heart failure ([facility]) I11.0, I50.22 MGUS (monoclonal gammopathy of unknown significance) D47.2 HPI: 73 year old male presents to establish care for MGUS. PMH includes DM2 since at least 1999, HTN, CAD s/p CABG, combined chronic systolic/diastolic HF w/ EF improved w/ GDMT to 50%; paroxysmal atrial tachycardia, Class 2 obesity Isolated/ elevated kappa FLC noted on proteinuria w/u, prompting referral. Heme onc appt tomorrow. Home blood pressure checks: upper arm cuff; follows w/ PCP and cardiology on this and checked for accuracy History of stones: 1982 most recently Family history of CKD or ESRD: N NSAID use: yes 09/2023 x few weeks daily Herbals/supplements: N Last hospital stay: ER visit August for SI pain [facility] Had R SI joint out of place [...] also has coffee, milk, grape juice, lemonade. REVIEW OF SYSTEMS: No F/C, unintended wt loss or gain, energy level and appetite acceptable No acute visual changes or IRVING No sinus, dental, throat pain No neck lumps/bumps or stiffness No palpitations, angina, orthopnea, LE edema No cough, wheeze, or dyspnea No N/V/D/C/abd pain No dysuria, hematuria, nocturia >2X; no new or worrisome voiding symptoms No rash or generalized itch No focal joint/muscle aches No inappropriate bleeding or bruising No tremor, seizures, focal or global weakness or paresthesias No orthostatic or presyncopal symptoms; no falls Current Outpatient Medications Medication Sig Dispense Refill ASPIRIN 81 MG OR TBEC 1 TABLET DAILY 30 0 ONETOUCH ULTRASOFT LANCETS MISC Use twice daily for type ll diabetes testing 1 Box Dosing Unit 11 Metoprolol Succinate ER 50 MG Oral Tablet [...] MOUTH IN THE MORNING 90 Tablet 3 Sacubitril-Valsartan 24-26 MG Oral Tablet (Entresto) TAKE ONE TABLET BY MOUTH TWICE DAILY 60 Tablet0 No current facility-administered medications for this visit. 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 Likes bowling 2x/ wk, [employer]. Social Determinants of Health Financial Resource [...] Brother Mental Disorder Mother age 90- dementia Family Status Relation Status Mo (Not Specified) Bro (Not Specified) PHYSICAL EXAMINATION: BP Readings from Last 6 Encounters: 11/03/23 117/76 11/02/23 130/67 10/21/23 122/74 10/07/23 120/66 03/11/23 124/72 01/12/23 128/76 Wt Readings from Last 6 Encounters: 11/03/23 109.2 kg (240 lb 12.8 oz) 11/02/23 110.9 kg (244 lb 8 oz) 10/21/23 107.5 kg (237 lb) 10/07/23 108.6 kg (239 lb 8 oz) 03/11/23 108.5 kg (239 lb 3 oz) 01/12/23 108.2 kg (238 lb 8 oz) Pulse Readings from Last 6 Encounters: 11/03/23 81 11/02/23 64 10/21/23 72 10/07/23 71 03/11/23 85 01/12/23 76 NAD, oriented x 3, obese/large framed, ambulatory and on table w/o asst Normocephalic, atraumatic, eomi nonicteric sclerae MMM Supple neck RRR w/o m/g/r; trace BLE ankle edema CTAB w/ reduced air mvt NT abd, +BS, soft No CVA TTP, no diaper or mckay No cyanosis or clubbing No rash No tremor, focal or global weakness; fluent speech excellent historian LABS: Recent Labs Units 11/04/23 1057 10/21/23 0914 09/28/23 1155 01/05/23 1106 SODIUM - [facility] mmol/L 138 138 143 141 POTASSIUM - [facility] mmol/L 5.1 4.4 5.0 5.4* CHLORIDE - [facility] mmol/L 103 104 109* 104 CO2 - [facility] mmol/L 25 22 20* 27 BUN - [facility] mg/dL 38* 30* 38* 21* CREATININE - [facility] mg/dL 1.8* 1.6* 1.9* 1.3* ESTIMATED GLOMERULAR FILTRATION RATE - [facility] mL/min 38* 45* 37* 61 Latest Ref Rng 02/06/2020 08/06/2020 02/04/2021 11/30/2021 12/10/2021 01/01/2022 01/06/2022 NEPH-FLOW Cr 0.6 - 1.2 mg/dL 1.0 1.0 1.1 1.33 (E) 1.5 (H) 1.5 (H) 1.5 (H) eGFR >=60 mL/min 64.3 53.0 (E) 48 (L) 49 (L) 50 (L) eGFR >60 >60.0 >60.0 K 3.5 - 5.1 mmol/L 5.3 (H) 5.3 (H) 5.2 (H) 4.6 (E) 5.1 5.4 (H) 4.9 Latest Ref Rng 02/06/2022 01/05/2023 09/28/2023 10/21/2023 NEPH-FLOW Cr 0.6 - 1.2 mg/dL 1.3 (H) 1.3 (H) 1.9 (H) 1.6 (H) eGFR >=60 mL/min 59 (L) 61 37 (L) 45 (L) eGFR >60 K 3.5 - 5.1 mmol/L 5.0 5.4 (H) 5.0 4.4 Recent Labs Units 01/06/22 0910 11/30/21 0000 HGB - [facility] g/dL 14.8 -- HEMOGLOBIN-OUTSIDE LAB G/DL -- 13.4* Recent Labs Units 11/04/23 1057 10/21/23 0914 09/28/23 1155 01/05/23 1106 02/06/22 1118 01/06/22 0858 CALCIUM - [facility] mg/dL 9.4 9.6 9.3 9.6 < > 9.2 PHOSPHORUS - [facility] mg/dL -- -- -- -- -- 3.1 < > = values in this interval not displayed. Recent Labs Units 09/28/23 1155 01/05/23 1106 09/11/22 1107 02/06/22 1118 HEMOGLOBIN A1C - [facility] % 8.6* 8.2* 7.3* 7.7* Recent Labs Units 11/04/23 1107 10/21/23 0918 01/05/23 1111 02/06/22 1118 ALBUMIN/CREATININE RATIO, HIDE mg/g Creat -- -- -- Uninterpretable Albumin/Creatinine ratio due to very low albumin and creatinine values. ALBUMIN / CREATININE RATIO, URINE - [facility] mg/g Creat -- 17 <22 -- PROTEIN/ CREATININE RATIO, URINE - [facility] mg/g <143 -- -- -- Latest Reference Range & Units 01/06/22 08:58 09/28/23 11:55 Albumin 3.8 - 5.0 g/dL 4.1 4.1 AST 10 - 50 U/L 16 ALT 10 - 50 U/L 14 Alkaline Phosphatase 35 - 130 U/L 79 Bilirubin, Total <=1.2 mg/dL 0.3 Latest Reference Range & Units 10/21/23 09:14 Albumin 3.30 - 4.40 g/dL 3.52 Alpha-1 Globulin 0.10 - 0.30 g/dL 0.18 Alpha-2 Globulin 0.60 - 1.00 g/dL 1.02 (H) Beta-Globulin 0.80 - 1.30 g/dL 0.96 Gamma-Globulin 0.70 - 1.70 g/dL 1.03 Latest Reference Range & Units 10/21/23 09:14 IgA 70 - 400 mg/dL 593 (H) IgG 700 - 1,600 mg/dL 672 (L) IgM 40 - 230 mg/dL 31 (L) [place] Free Light Chains, Serum 3.30 - 19.40 mg/L 30.65 (H) [place] Lambda Free Light Chains Ratio 0.26 - 1.65 2.11 (H) Lambda Free Light Chains, Serum 5.71 - 26.30 mg/L 14.50 No recent UA PERTINENT IMAGING INFO: Renal u/s 10/27/23 RIGHT KIDNEY: 11.5 cm x 6.4 cm x 5.1 cm. Mildly increased renal cortical echogenicity. No hydronephrosis, shadowing calculi, or mass. LEFT KIDNEY: 12.4 cm x 5.8 cm x 5.7 cm. Mildly increased renal cortical echogenicity. A lower pole parapelvic cyst versus is prominent calyx measures 1.2 x 1.0 x 0.9 cm. No hydronephrosis, shadowing calculi, or mass. BLADDER: Partially filled. No focal bladder lesion is identified. AORTA: Visualized portions are normal in caliber. The proximal abdominal aorta is not visualized due to overlying bowel gas. IMPRESSION Mildly increased renal cortical echogenicity, which may be seen in the setting of medical renal disease. No hydronephrosis. ASSESSMENT AND PLAN: Worsening renal function (Primary) - URINALYSIS WITH MICROSCOPIC EXAM - BASIC METABOLIC PANEL - PROTEIN/ CREATININE RATIO, URINE - BASIC METABOLIC PANEL; Future; Expected date: 12/03/2023 HTN, goal below 130/80 Abnormal plasma protein test Follow-up: Return in about 11 weeks (around 01/18/2024). | Check-out note: MD only waitlist Worsening renal function w/ eGFR about 50 or 60 in 2021 and decline to 3B eGFR range abruptly last month. Not likely a role for entresto in decline since he's been on stable dose since prior to November 2021; doubt cardiorenal syndrome as his EF has improved since November 2021 setback in cardiac function. Did have course of nsaids for mgt of hip pain -update labs -continue SGLT2i -suspect from ibuprofen use Aug/Sep even under careful supervision; off of ibuprofen now BP w/ acceptable control -continue toprol, entresto and SGLT2i (SGLT2i though not technically antihypertensive is natriuretic and helps improve fluid status/BP) While he has an elevation of kappa light chains in serum as well as an abnormal ratio of serum FLC,these values are in a range where could be explained by his renal dysfunction. W/ normal serum albumin, no albuminuria, renal impact of these findings lower. Likely needs spep/ sife but defer to hemewhom he sees soon to orders -update urine tests and get PCR Patient Instructions -no medication changes today -labs w/in the week blood and urine; after that get labs before December 2023 appt w/ Dr Rodriguez -avoid medicines like aleve, advil, ibuprofen, aspirin more than 81 mg daily and other NSAIDS whichare not good for kidney patients. Take only tylenol (acetaminophen) up to 3000 mg daily as needed for pain or as directed by your primary care provider. -keep working at getting active again -increase WATER intake to at least 48 oz most days Lana Miranda MD CC: Ref: ANSELMO LAWLER[[id number]] [address] [place] [address] (office) [phone] (fax) PCP: ANSELMO LAWLER [address] [place] [address] [phone] This chart was completed in part utilizing [employer] Speech Voice Recognition Software. Randomword insertions, pronoun errors, and incomplete sentences are an occasional consequence of this system due to software limitations, and ambient noise. Any questions or concerns about the content, text, or information contained within the body of this dictation should be directly addressed to the provider for clarification. documented in this encounter Nursing Notes * Jennifer Bolivar LPN - 11/02/2023 12:50 PM EST New patient- Referred by Dr Lawler for "Elevated monoclonal IgA kappa--(workup done as part of elev Cr). Referring to heme as well." No recent illness or hospitalizations. Pt stated no leg swelling. documented in this encounter Plan of Treatment Upcoming Encounters Date Type Department Care Team (Late st Contact Info) Description 01/14/2024 11:40 AM EST Office Visit Family Practice [facility] [address] [place] [address] Anselmo Lawler MD [address] [place] [address] 04/27/2024 11:00 AM EDT Laboratory Laboratory, [facility] [address] [place] [id number] Noemi Pino [facility] [address] [place] [address] 05/04/2024 12:30 PM EDT Office Visit Hematology/Oncology [facility] [place] [address] [facility] [place] [address] Brittny Ford MD [address] [facility] [place] [address] 08/16/2024 3:00 PM EDT Office Visit Nephrology, [facility] [address] [facility] [place] [address] Lana Miranda MD [address] 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 Trades Worker Device Identifier Shelf Expiration Date Model / Serial / Lot Lens Intraoc 19.5 - [id number] - [id number] Implanted:Qty: 1 on 07/03/2020 by Rivera Merritt MD at OR [facility] Left: Eye [employer] 02/20/2025 [id number] / [id number] / Lens Intraoc 19.5 - [id number] - [id number] Implanted:Qty: 1 on 07/10/2020 by Rivera Merritt MD at OR [facility] Right: Eye [employer] 02/20/2025 [id number] / [id number] / [id number] documented as of this encounter Procedures Procedure Name Priority Date/Time Associated Diagnosis Comments PROTEIN/ CREATININE RATIO, URINE Routine 11/04/2023 11:07 AM EST Worsening renal function URINALYSIS WITH MICROSCOPIC EXAM Routine 11/04/2023 11:07 AM EST Worsening renal function BASIC METABOLIC PANEL Routine 11/04/2023 10:57 AM EST Worsening renal function documented in this encounter Results * PROTEIN/ CREATININE RATIO, URINE (11/04/2023 11:07 AM EST) Protein/ Creatinine Ratio, Urine <143 <150 mg/g 11/04/2023 7:34 PM EST [facility] Protein, Random Urine <4 mg/dL 11/04/2023 7:34 PM EST [facility] Creatinine, Random Urine 28 mg/dL 11/04/2023 7:34 PM EST [facility] Urine Non-blood Collection / Unknown 11/04/2023 11:07 AM EST 11/04/2023 11:07 AM EST Narrative [facility] - 11/04/2023 7:34 PM EST Normal: <150 mg/g creatinine High: 150-500 mg/g creatinine Very High: >500 mg/g creatinine Nephrotic: >3000 mg/g creatinine Lana Miranda MD LAB URINE ORDERAB LES [facility] [address] [place] [address] * (ABNORMAL) URINALYSIS WITH MICROSCOPIC EXAM (11/04/2023 11:07 AM EST) Color, Urine Colorless Colorless, Light Yellow, Yellow, Dark Yellow 11/04/2023 6:46 PM EST [facility] Clarity, Urine Clear Clear 11/04/2023 6:46 PM EST [facility] Glucose, Urine >=1000(A) Negative mg/dL 11/04/2023 6:46 PM EST LABORATORY C Bilirubin, Urine Negative Negative 11/04/2023 6:46 PM EST [facility] Ketone, Urine Negative Negative mg/dL 11/04/2023 6:46 PM EST [facility] Specific [place], Urine 1.010 1.003 - 1.030 11/04/2023 6:46 PM EST [facility] Blood, Urine Negative Negative 11/04/2023 6:46 PM EST [facility] pH, Urine 6.0 5.0 - 7.5 Units 11/04/2023 6:46 PM EST [facility] Protein, Urine Negative Negative mg/dL 11/04/2023 6:46 PM EST [facility] Urobilinogen, Urine Normal Normal mg/dL 11/04/2023 6:46 PM EST [facility] Nitrite, Urine Negative Negative 11/04/2023 6:46 PM EST [facility] Esterase, Urine Negative Negative 11/04/2023 6:46 PM EST [facility] RBC, Urine 0-2 0 - 2 /HPF 11/04/2023 6:46 PM EST [facility] WBC, Urine 0-2 0 - 2 /HPF 11/04/2023 6:46 PM EST [facility] Bacteria, Urine 0-25 0 - 25 /HPF 11/04/2023 6:46 PM EST [facility] Urine Urine specimen obtained by clean catch procedure / Unknown Non-blood Collection / Unknown 11/04/2023 11:07 AM EST 11/04/2023 11:07 AM EST Lana Miranda MD LAB URINE ORDERAB LES [facility] [address] [place] [address] * (ABNORMAL) BASIC METABOLIC PANEL (11/04/2023 10:57 AM EST) BUN 38(H) 6 - 20 mg/dL 11/04/2023 12:16 PM EST [facility] Creatinine 1.8(H) 0.6 - 1.2 mg/dL 11/04/2023 12:16 PM EST [facility] Estimated Glomerular Filtration Rate 38(L) >=60 mL/min 11/04/2023 12:16 PM EST [facility] Comment:eGFR is calculated b ased on the CKD-EPI 2020 equation Sodium 138 135 - 146 mmol/L 11/04/2023 12:16 PM EST [facility] [place] [facility] Potassium 5.1 3.5 - 5.1 mmol/L 11/04/2023 12:16 PM EST [facility] [place] Chloride 103 98 - 107 mmol/L 11/04/2023 12:16 PM EST [facility] [place] CO2 25 22 - 32 mmol/L 11/04/2023 12:16 PM EST [facility] [place] [facility] Anion Gap 10 7 - 15 mmol/L 11/04/2023 12:16 PM EST [facility] [place] [facility] Glucose 168(H) 70 - 120 mg/dL 11/04/2023 12:16 PM EST [facility] [place] [facility] Calcium 9.4 8.4 - 10.2 mg/dL 11/04/2023 12:16 PM EST [facility] Blood Venous blood specimen / Unknown Venipuncture / Unknown 11/04/2023 10:57 AM EST 11/04/2023 10:57 AM EST Lana Miranda MD LAB BLOOD ORDERAB LES [facility] [address] [place] [address] documented in this encounter Visit Diagnoses Diagnosis Worsening renal function- Primary HTN, goal below 130/80 Unspecified essential hypertension Abnormal plasma protein test Other nonspecific findings on examination of blood documented in this encounter Advance Directives Documents on File Type Date Recorded Patient Trace Clerk Expl anation Advance Directives and Living Will 07/24/2005 LIVING WILL Power of Jeep Driver 07/24/2005 [facility] P[facility] OF [employer]SOL[employer] Care Teams Public Service Officer Relationship Specialty Start Date End Date Anselmo Lawler MD [address] [place] [address] PCP - General Family Medicine 08/03/17 documented as of this encounter
[2024-04-24] MEDS ORDERED: SODIUM CHLORIDE 0.9% 250 ML IV PRN ×2 (11:49→12:30)
--- NOTE | 2024-04-24 11:55 | Emergency Department Note ---
History of Present Illness General Chief complaint: Cardiac Assessment Stated complaint: SOB,TACHY,DIZZY,HX CARDIAC Time Seen by Provider: 04/24/24 11:42 Source: patient, family ( was at the bedside), RN notes reviewed and old records reviewed (09/30/22-discharge summary from when the patient was in the hospital for tachycardia and CHF) Mode of arrival: ambulatory Limitations: no limitations History of Present Illness This patient is 73-year-old male who has a history of coronary artery disease/A- fib and diabetes comes in after feeling dizzy and short of breath off and on for the last week or 2. No change in medications has been eating and drinking is normal no chest pain he feels better at rest. No rectal pain or trauma he has had some blood in his stool the last 2 days he says it been maroon and has been mixed within the stool he had 1 bowel movement today and 2 yesterday. He is on Xarelto. He feels his heartbeat is fast when he exerts himself he is a decreased energy. no focal numbness or weakness. no fever . no cough no headache. No nausea vomiting or abdominal pain. Home Medications Medication Instructions Recorded Confirmed Type aspirin 81 mg tablet,delayed 81 mg PO DAILY 08/08/23 04/24/24 History release empagliflozin 10 mg tablet 10 mg PO QAM 08/08/23 04/24/24 History (Jardiance) ezetimibe 10 mg tablet (Zetia) 10 mg PO DAILY 08/08/23 04/24/24 History furosemide 40 mg tablet (Lasix) 40 mg PO .4DAYS WEEK 08/08/23 04/24/24 History metformin 500 mg tablet,extended 500 mg PO QAM 08/08/23 04/24/24 History release 24 hr metoprolol succinate 50 mg 50 mg PO QPM 08/08/23 04/24/24 History tablet,extended release 24 hr rivaroxaban 20 mg tablet (Xarelto) 20 mg PO PM 08/08/23 04/24/24 History sacubitril 24 mg-valsartan 26 mg 1 tab PO BID 08/08/23 04/24/24 History tablet simvastatin 80 mg tablet 80 mg PO DAILY 08/08/23 04/24/24 History metoprolol succinate 100 mg 100 mg PO DAILY 04/24/24 04/24/24 History tablet,extended release 24 hr pioglitazone 30 mg tablet 30 mg PO DAILY 04/24/24 04/24/24 History Allergies Allergy/AdvReac Type Severity Reaction Status Date / Time lisinopril Allergy Intermediate DRY Verified 08/08/23 02:55 CONSISTENT COUGH Past Med/Surg History Problem List (Updated 04/24/24 @ 16:06 by Dwaine Ortega MD) Anticoagulant long-term use (Acute) Elevated troponin (Acute) Elevated troponin Demand ischemia Symptomatic anemia Weakness (Acute) Acute GI bleeding (Acute) Acute heart failure with reduced ejection fraction and diastolic dysfunction Atrial tachycardia (Acute) HTN (hypertension) DVT prophylaxis Acute CHF (Acute) Tachycardia RBBB (right bundle branch block with left anterior fascicular block) Medical History CKD (chronic kidney disease) stage 3, GFR 30-59 ml/min Paroxysmal atrial fibrillation DM type 2 (diabetes mellitus, type 2) CAD (coronary artery disease) Dyslipidemia Kidney stone on left side Surgical History H/O shoulder surgery H/O neck surgery S/P CABG x 3 Family History Brother Diabetes Mother Diabetes Social History Smoking Status: Never smoker Second Hand Exposure: No; Do You Dip or Chew Tobacco: No; Hx Alcohol Use: No Hx Substance Use: No Preferred Language: Cypriot Communication Ability: Effective Communication Ability Comment: Not applicable Tool Room Attendant Required: No Beliefs That Will Affect Care: None marital status: Current Living Situation: Spouse How many Children do You have: 3 Feels Safe at Home: Yes Safety Concerns: Feels Safe At This Time Assistive Devices: None Review of Systems A total of 10 systems reviewed and were otherwise negative Physical Exam Vital Signs Vital Signs - 24 hr 04/24/24 11:37 04/24/24 12:21 04/24/24 12:23 Temperature 36.8 C Temperature Source Temporal Artery Scan Pulse Rate 78 80 Respiratory Rate 18 18 Respiratory Effort / Characteristics SOB on Exertion Respiratory Pattern Regular Blood Pressure 102/60 Blood Pressure Mean 74 Pulse Oximetry 95 95 96 Oxygen Delivery Method Room Air Room Air Room Air Sepsis Recent Fever Within 48 Hours No Sepsis New/Unexplained Change in Mental Status No Sepsis Action Taken by Nursing No Action Required 04/24/24 12:24 Temperature Temperature Source Pulse Rate 85 Respiratory Rate 18 Respiratory Effort / Characteristics Respiratory Pattern Blood Pressure Blood Pressure Mean Pulse Oximetry 96 Oxygen Delivery Method Sepsis Recent Fever Within 48 Hours Sepsis New/Unexplained Change in Mental Status Sepsis Action Taken by Nursing General: Well developed well nourished, pale older male who appears in no acute distress, breathing comfortably on room air. Normal speech HEENT: Normal cephalic atraumatic. Pupils are equal round and reactive to light. Extraocular movements are intact. Oropharynx is pink with moist mucous membranes. No swelling of the mouth lips or tongue. Neck: Supple with a midline trachea. No meningeal signs or stiffness, no JVD or bruits. No Stridor. Chest: Clear to auscultation bilaterally. No wheezes or rhonchi. No increased work of breathing. Heart: Regular rate and rhythm without murmurs or gallops. Abdomen: Soft nontender, nondistended without rebound guarding or rigidity. Rectal: He has maroon stool which was guaiac positive. No external lesions seen Extremities: No cyanosis clubbing or edema. No calf tenderness or assymetry Spine/Back. Non tender to palpation. No CVA tenderness Skin: Good turgor without rashes. Neurologic exam: Cranial nerves two through 12 are intact. Motor and sensation are intact and symmetrical throughout. Course Administered Medications Pantoprazole Sodium 40 mg/ (Dextrose) 100 mls @ 20 mls/hr IV Q5H [facility] Stop: 05/24/24 13:19 Last Admin: 04/24/24 13:48 Dose: 8 mg/hr, 20 mls/hr Documented By: SONNY Discontinued Medications Pantoprazole Sodium 80 mg/ (Dextrose) 120 mls @ 480 mls/hr IV NOW ONE Stop: 04/24/24 13:14 Last Infusion: 04/24/24 13:45 Dose: Infused Documented By: Admin: 04/24/24 13:20 Dose: 480 mls/hr Documented By: SONNY Critical Care Time Critical Care Time: Yes Total Critical Care Time: 35 Due to the patient's GI bleed, significant anemia and's EKG changes symptomatic anemia, need for transfusion, frequent reassessment and consultations, I have personally spent greater than 35 minutes of critical care time in the direct management of this patient. This includes bedside care, interpretation of diagnostic studies, and testing, discussion with consultants, patient, and family members, and other required patient management activities. This 35 minutes is in excess of all separately billable procedures. Medical Decision Making Differential Diagnosis GI bleed, arrhythmia, acute coronary syndrome, infection, electrolyte or metabolic abnormality Medical Records Attestation: I reviewed the patient's medical records. Home Medications Current Medication List: was personally reviewed by me Laboratory Data Attestation: I reviewed the patient's lab results. 04/24/24 12:02 04/24/24 12:02 Lab Results 04/24/24 04/24/24 Range/Units 12:02 12:29 WBC 5.25 (4.8-10.8) K/ul RBC 2.93 L (4.70-6.10) M/uL Hgb 7.8 L (14.0-18.0) g/dl Hct 24.6 L (42.0-52.0) % MCV 84.0 (80.0-100.0) fL MCH 26.6 (25.0-34.0) pg MCHC 31.7 L (32.0-36.0) g/dL RDW Std Deviation 46.0 (36.4-46.3) fL RDW Coeff of Eleuterio 15.0 H (11.5-14.5) % Plt Count 230 (130-400) K/uL MPV 9.2 L (9.4-12.4) fL Immature Gran % (Auto) 0.2 % Neut % (Auto) 68.7 % Lymph % (Auto) 18.7 % Dickson % (Auto) 9.1 % Eos % (Auto) 2.3 % Baso % (Auto) 1.0 % Neut # (Auto) 3.61 (1.40-6.50) K/uL Lymph # (Auto) 0.98 L (1.20-3.40) K/uL Dickson # (Auto) 0.48 (0.11-0.59) K/uL Eos # (Auto) 0.12 (0.00-0.50) K/uL Baso # (Auto) 0.05 (0.00-0.20) K/uL Immature Gran # (Auto) 0.01 (0.01-0.20) K/uL Polychromasia 1+ PT 13.5 H (9.0-12.0) Seconds INR 1.3 H (0.9-1.1) APTT 27 (21-31) Seconds PTT Ratio 1.0 Sodium 137 (136-145) mmol/L Potassium 4.5 (3.5-5.1) mmol/L Chloride 107 (98-107) mmol/L Carbon Dioxide 21 (21-32) mmol/L Anion Gap 9 (3-11) BUN 40 H (6-23) mg/dl Creatinine 1.97 H (0.6-1.4) mg/dl Est Cr Clr Drug Dosing 40.7 ml/min Est GFR ( Amer) 37.7 ml/min Est GFR (Non-Af Amer) 32.5 ml/min BUN/Creatinine Ratio 20.3 H (10-20) Glucose 152 H (70-99(Fasting)) mg/dl Calcium 9.0 (8.6-10.3) mg/dl Iron 25 L (35-175) mcg/dl TIBC 466 H (250-450) mcg/dl Unsaturated IBC 441 H (155-355) mcg/dl Transferrin % Sat 5 L (20-50) % Total Bilirubin 0.5 (0.2-1.0) mg/dl AST 13 (13-39) U/L ALT 10 (7-52) U/L Alkaline Phosphatase 50 (34-104) U/L Troponin I High Sens 81.0 H* (0-20) pg/ml Total Protein 6.8 (6.0-8.3) gm/dl Albumin 4.1 (3.4-5.0) gm/dl Globulin 2.7 (2.5-4.0) gm/dl Albumin/Globulin Ratio 1.5 (0.9-2) Lipase 60 (11-82) U/L Vitamin B12 451 (180-914) pg/ml Folate 13.12 (>5.38) ng/ml Blood Type O Positive Blood Type Recheck O Positive Antibody Screen NEGATIVE Crossmatch See Detail Imaging Data Attestation: I personally reviewed and interpreted this imaging study as follows: My Impression: Chest x-rayno acute infiltrate, failure, pneumothorax seen Radiologist's Impression: Chest X-Ray 04/24/24 11:42 XR chest 1V not portable CLINICAL HISTORY: Chest pain, nonspecific TECHNIQUE: Single frontal radiograph of the chest was obtained. Comparison: Comparison is made to chest radiograph 12/01/2021 FINDINGS: Median sternotomy wires are unchanged. Cardiomegaly is noted. The aortic arch is calcified. Vascular prominence is decreased from the prior exam. No evidence of pleural effusion or pneumothorax. IMPRESSION: No acute chest disease. Cardiomegaly is noted. ACT 112: Negative or not required by law. Electronically signed by: Henok Queen M.D. 04/24/2024 12:54 PM ECG Data Indication: + palpitations and + weakness Rate (beats per minute): 76 Rhythm: + normal sinus ECG Intervals/blocks: + Right Bundle branch block ECG [place]: + Normal ECG ST segments: + T-wave inversions (Lateral) and + Nonspecific ST abnormalities ECG Findings: + Other Comparison ECG Date: from (12/03/2021) Change: the following changes noted (T wave inversions are now present) MDM Narrative This patient comes in as scribed above I saw in triage to help expedite his care. He denies any chest pain he feels well at present but over the last week or so he has had feeling weakness and dizziness with moving he also had some blood in stool last 2 days and is on Xarelto, I am concerned he could have a GI bleed I did order blood work as well as a type and cross. IV access was ordered and chest x-ray and EKG were also ordered. He was placed on a cardiac rn was reassessed frequently. I did a rectal exam and he has maroon stool his hemoglobin came back at 7.8 this is significantly down from his baseline of 13, I think this is likely causing his symptoms. His EKG does have some changes laterally which are likely from demand. I do think he needs a transfusion. I talked to the patient at length as well as his . He freely consented I explained the risks and benefits I had ordered blood to be typed and crossed initially but ordered 1 unit to be transfused. His last dose of Xarelto was yesterday evening so it is unlikely any significant reversal will help at this point. I did order a second IV. His troponin is elevated, he does not have chest pain with this but does have some potential EKG changes I think this is likely from his anemia/demand. I have just discussed the case at length [facility] the [facility] for further treatment and evaluation. A second IV was established and he is been ordered to be transfused. [facility] Continuous cardiac monitoring: Orders placed in EMR for continuous cardiac rn: Upon my evaluation patient noted to be normal sinus rhythm with a rate of 85 Impression & Plan Acute GI bleeding, Weakness, Elevated troponin, Anticoagulant long-term use Discharge Plan Visit Data Chief Complaint: Cardiac Assessment Stated Complaint: SOB,TACHY,DIZZY,HX CARDIAC ED Provider: Dwaine Ortega Discharge Problem: Acute GI bleeding, Weakness, Elevated troponin, Anticoagulant long-term use Discharge Instructions Interventions: ED Discharge Assessment Last Done: 04/24/24 15:14
[2024-04-24 12:18] LABS: Basophils # (auto) 0.05 K/uL (0.00-0.20); Eosinophils # (auto) 0.12 K/uL (0.00-0.50); Eosinophils % (auto) 2.3 %; Hematocrit (blood only) 24.6 % (42.0-52.0); Hemoglobin 7.8 g/dl (14.0-18.0); Immature Granulocytes # (auto) 0.01 K/uL (0.01-0.20); Immature Granulocytes % (auto) 0.2 %; Lymphocytes # (auto) 0.98 K/uL (1.20-3.40); Lymphocytes % (auto) 18.7 %; Mean Corpuscular Hemoglobin 26.6 pg (25.0-34.0); Mean Corpuscular Hgb Conc 31.7 g/dL (32.0-36.0); Mean Platelet Volume 9.2 fL (9.4-12.4); Monocytes # (auto) 0.48 K/uL (0.11-0.59); Monocytes % (auto) 9.1 %; Neutrophils # (auto) 3.61 K/uL (1.40-6.50); Neutrophils % (auto) 68.7 %; Platelet Count 230 K/uL (130-400); Red Blood Count 2.93 M/uL (4.70-6.10); White Blood Count 5.25 K/ul (4.8-10.8)
[2024-04-24 12:34] LABS: Polychromasia 1+
[2024-04-24 12:36] LABS: Albumin Globulin Ratio 1.5 (0.9-2); Albumin Level 4.1 gm/dl (3.4-5.0); BUN Creatinine Ratio 20.3 (10-20); Bilirubin,Total 0.5 mg/dl (0.2-1.0); Creatinine Clr Calc Pharmacy 40.7 ml/min; Est GFR (African American) 37.7 ml/min; Est GFR (Non-African American) 32.5 ml/min; Globulin 2.7 gm/dl (2.5-4.0); Potassium 4.5 mmol/L (3.5-5.1); Total Protein 6.8 gm/dl (6.0-8.3)
[2024-04-24] MEDS ORDERED: PANTOPRAZOLE BOLUS/DRIP IV STA (12:38)
[2024-04-24 12:44] LABS: INR 1.3 (0.9-1.1); Partial Thromboplastin Time 27 Seconds (21-31); Prothrombin Time 13.5 Seconds (9.0-12.0)
--- NOTE | 2024-04-24 12:56 | XRay Report ---
XR chest 1V not portable CLINICAL HISTORY: Chest pain, nonspecific TECHNIQUE: Single frontal radiograph of the chest was obtained. Comparison: Comparison is made to chest radiograph 12/01/2021 FINDINGS: Median sternotomy wires are unchanged. Cardiomegaly is noted. The aortic arch is calcified. Vascular prominence is decreased from the prior exam. No evidence of pleural effusion or pneumothorax. IMPRESSION: No acute chest disease. Cardiomegaly is noted. ACT 112: Negative or not required by law. Electronically signed by: Henok Queen M.D. 04/24/2024 12:54 PM
[2024-04-24] MEDS: PANTOprazole 80 MG in DEXTROSE 5% 100 ML IV ONE (13:20)
--- NOTE | 2024-04-24 13:30 | History & Physical Report ---
Date of Service April 24, 2024 Assessment & Plan (1) Symptomatic anemia: (2) Acute GI bleeding: (3) CKD (chronic kidney disease) stage 3, GFR 30-59 ml/min: (4) Demand ischemia: (5) Elevated troponin: (6) CAD (coronary artery disease): (7) DM type 2 (diabetes mellitus, type 2): (8) Paroxysmal atrial fibrillation: Plan This is a 73-year-old male who has a significant past medical history of CAD status post CABG in 1999, T2DM, chronic combined systolic and diastolic CHF with improved EF status post GDMT of 50%, PAD, CKD stage III, MGUS with IgA kappa gammopathy who presents to ED secondary to lightheaded, dizziness and increasing shortness of breath with exertion x 1 week. Symptomatic anemia Acute GI bleeding suspected Admit to PCU Heme positive maroon stool in ED Consult gastroenterology -discussed with Dr. Harper who made no further rec ommendations at this time CT abd/pelvis: no acute abn, diverticulosis noted Keep n.p.o. preparation for anticipated endoscopy IV PPI gtt Hold Xarelto and aspirin Type and cross and transfusing 2 units, ordered in ED Patient already took home dose Lasix as well as blood pressure on lower side therefore will not administer IV Lasix in between units Monitor volume status closely Obtain anemia panel prior to transfusion last c scope in 2016 unremarkable, no mention of diverticulosis Elevated troponin Type II NSTEMI in setting of demand Initial troponin 80, will cycle Patient without chest pain, EKG with lateral changes suspect demand related due to anemia CKD3 follows [facility] baseline cr 1.5-1.8 mild elevation, cr 1.97 today avoid nephrotoxic agents CAD with history of CABG in 1999 Combined chronic systolic and diastolic CHF, EF improved with GDMT therapy Most recent echocardiogram revealed EF of 50 Repeat echo Continue statin, metoprolol Hold Lasix, Entresto, Jardiance in setting of GI bleed Daily weight, strict I&O History of PAF Hold Xarelto Continue metoprolol, currently in sinus rhythm T2DM, controlled Last A1c 7.4 in December, will update in a.m. Hold Jardiance, metformin and Actos Patient only on 500 mg of metformin due to GI intolerances MGUS - IGA [place] gammopathy previously eval by Heme/Onc Per PCP note wishes to only monitor labs for now DVT ppx: SCDS for now, xarelto on hold Dispo: PCU FULL CODE PCP: Vernon Pt was seen and examined in collaboration with Dr. Carson, please see addendum A total of 76 minutes was spent coordinating, documenting, and providing care for this patient excluding time spent in the performance of separately billed services. This included personally viewing all current laboratories and imaging studies, medication reconciliation, outpatient chart review, and discussion with specialists. History of Present Illness Chief Complaint: lightheaded/dizzy/LOPEZ x 1 week; Maroon colored stool x 2 days. Primary Care Provider: Anselmo Junior MD This is a 73-year-old male who has a significant past medical history of CAD status post CABG in 1999, T2DM, chronic combined systolic and diastolic CHF with improved EF status post GDMT of 50%, PAD, CKD stage III, MGUS with IgA kappa gammopathy who presents to ED secondary to lightheaded, dizziness and increasing shortness of breath with exertion x 1 week. He also reports maroon-colored stool for the past 2 days. is at bedside who also helps elicit history. He chronically has shortness with exertion, but she notes over the last week even walking to the kitchen he would have to take a break. He complains of feeling lightheaded and dizzy upon standing as well as prolonged walking and maroon-colored stools for the past 2 days. He denies any abdominal complaints including nausea, vomiting or pain. He denies any prior history of GI bleed. He is continue to take his Xarelto and aspirin as prescribed. He denies any syncope, chest pain, palpitations, hemoptysis, hematemesis, dysuria, hematuria, increased urgency or frequency with urination. He has noticed increased swelling to his ankles over the last week. Because of this he has taken Lasix daily for the past 3 to 4 days. Typically he only takes it 3 times a week. He has been compliant with his medications. His appetite has otherwise been stable. In ED patient remained hemodynamically stable although blood pressure on the softer side. His hemoglobin and hematocrit was 7.8 and 24.6 respectively along with an increased BUN and creatinine of 41.97. His troponin was elevated at 81. Chest x-ray negative for acute disease. He was type, cross and consented for 2 units of blood. He reports he did take his morning medications including Lasix today. Allergies Allergy/AdvReac Type Severity Reaction Status Date / Time lisinopril Allergy Intermediate DRY Verified 08/08/23 02:55 CONSISTENT COUGH Home Medications Medication Instructions Recorded Confirmed Type aspirin 81 mg tablet,delayed 81 mg PO DAILY 08/08/23 04/24/24 History release empagliflozin 10 mg tablet 10 mg PO QAM 08/08/23 04/24/24 History (Jardiance) ezetimibe 10 mg tablet (Zetia) 10 mg PO DAILY 08/08/23 04/24/24 History furosemide 40 mg tablet (Lasix) 40 mg PO .4DAYS WEEK 08/08/23 04/24/24 History metformin 500 mg tablet,extended 500 mg PO QAM 08/08/23 04/24/24 History release 24 hr metoprolol succinate 50 mg 50 mg PO QPM 08/08/23 04/24/24 History tablet,extended release 24 hr rivaroxaban 20 mg tablet (Xarelto) 20 mg PO PM 08/08/23 04/24/24 History sacubitril 24 mg-valsartan 26 mg 1 tab PO BID 08/08/23 04/24/24 History tablet simvastatin 80 mg tablet 80 mg PO DAILY 08/08/23 04/24/24 History metoprolol succinate 100 mg 100 mg PO DAILY 04/24/24 04/24/24 History tablet,extended release 24 hr pioglitazone 30 mg tablet 30 mg PO DAILY 04/24/24 04/24/24 History Past Med/Surg History Problem List (Updated 04/24/24 @ 16:06 by Dwaine Ortega MD) Anticoagulant long-term use (Acute) Elevated troponin (Acute) Elevated troponin Demand ischemia Symptomatic anemia Weakness (Acute) Acute GI bleeding (Acute) Acute heart failure with reduced ejection fraction and diastolic dysfunction Atrial tachycardia (Acute) HTN (hypertension) DVT prophylaxis Acute CHF (Acute) Tachycardia RBBB (right bundle branch block with left anterior fascicular block) Medical History CKD (chronic kidney disease) stage 3, GFR 30-59 ml/min Paroxysmal atrial fibrillation DM type 2 (diabetes mellitus, type 2) CAD (coronary artery disease) Dyslipidemia Kidney stone on left side Surgical History H/O shoulder surgery H/O neck surgery S/P CABG x 3 Family History Brother Diabetes Mother Diabetes Social History Smoking Status: Never smoker Second Hand Exposure: No; Do You Dip or Chew Tobacco: No; Hx Alcohol Use: No Hx Substance Use: No Preferred Language: Yi Communication Ability: Effective Communication Ability Comment: Not applicable Tile Grinder Required: No Beliefs That Will Affect Care: None marital status: Current Living Situation: Spouse How many Children do You have: 3 Feels Safe at Home: Yes Safety Concerns: Feels Safe At This Time Assistive Devices: None Review of Systems Review of Systems: All systems reviewed & are unremarkable except as noted in HPI & below Physical Exam Physical Exam: Constitutional: WD/WN, pale vitals as above, NAD, sitting up in bed, pleasant, conversing easily Head: Normocephalic, Atraumatic Eyes: PERRL, conjunctivae normal, anicteric sclerae ENMT: external ear and nose normal, oropharynx normal Neck: trachea midline, no thyromegaly normal visual inspection Respiratory: normal respiratory effort, lungs clear to auscultation, no wheeze, rales, rhonchi. Normal insp/exp effort, no accessory muscle use Cardiovascular: RRR, no murmur, +1 lower ext edema Vessels: no JVD or carotid bruit Chest: normal inspection of chest Abdomen: normal bowel sounds, soft, nontender, no hepatosplenomegaly Musculoskeletal: no cyanosis or clubbing, extremities motor strength 5/5 Skin: no rashes, warm and dry normal turgor Neurologic: PERRL, EOMI, accommodation nl, no face palsy, no dysarthria CN's II-XI intact bilaterally and moves all extremities Psychiatric: A+Ox3, euthymic affect Lymphatic: no cervical or axillary lymphadenopathy : deferred Results & Data Results & Data Vital Signs (Past 12 Hours) Vital Signs Temp Pulse Resp BP Pulse Ox O2 Del Method 04/24/24 12:24 85 18 96 04/24/24 12:23 80 18 96 Room Air 04/24/24 12:21 95 Room Air 04/24/24 11:37 36.8 C 78 18 102/60 95 Room Air Diagnostic Findings Chest X-Ray 04/24/24 11:42 XR chest 1V not portable CLINICAL HISTORY: Chest pain, nonspecific TECHNIQUE: Single frontal radiograph of the chest was obtained. Comparison: Comparison is made to chest radiograph 12/01/2021 FINDINGS: Median sternotomy wires are unchanged. Cardiomegaly is noted. The aortic arch is calcified. Vascular prominence is decreased from the prior exam. No evidence of pleural effusion or pneumothorax. IMPRESSION: No acute chest disease. Cardiomegaly is noted. ACT 112: Negative or not required by law. Electronically signed by: Henok Queen M.D. 04/24/2024 12:54 PM Medications Administered Medication List Discontinued Medications Pantoprazole Sodium 80 mg/ (Dextrose) 120 mls @ 480 mls/hr IV NOW ONE Stop: 04/24/24 13:14 Last Admin: 04/24/24 13:20 Dose: 480 mls/hr Documented By: [facility] ECG Additional Comments: I have independently reviewed and interpreted patient's admitting EKG which revealed: 76 NSR, RBBB ST dep/T wave inversion laterally, QTC 486s COVID-19 Results Results COVID-19 Adm Lab Results: RBC 2.93 M/uL (4.70-6.10) L 04/24/24 WBC 5.25 K/ul (4.8-10.8) 04/24/24 Hgb 7.8 g/dl (14.0-18.0) L 04/24/24 Hct 24.6 % (42.0-52.0) L 04/24/24 Plt Count 230 K/uL (130-400) 04/24/24 Neutrophils (%) (Auto) 68.7 % 04/24/24 Lymphocytes (%) (Auto) 18.7 % 04/24/24 Monocytes # (Auto) 0.48 K/uL (0.11-0.59) 04/24/24 Eosinophils # (Auto) 0.12 K/uL (0.00-0.50) 04/24/24 Immature Granulocyte % (Auto) 0.2 % 04/24/24 Neutrophils # (Auto) 3.61 K/uL (1.40-6.50) 04/24/24 Lymphocytes # (Auto) 0.98 K/uL (1.20-3.40) L 04/24/24 Monocytes # (Auto) 0.48 K/uL (0.11-0.59) 04/24/24 Eosinophils # (Auto) 0.12 K/uL (0.00-0.50) 04/24/24 Basophils # (Auto) 0.05 K/uL (0.00-0.20) 04/24/24 Immature Granulocyte # (Auto) 0.01 K/uL (0.01-0.20) 4 Polychromasia 1+ 04/24/24 Na 137 mmol/L (136-145) 04/24/24 K 4.5 mmol/L (3.5-5.1) 04/24/24 Cl 107 mmol/L (98-107) 04/24/24 CO2 21 mmol/L (21-32) 04/24/24 Anion Gap 9 (3-11) 04/24/24 BUN 40 mg/dl (6-23) H 04/24/24 Creatinine 1.97 mg/dl (0.6-1.4) H 04/24/24 BUN/Creatinine Ratio 20.3 (10-20) H 04/24/24 Glucose Level 152 mg/dl (70-99(Fasting)) H 04/24/24 Ca 9.0 mg/dl (8.6-10.3) 04/24/24 Total Bilirubin 0.5 mg/dl (0.2-1.0) 04/24/24 AST/SGOT 13 U/L (13-39) 04/24/24 ALT/SGPT 10 U/L (7-52) 04/24/24 Alkaline Phosphatase 50 U/L (34-104) 04/24/24 Total Protein 6.8 gm/dl (6.0-8.3) 04/24/24 Albumin 4.1 gm/dl (3.4-5.0) 04/24/24 Globulin 2.7 gm/dl (2.5-4.0) 04/24/24 Albumin/Globulin Ratio 1.5 (0.9-2) 04/24/24 Ferritin 6.8 ng/ml (8-388) L 04/24/24 PTT 27 Seconds (21-31) 04/24/24 INR 1.3 (0.9-1.1) H 04/24/24 Chest X-Ray 04/24/24 Code Status & VTE Plan VTE Prophylaxis Plan VTE Prophylaxis will be ordered: Yes Supervising Physician Co-Signing Physician Notes Attending Addendum: care coordinated with JANNA Cespedes please refer to her notes for full details, I agree with her notes patient seen and examined, records reviewed by myself as well on exam, patient seen resting in bed, comfortable denies abdominal pain, chest pain, dyspnea having intermittent maroon colored stools while at the ED no other symptoms VS noted and reviewed oriented x 3, not in distress, speaks in sentences with no effort nor accessory muscle use normal rate, regular rhythm, no murmurs clear breath sounds bilaterally non distended, soft, nontender no bipedal edema, erythema, warmth no neuro deficits all noted and reviewed including below ASSESSMENT AND PLAN GI BLEED Upper vs Lower hold Xarelto and ASA NPO GI consulted, notified ACUTE BLOOD LOSS ANEMIA secondary to above transfuse to maintain Hg >8 other diagnoses and plan of care as per JANNA Waters's notes Roberto Carson MD
--- NOTE | 2024-04-24 13:45 | CT Scan Report ---
CT abd pelvis wo con CLINICAL HISTORY: GIB TECHNIQUE: Helical axial images of the abdomen and pelvis were obtained. Automated dose lowering tech niques and/or adjustment according to patient size were utilized for this exam. This exam was perfor med without intravenous contrast. CT DOSE: 1282.24 mGy.cm COMPARISON: Comparison is made to CT abdomen and pelvis 07/10/2015 FINDINGS: Lower chest: No acute abnormality. Incidental note is made of decreased radiodensity of the blood po ol compatible to cardiac tissue compatible with anemia. Liver: Unremarkable. No focal lesions are seen. Gallbladder and biliary tree: No calcified gallstones. Normal caliber wall. No intra- or extrahepatic biliary ductal dilation. Pancreas: Unremarkable, no focal lesions. Spleen: Unremarkable. Adrenals: Unremarkable. Kidneys and ureters: Perinephric stranding is noted bilaterally. Bladder: Unremarkable. Reproductive organs: Prostatic calcifications are seen which may represent prior hemorrhage or granul omatous disease. Bowel: Diverticulosis is seen without diverticulitis. The appendix is normal. Small hiatal hernia is seen. Lymph nodes Retroperitoneal: Unremarkable. Pelvic: Unremarkable. Mesenteric: Unremarkable. Peritoneum: Normal. Vessels: Atherosclerotic calcifications are seen. Abdominal wall: Soft tissue stranding is seen about the umbilicus. Bones: Mild degenerative changes are seen. IMPRESSION: 1. No acute abnormality to explain hematochezia. 2. Findings compatible with anemia. ACT 112: Negative or not required by law. Electronically signed by: Henok Queen M.D. 04/24/2024 1:44 PM
[2024-04-24] MEDS: PANTOprazole 40 MG in DEXTROSE 5% MINI-B 100 ML IV SCH (13:48)
[2024-04-24 14:17] LABS: Folate (Folic Acid),Ser orPlas 13.12 ng/ml (>5.38)
[2024-04-24] MEDS ORDERED: GLUCOSE 10 TAB/TUBE PO PRN (15:13)
[2024-04-24] MEDS ORDERED: DEXTROSE 50% 50 ML SYRINGE IV PRN (15:13)
[2024-04-24] MEDS ORDERED: GLUCOSE 40% GEL 15 GM TUBE PO PRN (15:13)
[2024-04-24] MEDS ORDERED: GLUCAGON FOR INJ 1 MG VIAL SQ PRN (15:13)
[2024-04-24] MEDS ORDERED: ACETAMINOPHEN 325 MG TAB PO PRN (15:13)
[2024-04-24] MEDS ORDERED: CARBOHYDRATES FOR HYPOGLYCEMIA PO PRN (15:13)
[2024-04-24 15:19] LABS: Troponin I High Sensitivity 137.8 pg/ml (0-20)
[2024-04-24 15:33] LABS: Ferritin 6.8 ng/ml (8-388)
[2024-04-24] MEDS: INSULIN ASPART PER UNIT CHARGE SC SCH (18:27)
[2024-04-24 19:04] LABS: Hematocrit (blood only) 27.8 % (42.0-52.0); Hemoglobin 8.7 g/dl (14.0-18.0)
--- NOTE | 2024-04-24 21:19 | Communication Note ---
Date of Service: April 24, 2024 troponin 137 --> 261 EKG no signs of acute ischemia/infarct patient asymptomatic, no chest pain, dyspnea, palpitations, dizziness, nausea, sweats likely Demand Ischemia repeat Trop 1am monitor closely Roberto aCrson MD
[2024-04-24 21:32] LABS: Hematocrit (blood only) 29.3 % (42.0-52.0); Hemoglobin 9.2 g/dl (14.0-18.0)
[2024-04-24] MEDS: LANTUS PER UNIT CHARGE SQ SCH (21:37)
[2024-04-24] MEDS: METOPROLOL SUCC 50MG EXT REL TAB PO SCH (21:38)
[2024-04-25 00:47] LABS: Hematocrit (blood only) 25.2 % (42.0-52.0); Hemoglobin 8.2 g/dl (14.0-18.0)
[2024-04-25] MEDS: SODIUM CHLORIDE 0.9% 1,000 ML IV ONE (02:45)
[2024-04-25 06:29] LABS: Basophils # (auto) 0.04 K/uL (0.00-0.20); Basophils % (auto) 0.9 %; Eosinophils # (auto) 0.16 K/uL (0.00-0.50); Eosinophils % (auto) 3.5 %; Hematocrit (blood only) 23.8 % (42.0-52.0); Hemoglobin 7.5 g/dl (14.0-18.0); Immature Granulocytes # (auto) 0.01 K/uL (0.01-0.20); Immature Granulocytes % (auto) 0.2 %; Lymphocytes % (auto) 23.8 %; Mean Corpuscular Hemoglobin 26.3 pg (25.0-34.0); Mean Corpuscular Hgb Conc 31.5 g/dL (32.0-36.0); Mean Corpuscular Volume 83.5 fL (80.0-100.0); Mean Platelet Volume 9.2 fL (9.4-12.4); Monocytes % (auto) 10.8 %; Neutrophils # (auto) 2.81 K/uL (1.40-6.50); Neutrophils % (auto) 60.8 %; Platelet Count 194 K/uL (130-400); RDW Coefficient of Variation 14.8 % (11.5-14.5); RDW Standard Deviation 44.8 fL (36.4-46.3); Red Blood Count 2.85 M/uL (4.70-6.10); White Blood Count 4.62 K/ul (4.8-10.8)
[2024-04-25 06:44] LABS: Albumin Globulin Ratio 1.5 (0.9-2); Albumin Level 3.4 gm/dl (3.4-5.0); BUN Creatinine Ratio 19.9 (10-20); Bilirubin,Total 0.5 mg/dl (0.2-1.0); Calcium 8.3 mg/dl (8.6-10.3); Creatinine Clr Calc Pharmacy 46.6 ml/min; Est GFR (African American) 44.7 ml/min; Est GFR (Non-African American) 38.6 ml/min; Globulin 2.3 gm/dl (2.5-4.0); Magnesium 2.2 mg/dl (1.7-2.4); Potassium 4.1 mmol/L (3.5-5.1); Total Protein 5.7 gm/dl (6.0-8.3)
[2024-04-25] MEDS ORDERED: SODIUM CHLORIDE 0.9% 250 ML IV PRN (06:44)
[2024-04-25 06:52] LABS: Polychromasia 1+; Troponin I High Sensitivity 358.8 pg/ml (0-20)
[2024-04-25] MEDS: METOPROLOL SUCC 25MG EXT REL TAB PO SCH (07:33)
[2024-04-25] MEDS: SIMVASTATIN 80 MG TAB PO SCH ×2 (07:37→20:33)
[2024-04-25] MEDS ORDERED: Nursing to Pharmacy Communication SCH (07:45)
[2024-04-25 08:03] LABS: Estimated Average Glucose 151 mg/dl; Hemoglobin A1C 6.9 % (4.5-5.6)
[2024-04-25] MEDS ORDERED: METOPROLOL SUCC 50MG EXT REL TAB PO SCH (09:00)
--- NOTE | 2024-04-25 12:49 | Gastrointestinal Consultation ---
Date of Consultation April 25, 2024 Assessment & Plan (1) Acute GI bleeding: -Clear liquid diet today -NPO after midnight -Colonoscopy & EGD on 04/26/24 if anesthesia agreeable and no acute cardiac changes overnight -Continue Protonix gtt -Continue to monitor H/H Supervising Physician Co-Signing Physician Notes Agree with UNIQUE Woodward Interviewed and examined patient and agree with above Abd: Soft, NT, ND Continue current therapy and supportive care Proceed with EGD and colonoscopy in AM History of Present Illness Attending Physician: Quan Fung MD History of Present Illness Patient is a 73 yo male with PMH of CAD s/p CABG in 1999, DM2, systolic & diastolic CHF, PAD, CKD3, MGUS with IgA kappa gammopathy who presented to the ED with dizziness, lightheadedness, & increasing shotness of breath x 1 week. He notes ongoing maroon colored stool for the past 2 days. He notes the past week he has been dizzy & short of breath. He notes that Thursday04/23/24 he developed maroon stools. These episodes continued over the weekend. He notes that he had no abdominal pain. He last had a colonoscopy in 2016 with [employer]. He thinks he had a polyp at that time. He had a CT abd/pelvis that was unremarkable with the exception of diverticulosis. The patient takes Xarelto and Aspirin. He had an EKG without acute changes. A troponin was elevated to 380s but then began to come down. His H/H was 7.8/24.6 and he was transfused. It came up to 9.2/29.3, then dropped to 7.5/23.8. BUN now 34, Cr 1.71. He notes ongoing bleeding today. No abdominal pain still. Allergies Allergy/AdvReac Type Severity Reaction Status Date / Time lisinopril Allergy Intermediate DRY Verified 08/08/23 02:55 CONSISTENT COUGH Home Medications Medication Instructions Recorded Confirmed Type aspirin 81 mg tablet,delayed 81 mg PO DAILY 08/08/23 04/24/24 History release empagliflozin 10 mg tablet 10 mg PO QAM 08/08/23 04/24/24 History (Jardiance) ezetimibe 10 mg tablet (Zetia) 10 mg PO DAILY 08/08/23 04/24/24 History furosemide 40 mg tablet (Lasix) 40 mg PO .4DAYS WEEK 08/08/23 04/24/24 History metformin 500 mg tablet,extended 500 mg PO QAM 08/08/23 04/24/24 History release 24 hr metoprolol succinate 50 mg 50 mg PO QPM 08/08/23 04/24/24 History tablet,extended release 24 hr rivaroxaban 20 mg tablet (Xarelto) 20 mg PO PM 08/08/23 04/24/24 History sacubitril 24 mg-valsartan 26 mg 1 tab PO BID 08/08/23 04/24/24 History tablet simvastatin 80 mg tablet 80 mg PO DAILY 08/08/23 04/24/24 History metoprolol succinate 100 mg 100 mg PO DAILY 04/24/24 04/24/24 History tablet,extended release 24 hr pioglitazone 30 mg tablet 30 mg PO DAILY 04/24/24 04/24/24 History Patient History Medical History CKD (chronic kidney disease) stage 3, GFR 30-59 ml/min Paroxysmal atrial fibrillation DM type 2 (diabetes mellitus, type 2) CAD (coronary artery disease) Dyslipidemia Kidney stone on left side Surgical History H/O shoulder surgery H/O neck surgery S/P CABG x 3 Family History Brother Diabetes Mother Diabetes Social History Smoking Status: Never smoker Second Hand Exposure: No; Do You Dip or Chew Tobacco: No; Hx Alcohol Use: No Hx Substance Use: No Preferred Language: Bengali Communication Ability: Effective Communication Ability Comment: Not applicable [employer] Supervisor Required: No Beliefs That Will Affect Care: None marital status: Current Living Situation: Spouse How many Children do You have: 3 Other Information That Helps Us Care for You: No Feels Safe at Home: Yes Safety Concerns: Feels Safe At This Time Assistive Devices: None Review of Systems Gastrointestinal: + blood in stools; no abdominal pain, no bloating, no heartburn and no change in bowel habits Physical Exam Constitutional: well developed Respiratory: normal respiratory effort Cardiovascular: Rate/Rhythm: regular rate Gastrointestinal (Abdomen): normal bowel sounds, soft, nontender, no hepatosplenomegaly Psychiatric: Orientation: alert and oriented x 3 Results & Data Vital Signs (Past 12 Hours) Vital Signs Temp Pulse Pulse Resp BP BP Pulse Ox 04/25/24 11:44 36.8 C 87 20 101/68 95 04/25/24 11:30 36.8 C 76 19 100/61 96 04/25/24 10:30 36.8 C 77 20 103/64 96 04/25/24 10:26 36.7 C 74 16 104/67 95 04/25/24 10:00 36.7 C 76 18 100/63 96 04/25/24 09:45 36.7 C 76 18 100/63 95 04/25/24 09:45 36.8 C 74 18 109/69 94 04/25/24 09:32 36.7 C 77 18 102/62 94 04/25/24 08:00 68 04/25/24 07:23 36.5 C 77 18 93/58 L 93 04/25/24 02:50 36.7 C 72 18 93/53 L 94 O2 Del Method 04/25/24 11:44 04/25/24 11:30 04/25/24 10:30 04/25/24 10:26 04/25/24 10:00 04/25/24 09:45 04/25/24 09:45 04/25/24 09:32 04/25/24 08:00 04/25/24 07:23 Room Air 04/25/24 02:50 Room Air PG Care Time/CCT Total # of Minutes Spent Total Time Spent with Patient: Total time spent is greater than 50% in coordination of care (as documented) at patient's floor/unit and/or counseling patient: Coding Level of Care Code 28258 INT INP/OBS CARE 3/75MIN Diagnoses Acute GI bleeding K92.2
--- NOTE | 2024-04-25 15:51 | Hospitalist Progress Note ---
Date of Service April 25, 2024 Assessment & Plan (1) Acute GI bleeding: (2) Symptomatic anemia: (3) CKD (chronic kidney disease) stage 3, GFR 30-59 ml/min: (4) Demand ischemia: (5) CAD (coronary artery disease): (6) DM type 2 (diabetes mellitus, type 2): (7) Paroxysmal atrial fibrillation: Plan This is a 73-year-old male who has a significant past medical history of CAD status post CABG in 1999, T2DM, chronic combined systolic and diastolic CHF with improved EF status post GDMT of 50%, PAD, CKD stage III, MGUS with IgA kappa gammopathy who presents to ED secondary to lightheaded, dizziness and increasing shortness of breath with exertion x 1 week. Acute GI bleeding with severe iron deficiency and symptomatic anemia in setting of anticoagulation - CT abd/pelvis: no acute abn, diverticulosis noted - Iron studies show ferritin 6.8, iron saturation 5, iron 25. Folate and B12 normal - s/p 2 U PRBC, Hb this morning 7.5 - seen by GI. Plan for EGD/colonoscopy tomorrow. Clear liq diet today. Bowel prep per GI. NPO overnight. Admit to PCU - continue PPI, iv iron D1/5, continue to hold aspirin/xarelto for now - recheck H and H later today and in am. Transfuse as indicated Combined chronic systolic and diastolic CHF, looks compensated - Echo 04/25 shows EF 35-40%, moderate global hypokinesia, grade II diastolic dysfunction - Continue statin, metoprolol. Will give a dose of iv lasix today with the PRBC transfusion today. Hold home Lasix, Entresto, Jardiance for now. Resume after EGD/ colonoscopy tomorrow. Daily weight, strict I&O Elevated troponin, Type II NSTEMI in setting of demand- Troponin trend noted, now downtrending. No CP whatsoever. EKG noted. CKD3- follows [facility], baseline cr 1.5-1.8. Cr at baseline. monitor CAD with history of CABG in 1999 PAF- Hold Xarelto. Continue metoprolol, currently in sinus rhythm T2DM, controlled- Last A1c 7.4 in December. Hold Jardiance, metformin and Actos. SSI MGUS - IGA [place] gammopathy- previously eval by Heme/Onc. Per PCP note wishes to only monitor labs for now DVT ppx: SCDS for now, alisson on hold Dispo: EGD/Colonoscopy tomorrow Time spent: Approx 35 mins Admission and Anticipated Discharge Date Admission Date: April 24, 2024 Subjective Patient was seen and examined at bedside. He feels fine. No BM or bleeding since this morning. Seen by GI and planning for colonoscopy tomorrow. Clear liquid diet today and bowel prep tonight. He is getting second unit of PRBC per GI today. No fever, chills, CP, SOB, N/V/abd pain. Review of Systems Review of Systems: All systems reviewed & are unremarkable except as noted in Subjective Physical Exam Physical Exam: General: Lying comfortably in bed, not in distress, on room air HEENT: EOMI, JENNIFER, MMM Chest: Clear breath sounds bilaterally, no wheezes or crackles CVS: Regular rate and rhythm, normal heart sounds, no murmur Abdomen: Soft, non tender, not distended, normal bowel sounds Neuro: Awake, alert, oriented, conversing well, non focal Extremities: No cyanosis, clubbing or edema Results & Data Results & Data Vital Signs (Past 12 Hours) Vital Signs Temp Pulse Pulse Resp BP BP Pulse Ox 04/25/24 15:18 36.7 C 72 18 109/67 98 04/25/24 11:44 36.8 C 87 20 101/68 95 04/25/24 11:30 36.8 C 76 19 100/61 96 04/25/24 10:30 36.8 C 77 20 103/64 96 04/25/24 10:26 36.7 C 74 16 104/67 95 04/25/24 10:00 36.7 C 76 18 100/63 96 04/25/24 09:45 36.7 C 76 18 100/63 95 04/25/24 09:45 36.8 C 74 18 109/69 94 04/25/24 09:32 36.7 C 77 18 102/62 94 04/25/24 08:00 68 04/25/24 07:23 36.5 C 77 18 93/58 L 93 O2 Del Method 04/25/24 15:18 Room Air 04/25/24 11:44 04/25/24 11:30 04/25/24 10:30 04/25/24 10:26 04/25/24 10:00 04/25/24 09:45 04/25/24 09:45 04/25/24 09:32 04/25/24 08:00 04/25/24 07:23 Room Air Laboratory Results Short CBC 04/24/24 04/24/24 04/25/24 Range/Units 18:16 20:49 00:33 WBC (4.8-10.8) K/ul Hgb 8.7 L 9.2 L 8.2 L (14.0-18.0) g/dl Hct 27.8 L 29.3 L 25.2 L (42.0-52.0) % Plt Count (130-400) K/uL 04/25/24 Range/Units 06:00 WBC 4.62 L (4.8-10.8) K/ul Hgb 7.5 L (14.0-18.0) g/dl Hct 23.8 L (42.0-52.0) % Plt Count 194 (130-400) K/uL BMP 04/25/24 06:00 Sodium 139 Potassium 4.1 Chloride 108 H Carbon Dioxide 24 BUN 34 H Creatinine 1.71 H Glucose 102 H Calcium 8.3 L Liver Function 04/25/24 Range/Units 06:00 Total Bilirubin 0.5 (0.2-1.0) mg/dl AST 11 L (13-39) U/L ALT 8 (7-52) U/L Alkaline Phosphatase 40 (34-104) U/L Albumin 3.4 (3.4-5.0) gm/dl
[2024-04-25] MEDS: FUROSEMIDE INJ 20 MG/2 ML VIAL IV ONE (16:17)
[2024-04-25] MEDS: LAVAGE SOLUTION 4000ML PO SCH (17:28)
[2024-04-25 20:30] LABS: Hematocrit (blood only) 29.4 % (42.0-52.0); Hemoglobin 9.5 g/dl (14.0-18.0)
[2024-04-26] MEDS: IRON SUCROSE 200 MG in 0.9 % SODIUM CHLORIDE 100 ML IV SCH (07:52)
[2024-04-26 08:05] LABS: Hemoglobin 9.6 g/dl (14.0-18.0); Mean Corpuscular Volume 84.3 fL (80.0-100.0); Mean Platelet Volume 9.1 fL (9.4-12.4); Platelet Count 221 K/uL (130-400); RDW Coefficient of Variation 14.8 % (11.5-14.5); Red Blood Count 3.56 M/uL (4.70-6.10); White Blood Count 6.63 K/ul (4.8-10.8)
[2024-04-26 08:26] LABS: Calcium 9.1 mg/dl (8.6-10.3); Creatinine Clr Calc Pharmacy 46.9 ml/min; Est GFR (African American) 44.7 ml/min; Est GFR (Non-African American) 38.6 ml/min; Potassium 4.7 mmol/L (3.5-5.1)
--- NOTE | 2024-04-26 08:48 | History & Physical Bridge Note ---
Date of Service April 26, 2024 History & Physical Bridge Note I have examined the patient, reviewed the History & Physical and in the interval since the performance of the History & Physical I have noted the following changes of clinical significance: no changes noted Patient did have bright red stool throughout the bowel prep. H/H 9.6/30.0. Keep NPO & proceed with colonoscopy today. Supervising Physician Co-Signing Physician Notes Agree with UNIQUE Woodward as above Abd: Soft, NT, ND, +BS Continue current therapy and supportive care Proceed with EGD and colonoscopy now
--- NOTE | 2024-04-26 09:29 | Anesthesiology Consultation ---
Date of Service April 26, 2024 Assessment & Plan Chart Review Chart Review: Acceptable Risk for Surgery, Patient NOT seen in Pre Admission Testing and entry engineer initiated Consults Requested none ASA ASA3 Proposed Anesthesia Anesthesia Type: MAC Risk / Benefits Reviewed With: PT / POA / Parent / Guardian, Accepts Plan and Informed Consent Obtained History Surgery Operation Date: 04/26/24 16:45 Proposed Procedures p Colonoscopy EGD Dr. Jerrell Allan, DO Height/Weight Height: 5 ft 8 in Weight: 116 kg Allergies Allergy/AdvReac Type Severity Reaction Status Date / Time lisinopril Allergy Intermediate DRY Verified 04/26/24 09:16 CONSISTENT COUGH Medications Home Medications Medication Instructions Recorded Confirmed Last Taken aspirin 81 mg tablet,delayed 81 mg PO DAILY 08/08/23 04/24/24 Unknown release empagliflozin 10 mg tablet 10 mg PO QAM 08/08/23 04/24/24 Unknown (Jardiance) ezetimibe 10 mg tablet (Zetia) 10 mg PO DAILY 08/08/23 04/24/24 Unknown furosemide 40 mg tablet (Lasix) 40 mg PO .4DAYS WEEK 08/08/23 04/24/24 Unknown metformin 500 mg tablet,extended 500 mg PO QAM 08/08/23 04/24/24 Unknown release 24 hr metoprolol succinate 50 mg 50 mg PO QPM 08/08/23 04/24/24 Unknown tablet,extended release 24 hr rivaroxaban 20 mg tablet (Xarelto) 20 mg PO PM 08/08/23 04/24/24 Unknown sacubitril 24 mg-valsartan 26 mg 1 tab PO BID 08/08/23 04/24/24 Unknown tablet simvastatin 80 mg tablet 80 mg PO DAILY 08/08/23 04/24/24 Unknown metoprolol succinate 100 mg 100 mg PO DAILY 04/24/24 04/24/24 Unknown tablet,extended release 24 hr pioglitazone 30 mg tablet 30 mg PO DAILY 04/24/24 04/24/24 Unknown Active Medications Generic Name Dose Route Start Last Admin Trade Name Freq PRN Reason Stop Dose Admin Pantoprazole Sodium 40 mg/ 100 mls @ 20 mls/hr 04/24/24 13:20 04/26/24 07:52 Dextrose IV 05/24/24 13:19 8 mg/hr Q5H GINA 20 mls/hr Administration 8 MG/HR Iron Sucrose 200 mg/ Sodium 110 mls @ 220 mls/hr 04/26/24 09:00 04/26/24 08:31 Chloride IV 04/28/24 08:59 Infused DAILY GINA Infusion Protocol Insulin Aspart 0 units 04/24/24 18:00 04/26/24 06:51 Insulin Aspart Per Unit Charge SC 05/24/24 17:59 Not Given Q6 GINA Insulin Glargine 0 units 04/24/24 21:00 04/26/24 07:52 Lantus Per Unit Charge SQ 05/24/24 20:59 Not Given BID GINA Protocol Metoprolol Succinate 50 mg 04/24/24 21:00 04/24/24 21:38 Metoprolol Succ 50mg Ext Rel Tab PO 05/24/24 20:59 Not Given QPM GINA Metoprolol Succinate 25 mg 04/25/24 09:00 04/25/24 07:33 Metoprolol Succ 25mg Ext Rel Tab PO 05/25/24 08:59 Not Given DAILY GINA Polyethylene Glycol/Electrolytes 8 dose 04/25/24 18:00 04/26/24 03:56 Lavage Solution 4000ml PO 05/25/24 17:59 8 dose 0300,1800 GINA Administration Simvastatin 80 mg 04/25/24 21:00 04/25/24 20:33 Simvastatin 80 Mg Tab PO 05/25/24 20:59 80 mg HS GINA Administration NPO Date Last Intake of Fluids: 04/26/24 Time Last Intake of Fluids: 07:30 Date Last Intake of Solids: 04/24/24 Time Last Intake of Solids: 12:00 Past Medical History Medical History CKD (chronic kidney disease) stage 3, GFR 30-59 ml/min Paroxysmal atrial fibrillation DM type 2 (diabetes mellitus, type 2) CAD (coronary artery disease) Dyslipidemia Kidney stone on left side Exercise / Class Metabolic Activity II 4-5 Yardwork/Stairs/Walk up hill Past Family History Family History Brother Diabetes Mother Diabetes Past Surgical History Surgical History H/O shoulder surgery H/O neck surgery S/P CABG x 3 Past Anesthesia History No Hx of Anesthesia Complications (slow to wake up) and No Family Hx of Anesthesia Complications History of PONV No Hx of PONV and No Hx of Motion Sickness Social History Smoking Status: Never smoker tobacco type: cigarettes Do You Dip or Chew Tobacco: No Hx Alcohol Use: No Hx Substance Use: No Physical Exam Vital Signs Last Vital Signs Temp 36.0 C L 04/26/24 09:16 Pulse 92 H 04/26/24 09:16 Resp 16 04/26/24 09:16 BP 122/73 04/26/24 09:16 Pulse Ox 95 04/26/24 09:16 O2 Del Method Room Air 04/26/24 09:16 Constitutional + obese; no acute distress ENMT Mouth: no chipped teeth and no loose teeth Thyromental Distance: > or= 3.5 Finger Breadths Mallampati Class: II Neck normal visual inspection, trachea midline and + facial hair; neck extension not limited Respiratory normal respiratory effort; no respiratory distress Auscultation: lungs clear to auscultation bilaterally; no crackles, no rhonchi and no wheezes Cardiovascular Rate/Rhythm: regular rate and regular rhythm Heart Sounds: no gallop, no murmur and no cardiac rub Musculoskeletal Head/Neck/Chest: full ROM of neck Neurologic moves all extremities and awake Psychiatric Orientation: alert and oriented x 3 Testing Laboratory Results 04/26/24 07:47 04/26/24 07:47 PT 13.5 Seconds (9.0-12.0) H 04/24/24 12:02 INR 1.3 (0.9-1.1) H 04/24/24 12:02 APTT 27 Seconds (21-31) 04/24/24 12:02 Hemoglobin A1c 6.9 % (4.5-5.6) H 04/25/24 06:00 Blood Type O Positive 04/24/24 12:02 Antibody Screen NEGATIVE 04/24/24 12:02 04/26/24 06:20 POC Glucose 129 H Echocardiogram EF: 35-40%
--- NOTE | 2024-04-26 10:49 | GI REPORT ---
Patient Name: Emerson Barraza Procedure Date: 04/26/2024 9:48 AM Date of : 1950 Admit Type: Inpatient Age: 73 Gender: Male Attending MD: Hayden Allan DO, Procedure: Upper GI endoscopy Providers: Hayden Allan DO Referring MD: Referred Self Indications: Acute post hemorrhagic anemia Medicines: Monitored Anesthesia Care Complications: No immediate complications. Estimated Blood Loss: Estimated blood loss: none. Procedure: Pre-Anesthesia Assessment: - Prior to the procedure, a History and Physical was performed, and patient medications and allergies were reviewed. The patient's tolerance of previous anesthesia was also reviewed. The risks and benefits of the procedure and the sedation options and risks were discussed with the patient. All questions were answered, and informed consent was obtained. Prior Anticoagulants: The patient has taken Xarelto (rivaroxaban), last dose was 3 days prior to procedure. ASA Grade Assessment: III - A patient with severe systemic disease. After reviewing the risks and benefits, the patient was deemed in satisfactory condition to undergo the procedure. After obtaining informed consent, the endoscope was passed under direct vision. Throughout the procedure, the patient's blood pressure, pulse, and oxygen saturations were monitored continuously. The Endoscope was introduced through the mouth, and advanced to the second part of duodenum. The upper GI endoscopy was accomplished without difficulty. The patient tolerated the procedure well. Findings: The examined esophagus was normal. A small hiatal hernia was present. Localized moderate inflammation characterized by erosions was found in the gastric antrum. Biopsies were taken with a cold forceps for histology. The examined duodenum was normal. Impression: - Normal esophagus. - Small hiatal hernia. - Gastritis. Biopsied. - Normal examined duodenum. Recommendation: - Resume previous diet. - Continue present medications. - Await pathology results. - Return to primary care physician as previously scheduled. Hayden Allan DO 04/26/2024 10:49:16 AM This report has been signed electronically. Note Initiated On: 04/26/2024 9:48 AM Number of Addenda: 0 I attest to the content of the Intraoperative Record and orders documented therein, exceptions below {[id number]}
--- NOTE | 2024-04-26 10:54 | GI REPORT ---
Patient Name: Emerson Barraza Procedure Date: 04/26/2024 9:48 AM Date of : 1950 Admit Type: Inpatient Age: 73 Gender: Male Attending MD: Hayden Allan DO, Procedure: Colonoscopy Providers: Hayden Allan DO Referring MD: Referred Self Indications: Acute post hemorrhagic anemia Medicines: Monitored Anesthesia Care Complications: No immediate complications. Estimated Blood Loss: Estimated blood loss: none. Procedure: Pre-Anesthesia Assessment: - Prior to the procedure, a History and Physical was performed, and patient medications and allergies were reviewed. The patient's tolerance of previous anesthesia was also reviewed. The risks and benefits of the procedure and the sedation options and risks were discussed with the patient. All questions were answered, and informed consent was obtained. Prior Anticoagulants: The patient has taken Xarelto (rivaroxaban), last dose was 3 days prior to procedure. ASA Grade Assessment: III - A patient with severe systemic disease. After reviewing the risks and benefits, the patient was deemed in satisfactory condition to undergo the procedure. After I obtained informed consent, the scope was passed under direct vision. Throughout the procedure, the patient's blood pressure, pulse, and oxygen saturations were monitored continuously. The Scope was introduced through the anus and advanced to the terminal ileum. The colonoscopy was performed without difficulty. The patient tolerated the procedure well. The quality of the bowel preparation was good. The terminal ileum, ileocecal valve, appendiceal orifice, and rectum were photographed. Findings: The perianal and digital rectal examinations were normal. Multiple small diffuse angioectasias with stigmata of recent bleeding were found in the descending colon, in the transverse colon, in the ascending colon and in the cecum. Coagulation for hemostasis using argon plasma was successful to several areas, however, all of the areas with AVM's could not be treated due to the innumerable AVM's seen. Treatment was limited to bleeding AVM's. Non-bleeding internal hemorrhoids were found during retroflexion. The hemorrhoids were small. Impression: - Multiple recently bleeding colonic angioectasias. Treated with argon plasma coagulation (APC). - Non-bleeding internal hemorrhoids. - No specimens collected. Recommendation: - Return patient to [facility] for ongoing care. - Advance diet as tolerated. - Continue present medications. - Repeat colonoscopy PRN for retreatment. Hayden NancieRosita Case, DO 04/26/2024 10:54:08 AM This report has been signed electronically. Note Initiated On: 04/26/2024 9:48 AM Number of Addenda: 0 I attest to the content of the Intraoperative Record and orders documented therein, exceptions below {[id number]}
--- NOTE | 2024-04-26 11:23 | Hospitalist Progress Note ---
Date of Service April 26, 2024 Assessment & Plan (1) Acute GI bleeding: (2) Symptomatic anemia: (3) CKD (chronic kidney disease) stage 3, GFR 30-59 ml/min: (4) Demand ischemia: (5) CAD (coronary artery disease): (6) DM type 2 (diabetes mellitus, type 2): (7) Paroxysmal atrial fibrillation: Plan This is a 73-year-old male who has a significant past medical history of CAD status post CABG in 1999, T2DM, chronic combined systolic and diastolic CHF with improved EF status post GDMT of 50%, PAD, CKD stage III, MGUS with IgA kappa gammopathy who presents to ED secondary to lightheaded, dizziness and increasing shortness of breath with exertion x 1 week. Acute GI bleeding with severe iron deficiency and symptomatic anemia in setting of anticoagulation - CT abd/pelvis: no acute abn, diverticulosis noted - Iron studies show ferritin 6.8, iron saturation 5, iron 25. Folate and B12 normal - s/p 2 U PRBC, Hb this morning 7.8->8.7->9.2->8.2->7.5->9.5->9.6 - seen by GI. Plan for EGD/colonoscopy today. NPO for the same - continue PPI, iv iron D2/5, continue to hold aspirin/xarelto for now - recheck H and H in am. Transfuse as indicated Combined chronic systolic and diastolic CHF, looks compensated - Echo 04/25 shows EF 35-40%, moderate global hypokinesia, grade II diastolic dysfunction - Continue statin, metoprolol. Received iv lasix yesterday. Hold home Lasix, Entresto, Jardiance for now as npo. Resume after EGD/ colonoscopy as indicated. Daily weight, strict I&O Elevated troponin, Type II NSTEMI in setting of demand- Troponin trend noted, now downtrending. No CP whatsoever. EKG noted. CKD3- follows [facility], baseline cr 1.5-1.8. Cr at baseline. monitor CAD with history of CABG in 1999 PAF- Hold Xarelto. Continue metoprolol, currently in sinus rhythm T2DM, controlled- Last A1c 7.4 in December. Hold Jardiance, metformin and Actos. SSI MGUS - IGA Almond gammopathy- previously eval by Heme/Onc. Per PCP note wishes to only monitor labs for now DVT ppx: SCDS for now, xarelto on hold. resume when okay per GI depending on the findings Dispo: EGD/Colonoscopy today Time spent: Approx 35 mins Updated at bedside Admission and Anticipated Discharge Date Admission Date: April 24, 2024 Subjective Patient was seen and examined at bedside in presence of . He is waiting for EGD/colon. He had BMs with bowel prep and blood was noted, no clots. His Hb improved to 9.5. No N/V/abd pain. No fever or chills. No CP or SOB. Review of Systems Review of Systems: All systems reviewed & are unremarkable except as noted in Subjective Physical Exam Physical Exam: General: Lying comfortably in bed, not in distress, on room air HEENT: EOMI, JENNIFER, MMM Chest: Clear breath sounds bilaterally, no wheezes or crackles CVS: Regular rate and rhythm, normal heart sounds, no murmur Abdomen: Soft, non tender, not distended, normal bowel sounds Neuro: Awake, alert, oriented, conversing well, non focal Extremities: No cyanosis, clubbing or edema Results & Data Results & Data Vital Signs (Past 12 Hours) Vital Signs Temp Pulse Pulse Resp BP Pulse Ox O2 Del Method 04/26/24 11:08 91 H 18 106/79 94 Room Air 04/26/24 10:53 36.0 C L 87 12 97/43 L 94 Room Air 04/26/24 09:16 36.0 C L 92 H 16 122/73 95 Room Air 04/26/24 07:59 36.6 C 85 18 130/74 100 Room Air 04/26/24 07:22 86 04/26/24 04:01 36.7 C 80 16 121/76 96 Room Air Laboratory Results Short CBC 04/25/24 04/26/24 Range/Units 20:07 07:47 WBC 6.63 (4.8-10.8) K/ul Hgb 9.5 L 9.6 L (14.0-18.0) g/dl Hct 29.4 L 30.0 L (42.0-52.0) % Plt Count 221 (130-400) K/uL BMP 04/26/24 07:47 Sodium 137 Potassium 4.7 Chloride 101 Carbon Dioxide 26 BUN 24 H Creatinine 1.71 H Glucose 153 H Calcium 9.1
--- NOTE | 2024-04-26 11:52 | Anesthesiology Progress Note ---
Date of Service April 26, 2024 Anesthesia Post Procedure Vital Signs Vital Signs: Temp Pulse Pulse Resp BP Pulse Ox O2 Del Method 04/26/24 11:23 92 H 20 108/75 96 Room Air 04/26/24 11:08 91 H 18 106/79 94 Room Air 04/26/24 10:53 36.0 C L 87 12 97/43 L 94 Room Air 04/26/24 09:16 36.0 C L 92 H 16 122/73 95 Room Air 04/26/24 07:59 36.6 C 85 18 130/74 100 Room Air 04/26/24 07:22 86 04/26/24 04:01 36.7 C 80 16 121/76 96 Room Air 04/25/24 23:05 36.5 C 77 18 119/75 98 Room Air 04/25/24 22:40 77 04/25/24 19:26 36.6 C 71 18 109/69 99 Room Air 04/25/24 15:46 75 04/25/24 15:18 36.7 C 72 18 109/67 98 Room Air Transfer of Care Handoff Completed per policy Notes Mental Status: alert / awake / arousable and participated in evaluation Patient Amnestic to Procedure: Yes Nausea / Vomiting: adequately controlled Pain: adequately controlled Airway Patency, RR, SpO2: stable & adequate BP & HR: stable & adequate Hydration State: stable & adequate Anesthetic Complications: no major complications apparent
[2024-04-26] MEDS: LIDOCAINE 2% 2 ML VIAL/AMP(20MG/ML) INFIL ONE (12:06)
[2024-04-26] MEDS: PROPOFOL IV EMULSION 10 MG/ML 20 ML VIAL IV ONE ×2 (12:06)
[2024-04-26] MEDS: PHENYLEPHRINE 100MCG/ML 10ML SYR IV ONE (12:06)
[2024-04-26] MEDS ORDERED: Nursing to Pharmacy Communication SCH ×2 (12:15→19:15)
--- NOTE | 2024-04-26 12:41 | Cardiology Consultation ---
Date of Consultation April 26, 2024 Assessment & Plan (1) Elevated troponin: (2) Demand ischemia: (3) Symptomatic anemia: (4) Acute GI bleeding: (5) ASCVD (arteriosclerotic cardiovascular disease): (6) Ischemic cardiomyopathy: (7) RBBB (right bundle branch block with left anterior fascicular block): Plan 73-year-old male admitted with symptomatic anemia, GI bleeding as detailed below. Cardiology consultation requested to discuss risks and benefits of anticoagulation. Significant other and son present at bedside. Risks and benefits of anticoagulation discussed fully explained. Via shared decision making, we have decided that the risks of resuming anticoagulation are greater than the benefits. The patient will remain off of anticoagulation. Possible future Watchman referral discussed though will need firm documentation of atrial fibrillation. Recommend resumption of Aspirin 81 mg/day as soon as possible. Additional recommendations include continuation of metoprolol succinate, titrating back to the prior to arrival dose as tolerated. Sacubitril-Valsartan (Entresto) should be resumed as hemodynamics permit. Continue oral diuretic therapy with Furosemide (prior to arrival dosing was 40 mg three times per week). Resume Empagliflozin (Jardiance). Consider switching simvastatin 80 mg/day to atorvastatin 80 mg/day. Continue Ezetimibe (Zetia). Outpatient cardiology follow-up with Dr. Faith post discharge. I spent a total of 53 minutes on the date of service in preparation, delivery, and documentation of the care provided to this patient excluding any time spent in the performance of separately billed services. This visit was a split-shared visit with the substantive portion of the medical decision making performed by the supervising senior mainframe developer/billing provider. Supervising Physician Co-Signing Physician Notes Attending attestation: Case reviewed with the advanced practitioner. I have personally performed a history and physical examination on the patient. I have reviewed the advanced practitioner's documentation on the date of service referenced in note, and I agree with, and take responsibility for the plan of care. Subjective: Patient feeling somewhat improved having received 2 units of packed red blood cells and IV iron. Exam: Cardiovascular: Regular rhythm, no murmurs, 1+ bilateral lower extremity edema Data: As noted above Impression/ Plan: Current telemetry reveals sinus rhythm with occasional supraventricular ectopy and ventricular ectopy. Per review of previous rhythm strips, difficult to discern between atrial fibrillation/flutter or sinus rhythm with frequent ectopy. Given gastrointestinal bleeding, will hold anticoagulation with Xarelto indefinitely for now. Resume aspirin 81 mg daily and tolerated due to history of coronary heart disease. Future considerations include observation off of anticoagulation therapy or referral for Watchman device. I am concerned however with whether or not patient would tolerate 6 months of dual antiplatelet therapy post Watchman. Heart failure therapies as outlined above. Pioglitazone which is on the patient's outpatient medication list should likely be avoided given findings of edema and reduced ejection fraction. I spent a total of 20 minutes coordinating, documenting, and providing care for this patient excluding time spent in the performance of separately billed services or time spent by another provider. Brown Ribeiro, History of Present Illness Reason for Consultation: GI bleed with AVM's, GI recommending cardiology evaluation to discuss anticoagulation Requesting Physician: Dr. Quan Fung MD Attending Physician: Dr. Quan Fung MD History of Present Illness Mr. Emerson Barraza is a 73-year-old male who presented to [facility] on April 24, 2024 with complaints of fatigue, weakness, lightheadedness, dizziness, increased shortness of breath, lower extremity peripheral edema over the preceding week along with melanotic stools 2 days prior to arrival. Patient admitted with working diagnosis of acute GI bleeding, symptomatic anemia. Hemoglobin on presentation was 7.8 g/dL. Aspirin and Xarelto anticoagulation were held. CT scan revealed diverticulosis, no acute abnormality to explain hematochezia. Patient's status post transfusion of two units packed red blood cells without complication. Laboratory work revealed iron deficiency with IV iron prescribed. EGD on April 26, 2024 revealed a small hiatal hernia and gastritis. Colonoscopy revealed multiple recently bleeding colonic angioectasia s that were treated with argon plasma coagulation. Nonbleeding internal hemorrhoids were also observed. Cardiology consultation requested on April 26, 2024 to discuss anticoagulation. GI has not commented on the use of antiplatelet or anticoagulation on my chart review. Hemoglobin today 9.6 g/dL. Creatinine 1.71 mg/dL. Admission EKG revealed normal sinus rhythm at 76 bpm with a first-degree AV block, chronic right bundle branch block, diffuse T wave abnormality. When compared to prior available EKGs through the years, there are no new findings or significant changes High-sensitivity troponin elevated as follows: 81.0, 137.8, 261.7, 388.9, 358.8 pg/mL Resting echocardiography on April 25, 2024 revealed moderate reduction in LV systolic function, EF 35 to 40%. Personal review of the patient's cable technician reveals sinus rhythm throughout with heart rates predominantly in the 80s and 90s, rare PVC. Anticoagulation prescribed in November 2021 when telemetry monitoring revealed short paroxysms of possible atrial flutter/fibrillation, rhythm strips difficult to discern and son at bedside. Patient notes feeling improved following hospitalization and treatments. He specifically denies chest pain, palpitations, or worsening shortness of breath. Edema has improved. No PND. No near-syncope or syncope. No fevers or chills. Past Medical and Surgical History: Atherosclerotic coronary disease Status post coronary bypass grafting in 1999, receiving a CLEANING graft to LAD, saphenous vein graft to the obtuse marginal, saphenous vein graft to posterior descending artery. Cardiac catheterization January 06, 2022 with diffuse [place]om[place] vessel coronary disease, patent CLEANING graft, occluded vein grafts Acute hospitalization with decompensated congestive heart failure, new ca rdiomyopathy and atrial fibrillation with a rapid response, November 2021 Improved ejection fraction with guideline directed regimen and rhythm control, EF 50% Hypertension Chronic right bundle-branch block Hyperlipidemia/low HDL dyslipidemia Type 2 diabetes mellitus. Stage III chronic kidney disease Monoclonal gammopathy of unknown significance History of anterior cervical spine discectomy 1998. Remote extraction of renal lithiasis and circumcision. Arthroscopic right shoulder procedure in May 2013 Family History: Notable for diabetes mellitus in multiple family members. Mother at 90, dementia. Social History: Former smoker, age 16 to 29. No smokeless tobacco. No significant alcohol. Allergies Allergy/AdvReac Type Severity Reaction Status Date / Time lisinopril Allergy Intermediate DRY Verified 04/26/24 09:16 CONSISTENT COUGH Home Medications Medication Instructions Recorded Confirmed Type aspirin 81 mg tablet,delayed 81 mg PO DAILY 08/08/23 04/26/24 History release empagliflozin 10 mg tablet 10 mg PO QAM 08/08/23 04/24/24 History (Jardiance) ezetimibe 10 mg tablet (Zetia) 10 mg PO DAILY 08/08/23 04/24/24 History furosemide 40 mg tablet (Lasix) 40 mg PO .4DAYS WEEK 08/08/23 04/24/24 History metformin 500 mg tablet,extended 500 mg PO QAM 08/08/23 04/24/24 History release 24 hr metoprolol succinate 50 mg 50 mg PO QPM 08/08/23 04/24/24 History tablet,extended release 24 hr rivaroxaban 20 mg tablet (Xarelto) 20 mg PO PM 08/08/23 04/26/24 History sacubitril 24 mg-valsartan 26 mg 1 tab PO BID 08/08/23 04/24/24 History tablet simvastatin 80 mg tablet 80 mg PO DAILY 08/08/23 04/24/24 History metoprolol succinate 100 mg 100 mg PO DAILY 04/24/24 04/24/24 History tablet,extended release 24 hr pioglitazone 30 mg tablet 30 mg PO DAILY 04/24/24 04/24/24 History Patient History Medical History CKD (chronic kidney disease) stage 3, GFR 30-59 ml/min Paroxysmal atrial fibrillation DM type 2 (diabetes mellitus, type 2) CAD (coronary artery disease) Dyslipidemia Kidney stone on left side Surgical History H/O shoulder surgery H/O neck surgery S/P CABG x 3 Family History Brother Diabetes Mother Diabetes Social History Smoking Status: Never smoker Second Hand Exposure: No; Do You Dip or Chew Tobacco: No; Hx Alcohol Use: No Hx Substance Use: No Preferred Language: Trinidadian Communication Ability: Effective Communication Ability Comment: Not applicable Braille Translator Required: No Beliefs That Will Affect Care: None marital status: Current Living Situation: Spouse How many Children do You have: 3 Other Information That Helps Us Care for You: No Feels Safe at Home: Yes Safety Concerns: Feels Safe At This Time Assistive Devices: None Review of Systems Review of Systems: Complete Review of Systems is as stated above, negative, or noncontributory. Physical Exam Physical Exam: General: A&Ox3. NAD. HENT: Normocephalic. Atraumatic. Eyes: PER. Conjunctiva pink, sclera pale Neck: No JVD. Heart: Distant heart sounds. RRR. No murmur. Lungs: Clear to auscultation. Abdomen: +BS. No organomegaly. Extremities: Mild pitting pretibial edema. No clubbing. No cyanosis Limited neurological examination is without focal deficits. Pulses: Posterior tibial=2/4. Results & Data Vital Signs (Past 12 Hours) Vital Signs Temp Pulse Pulse Resp BP Pulse Ox O2 Del Method 04/26/24 11:53 36.6 C 92 H 20 106/69 94 Room Air 04/26/24 11:23 92 H 20 108/75 96 Room Air 04/26/24 11:08 91 H 18 106/79 94 Room Air 04/26/24 10:53 36.0 C L 87 12 97/43 L 94 Room Air 04/26/24 09:16 36.0 C L 92 H 16 122/73 95 Room Air 04/26/24 07:59 36.6 C 85 18 130/74 100 Room Air 04/26/24 07:22 86 04/26/24 04:01 36.7 C 80 16 121/76 96 Room Air Laboratory Results CBC 04/25/24 04/26/24 Range/Units 20:07 07:47 WBC 6.63 (4.8-10.8) K/ul RBC 3.56 L (4.70-6.10) M/uL Hgb 9.5 L 9.6 L (14.0-18.0) g/dl Hct 29.4 L 30.0 L (42.0-52.0) % Plt Count 221 (130-400) K/uL Comprehensive Metabolic Panel 04/26/24 Range/Units 07:47 Sodium 137 (136-145) mmol/L Potassium 4.7 (3.5-5.1) mmol/L Chloride 101 (98-107) mmol/L Carbon Dioxide 26 (21-32) mmol/L BUN 24 H (6-23) mg/dl Creatinine 1.71 H (0.6-1.4) mg/dl Glucose 153 H (70-99(Fasting)) mg/dl Calcium 9.1 (8.6-10.3) mg/dl Intake and Output 04/25/24 04/26/24 04/26/24 22:59 06:59 14:59 Intake Total 1186.334 / 4169.334 700 / 4169.334 282 / 282 Output Total 1625 / 2527 1 / 2527 Balance -438.666 / 1642.334 699 / 1642.334 282 / 282 Intake: IV 186.334 / 1423.334 100 / 1423.334 282 / 282 Iron Sucrose 200 mg In 0.9 % 110 / 110 Sodium Chloride 100 ml @ 220 mls/hr IV DAILY [facility] Rx#: [id number] PANTOprazole 40 mg In Dextrose 186.334 / 423.334 100 / 423.334 172 / 172 5% Mini-B 100 ml @ 8 MG/HR 20 mls/hr IV Q5H [facility] Rx#:[id number] Oral 1000 / 2180 600 / 2180 Output: Urine 162 / 2525 # Bowel Movements 1 / 2 Other: Other Intake Source oral intake is go-lytely prep # Unmeasured Voids 1 1 Weight 116 kg 116 kg Weight Measurement Method Standing Scale Patient Weight 04/27/24 06:59 Weight 116 kg Diagnostic Findings April 15, 2022 TTE Interpretation Summary (as per Dr. Ribeiro): The LV wall thickness is normal. There is a small sized basal septal and inferior wall motion abnormality with hypokinesis to akinesis of the segments. The qualitative LV ejection fraction is 50-54% (normal). The left ventricular diastolic function is mildly abnormal (grade I). Mild aortic valve sclerosis is present. Aortic stenosis is absent. Mild mitral regurgitation is present. The aortic root is mildly enlarged, 4.1 cm. Compared to the report of the prior study dated 01/13/2008, inferoseptal motion abnormality was noted on the resting study at that time with LVEF of 55-60% EKG on admission revealed normal sinus rhythm at 76 bpm with a first degree AV block, chronic right bundle branch block, diffuse T wave abnormality. QTc 486 ms. April 24, 2024 TTE Interpretation Summary ([facility], Dr. Ribeiro): Moderately dilated LV. Moderate global hypokinesis of the LV. Moderately reduced LV systolic function, EF 35-40%. Mild mitral regurgitation. Grade II diastolic dysfunction. Compared to the report of the previous study performed on 12/01/2021, the LVEF+25- 30% at that time. Normal left atrial size. Telemetry: Sinus in the 80's and 90's, rare ventricular ectopy
[2024-04-26] MEDS: PANTOprazole 40 MG in SYRINGE 0 ML IV SCH (21:06)
[2024-04-26] MEDS: INSULIN ASPART PER UNIT CHARGE SC SCH (21:07)
--- NOTE | 2024-04-26 22:24 | Electrocardiogram Report ---
Test Reason : Blood Pressure : / mmHG Vent. Rate : 076 BPM Atrial Rate : 076 BPM P-R Int : 206 ms QRS Dur : 130 ms QT Int : 432 ms P-R-T Axes : 039 026 121 degrees QTc Int : 486 ms Normal sinus rhythm Right bundle branch block T wave abnormality, consider lateral ischemia Abnormal ECG When compared with ECG of 03-DEC-2021 09:26, Premature ventricular complexes are no longer Present T wave inversion no longer evident in Inferior leads Confirmed by Cameron Torres ([id number]) on 04/26/2024 10:23:52 PM Referred By: REFERRED SELF Confirmed By:Cameron Torres
[2024-04-27 08:42] LABS: Hematocrit (blood only) 27.5 % (42.0-52.0); Hemoglobin 8.6 g/dl (14.0-18.0); Mean Corpuscular Hemoglobin 26.5 pg (25.0-34.0); Mean Corpuscular Hgb Conc 31.3 g/dL (32.0-36.0); Mean Corpuscular Volume 84.6 fL (80.0-100.0); Mean Platelet Volume 9.6 fL (9.4-12.4); Nucleated RBC # (auto) 0.02 K/uL (0.00-0.12); Nucleated RBC % (auto) 0.3 %; Platelet Count 226 K/uL (130-400); RDW Coefficient of Variation 15.1 % (11.5-14.5); RDW Standard Deviation 45.9 fL (36.4-46.3); Red Blood Count 3.25 M/uL (4.70-6.10); White Blood Count 6.88 K/ul (4.8-10.8)
[2024-04-27 09:01] LABS: BUN Creatinine Ratio 12.7 (10-20); Calcium 8.8 mg/dl (8.6-10.3); Creatinine Clr Calc Pharmacy 53.6 ml/min; Est GFR (African American) 52.4 ml/min; Est GFR (Non-African American) 45.2 ml/min; Potassium 3.9 mmol/L (3.5-5.1)
--- NOTE | 2024-04-27 09:56 | Cardiology Progress Note ---
Date of Service April 27, 2024 Assessment & Plan (1) Elevated troponin: (2) Demand ischemia: (3) Symptomatic anemia: (4) Acute GI bleeding: (5) ASCVD (arteriosclerotic cardiovascular disease): (6) Ischemic cardiomyopathy: (7) RBBB (right bundle branch block with left anterior fascicular block): Plan 73-year-old male admitted with symptomatic anemia, GI bleeding as detailed below. Cardiology consultation requested to discuss risks and benefits of anticoagulation. Via shared decision making, we have decided that the risks of resuming anticoagulation are greater than the benefits. The patient will remain off of anticoagulation. Possible future Watchman referral discussed though will need firm documentation of atrial fibrillation. Elevated heart rates noted, off of typical beta-cassie dosing. Examination with hypervolemia. Recommendations: Resume Aspirin 81 mg/day as soon as possible. 20 mg IV Furosemide now, along with 10 mEq's of potassium chloride. Increase metoprolol succinate dosing, 25 mg now (received 25 mg this AM) then 50 mg twice a day for now (prior to arrival dosing was 100 AM, 50 PM) Continue to hold Sacubitril-Valsartan (Entresto) for now Empagliflozin (Jardiance) to be resumed when able. Would not resume Pioglitazone Patient declines switching simvastatin 80 mg/day to atorvastatin 80 mg/day; will discuss further with Dr. Faith post discharge Continue Ezetimibe (Zetia). Outpatient cardiology follow-up with Dr. Faith post discharge. I spent a total of 40 minutes on the date of service in preparation, delivery, and documentation of the care provided to this patient excluding any time spent in the performance of separately billed services. This visit was a split-shared visit with the substantive portion of the medical decision making performed by the supervising assistant associate professor/billing provider. Admission and Anticipated Discharge Date Admission Date: April 24, 2024 Supervising Physician Co-Signing Physician Notes Attending attestation: Case reviewed with the advanced practitioner. I have personally performed a history and physical examination on the patient. I have reviewed the advanced practitioner's documentation on the date of service referenced in note, and I agree with, and take responsibility for the plan of care. Telemetry reviewed. Sinus rhythm in the 90s noted for the most part with occasional PVCs. Last night at 2339, episode of sinus rhythm with PVCs observed, brief episode of atrial tachycardia, no definite atrial fibrillation observed. Anticoagulation to remain on hold indefinitely. Resume antiplatelet therapy when able. I spent a total of 20 minutes coordinating, documenting, and providing care for this patient excluding time spent in the performance of separately billed services or time spent by another provider. Brown Ribeiro DO Subjective Patient seen and examined. Chart, medications, telemetry reviewed. Experienced palpitations last night that was then associated with chest pressure and shortness of breath, symptoms eased by sitting half upright. Telemetry: Sinus with premature ventricular complexes and paroxysmal atrial tachycardia. No overt atrial fibrillation observed. Hemoglobin 8.6 g/dL today Creatinine 1.50 mg/dL Review of Systems Review of Systems: Complete Review of Systems is as stated above, negative, or noncontributory. Physical Exam Physical Exam: General: A&Ox3. NAD. HENT: Normocephalic. Atraumatic. Eyes: PER. Conjunctiva pink, sclera pale Neck: JVD. Heart: Distant heart sounds. RRR. No murmur. Lungs: Clear to auscultation. Abdomen: +BS. No organomegaly. Extremities: 1+ edema. No clubbing. No cyanosis Limited neurological examination is without focal deficits. Pulses: Posterior tibial=2/4. Results & Data Vital Signs (Past 12 Hours) Vital Signs Temp Pulse Pulse Resp BP Pulse Ox O2 Del Method 04/27/24 08:00 37.0 C 99 H 18 102/65 97 Room Air 04/27/24 03:01 36.9 C 101 H 18 128/69 96 Room Air 04/26/24 22:57 37.1 C 91 H 18 107/66 92 Room Air 04/26/24 22:08 96 H Laboratory Results CBC 04/27/24 Range/Units 08:04 WBC 6.88 (4.8-10.8) K/ul RBC 3.25 L (4.70-6.10) M/uL Hgb 8.6 L (14.0-18.0) g/dl Hct 27.5 L (42.0-52.0) % Plt Count 226 (130-400) K/uL Comprehensive Metabolic Panel 04/27/24 Range/Units 08:04 Sodium 140 (136-145) mmol/L Potassium 3.9 (3.5-5.1) mmol/L Chloride 106 (98-107) mmol/L Carbon Dioxide 24 (21-32) mmol/L BUN 19 (6-23) mg/dl Creatinine 1.50 H (0.6-1.4) mg/dl Glucose 147 H (70-99(Fasting)) mg/dl Calcium 8.8 (8.6-10.3) mg/dl Intake and Output 04/26/24 04/27/24 04/27/24 22:59 06:59 14:59 Intake Total 360 / 1122 Output Total 500 / 500 Balance 360 / 1119 -500 / -500 Intake: Oral 360 / 840 Output: Urine 500 / 500 Other: # Unmeasured Voids 2 2 1 Weight 116.8 kg Weight Measurement Method Built in [facility]
[2024-04-27] MEDS: FUROSEMIDE INJ 20 MG/2 ML VIAL IV ONE (10:52)
[2024-04-27] MEDS: POTASSIUM CHLORIDE 10 MEQ TABCR PO ONE (10:52)
[2024-04-27] MEDS: METOPROLOL SUCC 25MG EXT REL TAB PO ONE (10:53)
--- NOTE | 2024-04-27 14:27 | Hospitalist Progress Note ---
Date of Service April 27, 2024 Assessment & Plan (1) Acute GI bleeding: (2) Symptomatic anemia: (3) CKD (chronic kidney disease) stage 3, GFR 30-59 ml/min: (4) Demand ischemia: (5) CAD (coronary artery disease): (6) DM type 2 (diabetes mellitus, type 2): (7) Paroxysmal atrial fibrillation: Plan This is a 73-year-old male who has a significant past medical history of CAD status post CABG in 1999, T2DM, chronic combined systolic and diastolic CHF with improved EF status post GDMT of 50%, PAD, CKD stage III, MGUS with IgA kappa gammopathy who presents to ED secondary to lightheaded, dizziness and increasing shortness of breath with exertion x 1 week. Acute GI bleeding with severe iron deficiency and symptomatic anemia in setting of anticoagulation - CT abd/pelvis: no acute abn, diverticulosis noted - Iron studies show ferritin 6.8, iron saturation 5, iron 25. Folate and B12 normal - s/p 2 U PRBC, Colonoscopy on multiple recently bleeding colonic angiectasias; treated with APC. Nonbleeding internal hemorrhoids EGD on 04/26normal esophagus, small hiatal hernia, gastritis Evaluated by cardiology; anticoagulation can be started. They recommend aspirin to be continued. Will reach out to GI regarding timing of aspirin resumption. Acute on chronic combined systolic and diastolic CHF, resolved with IV Lasix - Echo 04/25 shows EF 35-40%, moderate global hypokinesia, grade II diastolic dysfunction - Continue statin, metoprolol. Patient receiving IV Lasix today as per cardiology Elevated troponin, Type II NSTEMI in setting of demand- Troponin trend noted, now downtrending. no chest pain CKD3- follows [facility], baseline cr 1.5-1.8. Cr at baseline. monitor CAD with history of CABG in 1999 PAF-STOP Xarelto. Continue metoprolol, currently in sinus rhythm T2DM, controlled- Last A1c 7.4 in December. Hold Jardiance, metformin and Actos. SSI MGUS - IGA [place] gammopathy- previously eval by Heme/Onc. Per PCP note wishes to only monitor labs for now DVT ppx: SCDS for now, xarelto stopped Dispo: Monitor for signs of lower sign bleed. Possible dc in am if clinically stable. Time spent: Approx 35 mins Updated at bedside Please note the above document was generated using voice recognition software. It may contain grammatical, syntax or spelling errors. Any formal questions or concerns about the content, text or information contained within the body of this dictation should be directly addressed to the provider for clarification Admission and Anticipated Discharge Date Admission Date: April 24, 2024 Subjective Patient seen and examined at bedside. Patient reports that amount of bright red blood per rectum has decreased compared to admission Hemoglobin is stable around 8.5-9 g/dl Review of Systems Review of Systems: All systems reviewed & are unremarkable except as noted in Subjective Physical Exam Physical Exam: Constitutional: Alert oriented x 3; not in distress. Respiratory: normal respiratory effort, lungs clear to auscultation, no wheeze, rales, rhonchi. Normal insp/exp effort, no accessory muscle use Cardiovascular: RRR, no murmur, no edema Vessels: no JVD or carotid bruit Chest: normal inspection of chest Abdomen: soft, nontender Musculoskeletal: no cyanosis or clubbing, extremities motor strength 5/5 Skin: no rashes, warm and dry normal turgor Neurologic: PERRL, EOMI, accommodation nl, no face palsy, no dysarthria CN's II- XI intact bilaterally and moves all extremities Psychiatric: A+Ox3, euthymic affect Results & Data Results & Data Vital Signs (Past 12 Hours) Vital Signs Temp Pulse Pulse Resp BP Pulse Ox O2 Del Method 04/27/24 11:26 93 H 04/27/24 11:13 36.9 C 86 18 110/70 95 Room Air 04/27/24 08:00 37.0 C 99 H 18 102/65 97 Room Air 04/27/24 03:01 36.9 C 101 H 18 128/69 96 Room Air
[2024-04-27] MEDS: METOPROLOL SUCC 50MG EXT REL TAB PO SCH (20:05)
[2024-04-28] MEDS: ONDANSETRON INJ 2 MG/ML 2 ML VIAL IV PRN (06:33)
[2024-04-28 07:50] LABS: Basophils # (auto) 0.05 K/uL (0.00-0.20); Basophils % (auto) 0.7 %; Eosinophils # (auto) 0.26 K/uL (0.00-0.50); Eosinophils % (auto) 3.6 %; Hematocrit (blood only) 26.8 % (42.0-52.0); Hemoglobin 8.3 g/dl (14.0-18.0); Immature Granulocytes # (auto) 0.05 K/uL (0.01-0.20); Immature Granulocytes % (auto) 0.7 %; Lymphocytes # (auto) 0.91 K/uL (1.20-3.40); Lymphocytes % (auto) 12.7 %; Mean Corpuscular Hemoglobin 26.7 pg (25.0-34.0); Mean Corpuscular Volume 86.2 fL (80.0-100.0); Mean Platelet Volume 9.4 fL (9.4-12.4); Monocytes # (auto) 0.82 K/uL (0.11-0.59); Monocytes % (auto) 11.5 %; Neutrophils # (auto) 5.06 K/uL (1.40-6.50); Neutrophils % (auto) 70.8 %; Nucleated RBC # (auto) 0.03 K/uL (0.00-0.12); Nucleated RBC % (auto) 0.4 %; Platelet Count 227 K/uL (130-400); RDW Coefficient of Variation 15.2 % (11.5-14.5); Red Blood Count 3.11 M/uL (4.70-6.10); White Blood Count 7.15 K/ul (4.8-10.8)
[2024-04-28 08:48] LABS: BUN Creatinine Ratio 14.5 (10-20); Creatinine Clr Calc Pharmacy 46.8 ml/min; Est GFR (African American) 44.4 ml/min; Est GFR (Non-African American) 38.3 ml/min; Potassium 4.9 mmol/L (3.5-5.1)
--- NOTE | 2024-04-28 13:52 | Discharge Summary ---
Date of Service April 28, 2024 Admission HPI Per Admitting Provider This is a 73-year-old male who has a significant past medical history of CAD status post CABG in 1999, T2DM, chronic combined systolic and diastolic CHF with improved EF status post GDMT of 50%, PAD, CKD stage III, MGUS with IgA kappa gammopathy who presents to ED secondary to lightheaded, dizziness and increasing shortness of breath with exertion x 1 week. He also reports maroon-colored stool for the past 2 days. is at bedside who also helps elicit history. He chronically has shortness with exertion, but she notes over the last week even walking to the kitchen he would have to take a break. He complains of feeling lightheaded and dizzy upon standing as well as prolonged walking and maroon-colored stools for the past 2 days. He denies any abdominal complaints including nausea, vomiting or pain. He denies any prior history of GI bleed. He is continue to take his Xarelto and aspirin as prescribed. He denies any syncope, chest pain, palpitations, hemoptysis, hematemesis, dysuria, hematuria, increased urgency or frequency with urination. He has noticed increased swelling to his ankles over the last week. Because of this he has taken Lasix daily for the past 3 to 4 days. Typically he only takes it 3 times a week. He has been compliant with his medications. His appetite has otherwise been stable. In ED patient remained hemodynamically stable although blood pressure on the softer side. His hemoglobin and hematocrit was 7.8 and 24.6 respectively along with an increased BUN and creatinine of 41.97. His troponin was elevated at 81. Chest x-ray negative for acute disease. He was type, cross and consented for 2 units of blood. He reports he did take his morning medications including Lasix today. Admission Exam Per Admitting Provider Constitutional: WD/WN, pale vitals as above, NAD, sitting up in bed, pleasant, conversing easily Head: Normocephalic, Atraumatic Eyes: PERRL, conjunctivae normal, anicteric sclerae ENMT: external ear and nose normal, oropharynx normal Neck: trachea midline, no thyromegaly normal visual inspection Respiratory: normal respiratory effort, lungs clear to auscultation, no wheeze, rales, rhonchi. Normal insp/exp effort, no accessory muscle use Cardiovascular: RRR, no murmur, +1 lower ext edema Vessels: no JVD or carotid bruit Chest: normal inspection of chest Abdomen: normal bowel sounds, soft, nontender, no hepatosplenomegaly Musculoskeletal: no cyanosis or clubbing, extremities motor strength 5/5 Skin: no rashes, warm and dry normal turgor Neurologic: PERRL, EOMI, accommodation nl, no face palsy, no dysarthria CN's II-XI intact bilaterally and moves all extremities Psychiatric: A+Ox3, euthymic affect Lymphatic: no cervical or axillary lymphadenopathy : deferred Principal Diagnosis Acute lower GI bleed colonic angiectasias Discharge Exam Constitutional: WD/WN, vitals as above, NAD, sitting up in bed, pleasant, conversing easily Respiratory: normal respiratory effort, lungs clear to auscultation, no wheeze, rales, rhonchi. Normal insp/exp effort, no accessory muscle use Cardiovascular: RRR, no murmur, no edema Vessels: no JVD or carotid bruit Chest: normal inspection of chest Abdomen: normal bowel sounds, soft, nontender, no hepatosplenomegaly Musculoskeletal: no cyanosis or clubbing, extremities motor strength 5/5 Skin: no rashes, warm and dry normal turgor Neurologic: PERRL, EOMI, accommodation nl, no face palsy, no dysarthria CN's II- XI intact bilaterally and moves all extremities Psychiatric: A+Ox3, euthymic affect Discharge Data Allergies Allergy/AdvReac Type Severity Reaction Status Date / Time lisinopril Allergy Intermediate DRY Verified 04/26/24 09:16 CONSISTENT COUGH Consultations 04/24/24 12:35 ED Decision to Admit Stat 04/24/24 12:37 Consult Gastroenterology Routine 04/26/24 11:55 Consult Cardiology Routine Procedures Performed Operation Date: 04/26/24 16:45 Actual Procedures p EGD Biopsy Cytology - Hayden Cox Case, DO s Colonoscopy Hemostasis - Hayden [place]. Case, DO Ordered Studies 04/24/24 13:15 CT Abdomen and Pelvis [CT abd pelvis wo con] Stat Hospital Course (1) Acute GI bleeding: (2) Symptomatic anemia: (3) CKD (chronic kidney disease) stage 3, GFR 30-59 ml/min: (4) Demand ischemia: (5) CAD (coronary artery disease): (6) DM type 2 (diabetes mellitus, type 2): (7) Paroxysmal atrial fibrillation: Plan This is a 73-year-old male who has a significant past medical history of CAD status post CABG in 1999, T2DM, chronic combined systolic and diastolic CHF with improved EF status post GDMT of 50%, PAD, CKD stage III, MGUS with IgA kappa gammopathy who presents to ED secondary to lightheaded, dizziness and increasing shortness of breath with exertion x 1 week. Lower GI bleeding with severe iron deficiency and symptomatic anemia in setting of anticoagulation Colonic angiectasis - CT abd/pelvis: no acute abnormality, diverticulosis noted - Iron studies show ferritin 6.8, iron saturation 5, iron 25. Folate and B12 normal - s/p 2 U PRBC, Colonoscopy on multiple recently bleeding colonic angiectasias; treated with APC. Nonbleeding internal hemorrhoids EGD on 04/26normal esophagus, small hiatal hernia, gastritis Evaluated by cardiology; anticoagulation can be stopped. They recommend aspirin to be continued. GI recommends holding anticoagulation for 5 days after the procedure. Patient to go back on aspirin on May 02, 2024 Started on iron at discharge Pioglitazone is stopped as it can contribute to fluid retention Metoprolol dose adjusted to 50 mg twice a day Acute on chronic combined systolic and diastolic CHF, resolved with IV Lasix - Echo 04/25 shows EF 35-40%, moderate global hypokinesia, grade II diastolic dysfunction Please note the above document was generated using voice recognition software. It may contain grammatical, syntax or spelling errors. Any formal questions or concerns about the content, text or information contained within the body of this dictation should be directly addressed to the provider for clarification Total Time Total Time Spent Total Time Spent (In Minutes): 45 Total Time Includes: Examination of the Patient, Discharge Planning, Medication Reconciliation, Communication With Other Providers and Other Discharge Plan Discharge Items Patient Disposition: Home - Self-Care Reason For Visit: acute GIB Discharge Diagnosis: Lower GI bleed Blood loss anemia Colonic angiectasis Activity: Resume your previous activity Non-emergency contact: Primary Care Provider Call non-emergency contact if: you have any medication questions and your symptoms worsen Follow-up/Referrals: Anselmo Junior MD [Primary Care Provider] - (Date & Time 05/05/2024 10:40 AM Provider Anselmo Junior MD Department [facility] ) David Faith MD [Physician] - (The Cardiology office will contact you for a hospital follow up appointment.) Diet: Regular Addtl Attending Provider Instructions: You were admitted to the hospital due to low hemoglobin level. Your evaluated by gastroenterology. You underwent endoscopy and colonoscopy. Colonoscopy revealed multiple recently bleeding colonic angiectasias; was treated with APC. You are also found to have nonbleeding internal hemorrhoids. You are also evaluated by cardiology during the hospitalization; following medication changes are recommended: 1) Stop taking Xarelto given the findings on the colonoscopy 2) Stop taking pioglitazone as it can cause fluid retention and heart failure 3) Metoprolol dose has been changed to 50 mg twice a day. New prescription has been sent to pharmacy 4) Start taking aspirin and Entresto on Thursday, May 02, 2024. Please follow-up with your primary care doctor as scheduled. Will receive a call from cardiology office regarding follow-up with them You are prescribed iron tablets for Iron deficiency Anemia. Please take it once a day. You might experience constipation with the iron tablets. For this, you can take over the counter miralax. Pending Studies at Discharge: No Stand-Alone Forms: My [facility] [employer], Smoking Cessation Medications and DC Order Prescriptions: New metoprolol succinate 50 mg Tablet Extended Release 24 Hr 50 mg PO BID Qty: 60 0RF ferrous sulfate 325 mg (65 mg iron) tablet 325 mg PO DAILY Qty: 60 0RF Continued furosemide [Lasix] 40 mg Tablet 40 mg PO .4DAYS WEEK Rx Instructions: AND DIRECTED simvastatin 80 mg Tablet 80 mg PO DAILY ezetimibe [Zetia] 10 mg Tablet 10 mg PO DAILY Jardiance 10 mg Tablet 10 mg PO QAM metformin 500 mg Tablet Extended Release 24 Hr 500 mg PO QAM Held aspirin 81 mg Tablet,Delayed Release (Dr/Ec) 81 mg PO DAILY Hold Instructions: Resume on 05/02/24. Resume on May 02, 2024 sacubitril-valsartan 24-26 mg Tablet 1 tab PO BID Hold Instructions: Resume on 05/02/24. Rx Instructions: AM & HS Discontinued metoprolol succinate 50 mg Tablet Extended Release 24 Hr 50 mg PO QPM Xarelto 20 mg Tablet 20 mg PO PM Rx Instructions: must administer with evening meal, END DATE 09/19/2023 pioglitazone 30 mg tablet 30 mg PO DAILY metoprolol succinate 100 mg tablet extended release 24 hr 100 mg PO DAILY Discharge Orders: Discharge Order (Routine); Ordered 04/28/24 Ordered By: Christopher Gomez/Other Patient Handouts: GI Bleeding Causes and Tests, Anticoagulants, Managing Type 2 Diabetes, ED Lower GI Bleeding (Stable), ED Upper GI Bleeding (Stable) Admission Data Admit Date/Time: 04/24/24 12:37 Attending Provider: Christopher Burt Admit Provider: Roberto Carson Primary Care Provider: Anselmo Junior Other Providers: Roberto Carson; Alfredo Harper Jr; Brown Ribeiro Other Interventions: Discharge Summary Assessment (RN) Last Done: 04/28/24 10:24
== END 2024-04-28 10:50 | disposition home or self-care (01) | DRG 377 ==
LOC: ED 11:31 → SUATTDRO 12:37 → EDINP 12:37 → 2S 20:04
DX: K64.9 Unspecified hemorrhoids; I25.5 Ischemic cardiomyopathy; I45.2 Bifascicular block; Z88.8 Allergy status to other drugs, medicaments and biological substances; I13.0 Hypertensive heart and chronic kidney disease with heart failure and stage 1 through stage 4 chronic kidney disease, or unspecified chronic kidney disease; I21.A1 Myocardial infarction type 2; N18.30 Chronic kidney disease, stage 3 unspecified; I44.4 Left anterior fascicular block; I50.42 Chronic combined systolic (congestive) and diastolic (congestive) heart failure; Z79.01 Long term (current) use of anticoagulants; D62 Acute posthemorrhagic anemia; I45.19 Other right bundle-branch block; D47.2 Monoclonal gammopathy; K55.21 Angiodysplasia of colon with hemorrhage; Z79.84 Long term (current) use of oral hypoglycemic drugs; I48.0 Paroxysmal atrial fibrillation; E11.9 Type 2 diabetes mellitus without complications; Z95.1 Presence of aortocoronary bypass graft; I25.10 Atherosclerotic heart disease of native coronary artery without angina pectoris; Z79.82 Long term (current) use of aspirin; K57.31 Diverticulosis of large intestine without perforation or abscess with bleeding; K29.71 Gastritis, unspecified, with bleeding